=== PATIENT | male | born 1990 | race Two or more races ===

== ENCOUNTER 2019-09-05 02:22 | Observation (INO) | payer OTHER ==
[~2019-09-05] VITALS: Ht 190.5 cm; Wt 101.7 kg
[~2019-09-05 02:22] MED LIST: DILT180C29 PO; FLEC100T PO; RIVA20TA2 PO
[2019-09-05 02:43] LABS: BASO % 1 % (0-3); EOS # 0.2 x10^3/uL (0.0-0.7); EOS % 3 % (0-3); HEMOGLOBIN 15.7 g/dL (13.0-17.5); LYMPH # 3.3 x10^3/uL (1.0-4.8); LYMPH % 48 % (24-48); MEAN CORPUSCULAR HEMOGLOBIN 30 pg (25-35); MEAN CORPUSCULAR HGB CONC 34 g/dL (31-37); MEAN CORPUSCULAR VOLUME 88 fL (79-100); MONO # 0.7 x10^3/uL (0.0-1.1); MONO % 10 % (0-9); NEUT # 2.7 x10^3/uL (1.8-7.7); NEUT % 39 % (31-73); PLATELET COUNT 228 x10^3/uL (140-400); RED BLOOD COUNT 5.25 x10^6/uL (4.30-5.70); RED CELL DISTRIBUTION WIDTH 13.6 % (11.5-14.5)
[2019-09-05] MEDS: NITROGLYCERIN SUBLINGUAL 0.4 MG BOTTLE OF 25. SL PRN ×2 (02:51→03:08)
[2019-09-05 02:53] LABS: CALCIUM 8.9 mg/dL (8.5-10.1); CREATININE 1.1 mg/dL (0.7-1.3); GFR 79.1; POTASSIUM 3.7 mmol/L (3.5-5.1)
[2019-09-05 02:58] LABS: ALBUMIN 4.1 g/dL (3.4-5.0); TOTAL PROTEIN 7.5 g/dL (6.4-8.2)
[2019-09-05 02:59] LABS: ALBUMIN/GLOBULIN RATIO 1.2 (1.0-1.7); MAGNESIUM 2.1 mg/dL (1.8-2.4)
[2019-09-05] MEDS ORDERED: ASPIRIN CHEWABLE 81 MG TABLET. PO ONE (03:00)
--- NOTE | 2019-09-05 03:01 | RAD ---
EXAM: CHEST 1 VIEW History: Chest pain COMPARISON: 08/09/2019 TECHNIQUE: Single portable radiograph of the chest FINDINGS: The cardiac silhouette is unremarkable. The lungs are clear bilaterally. The costophrenic sulci are clear and well demarcated. . IMPRESSION: No radiographic evidence of an acute cardiopulmonary process. Electronically signed by: Bayron Vyas MD (09/05/2019 2:58 AM) [id number]
[2019-09-05 03:03] LABS: AMPHETAMINE/METHAMPHETAMINE NEG (NEG); BARBITURATES NEG (NEG); BENZODIAZEPINES NEG (NEG); CANNABINOIDS NEG (NEG); COCAINE NEG (NEG); METHADONE NEG (NEG); OPIATES NEG (NEG); PHENCYCLIDINE NEG (NEG)
--- NOTE | 2019-09-05 03:05 | PHYS DOC ---
Past Medical History Past Medical History: A-Fib, High Cholesterol, Hepatitis, Other Additional Past Medical Histor: HEP C, CHRONIC BACK PAIN Past Surgical History: Other Additional Past Surgical Histo: UNKNOWN SURGICAL HISTORY Alcohol Use: None Drug Use: None The HEART Score for CP Pts HEART Score for Chest Pain: HEART Score for Chest Pain Response (Comments) Value History Slighlty/Non-Suspicious 0 ECG Nonspecific Repolarizatio 1 Age < 45 0 Risk Factors 1 or 2 Risk Factors 1 Troponin < Normal Limit 0 Total 2 Risk Factors: Risk Factors: DM, Current or recent (<one month) smoker, HTN, HLP, family history of CAD, obesity. Risk Scores: Score 0 - 3: 2.5% MACE over next 6 weeks - Discharge Home Score 4 - 6: 20.3% MACE over next 6 weeks - Admit for Clinical Observation Score 7 - 10: 72.7% MACE over next 6 weeks - Early Invasive Strategies Attending Signature I have participated in the care of this patient and I have reviewed and agree with all pertinent clinical information above including history, exam, and recommendations. Adult General Chief Complaint Chief Complaint: CHEST PAIN HPI HPI 28-year-old male with underlying history of atrial fib/atrial flutter presents to the emergency Department complaints of left-sided chest pain radiation of his left arm into his neck. He describes a squeezing sensation, states is pretty constant. Pain started around midnight. He does describe nausea. Patient is well describes history of syncope most recent days ago. He has underlying history of atrial fibrillation, hyperlipidemia and hepatitis. Nothing makes his symptoms worse, nothing makes his symptoms better. Review of Systems Review of Systems Constitutional: Denies fever or chills [] Respiratory: Denies cough or shortness of breath [] Cardiovascular: No additional information not addressed in HPI [] GI: Denies abdominal pain, + nausea, no vomiting, bloody stools or diarrhea [] Musculoskeletal: Denies back pain or joint pain [] Neurologic: Denies headache, focal weakness or sensory changes [] All other systems were reviewed and found to be within normal limits, except as documented in this note. Current Medications Current Medications Current Medications Medications (Trade) Dose Ordered Sig/Kwaku Start Time Stop Time Status Last Admin Dose Admin Aspirin (Children'S Aspirin) 324 mg 1X ONCE 09/05/19 03:00 09/05/19 03:01 DC 09/05/19 02:50 324 MG Morphine Sulfate (Morphine Sulfate) 2 mg 1X ONCE 09/05/19 03:15 09/05/19 03:16 DC 09/05/19 03:34 2 MG Nitroglycerin (Nitrostat) 0.4 mg PRN Q5MIN PRN 09/05/19 02:45 09/05/19 03:29 DC 09/05/19 03:08 0.4 MG Ondansetron HCl (Zofran) 4 mg 1X ONCE 09/05/19 03:15 09/05/19 03:16 DC 09/05/19 03:34 4 MG Allergies Allergies Allergies Coded Allergies Type Severity Reaction Last Updated Verified No Known Drug Allergies 08/09/19 No Physical Exam Physical Exam Constitutional: Well developed, well nourished, no acute distress, non-toxic appearance. [] HENT: Normocephalic, atraumatic, bilateral external ears normal, oropharynx moist, no oral exudates, nose normal. [] Eyes: PERRLA, EOMI, conjunctiva normal, no discharge. [] Neck: Normal range of motion, no tenderness, supple, no stridor. [] Cardiovascular:Heart rate regular rhythm, no murmur [] Lungs & Thorax: Bilateral breath sounds clear to auscultation [] Abdomen: Bowel sounds normal, soft, no tenderness, no masses, no pulsatile masses. [] Skin: Warm, dry, no erythema, no rash. [] Extremities: No tenderness, no edema. [] Neurologic: Alert and oriented X 3, no focal deficits noted. [] Psychologic: Affect normal, judgement normal, mood normal. [] Current Patient Data Vital Signs Vital Signs Date Time Temp Pulse Resp B/P (MAP) Pulse Ox O2 Delivery O2 Flow Rate FiO2 09/05/19 03:12 55 16 114/72 (86) 97 Room Air 09/05/19 02:32 98.2 98.2 Lab Values Laboratory Tests Test 09/05/19 02:36 09/05/19 02:51 White Blood Count 7.0 x10^3/uL (4.0-11.0) Red Blood Count 5.25 x10^6/uL (4.30-5.70) Hemoglobin 15.7 g/dL (13.0-17.5) Hematocrit 46.0 % (39.0-53.0) Mean Corpuscular Volume 88 fL (79-100) Mean Corpuscular Hemoglobin 30 pg (25-35) Mean Corpuscular Hemoglobin Concent 34 g/dL (31-37) Red Cell Distribution Width 13.6 % (11.5-14.5) Platelet Count 228 x10^3/uL (140-400) Neutrophils (%) (Auto) 39 % (31-73) Lymphocytes (%) (Auto) 48 % (24-48) Monocytes (%) (Auto) 10 % (0-9) H Eosinophils (%) (Auto) 3 % (0-3) Basophils (%) (Auto) 1 % (0-3) Neutrophils # (Auto) 2.7 x10^3/uL (1.8-7.7) Lymphocytes # (Auto) 3.3 x10^3/uL (1.0-4.8) Monocytes # (Auto) 0.7 x10^3/uL (0.0-1.1) Eosinophils # (Auto) 0.2 x10^3/uL (0.0-0.7) Basophils # (Auto) 0.0 x10^3/uL (0.0-0.2) Sodium Level 140 mmol/L (136-145) Potassium Level 3.7 mmol/L (3.5-5.1) Chloride Level 104 mmol/L (98-107) Carbon Dioxide Level 29 mmol/L (21-32) Anion Gap 7 (6-14) Blood Urea Nitrogen 13 mg/dL (8-26) Creatinine 1.1 mg/dL (0.7-1.3) Estimated GFR (Cockcroft-Gault) 79.1 BUN/Creatinine Ratio 12 (6-20) Glucose Level 88 mg/dL (70-99) Calcium Level 8.9 mg/dL (8.5-10.1) Magnesium Level 2.1 mg/dL (1.8-2.4) Total Bilirubin 1.0 mg/dL (0.2-1.0) Aspartate Amino Transferase (AST) 42 U/L (15-37) H Alanine Aminotransferase (ALT) 75 U/L (16-63) H Alkaline Phosphatase 62 U/L (46-116) Troponin I Quantitative < 0.017 ng/mL (0.000-0.055) LD-San-S-Type Natriuretic Peptide 18 pg/mL (0-124) Total Protein 7.5 g/dL (6.4-8.2) Albumin 4.1 g/dL (3.4-5.0) Albumin/Globulin Ratio 1.2 (1.0-1.7) Urine Opiates Screen Neg (NEG) Urine Methadone Screen Neg (NEG) Urine Barbiturates Neg (NEG) Urine Phencyclidine Screen Neg (NEG) Urine Amphetamine/Methamphetamine Neg (NEG) Urine Benzodiazepines Screen Neg (NEG) Urine Cocaine Screen Neg (NEG) Urine Cannabinoids Screen Neg (NEG) Urine Ethyl Alcohol Neg (NEG) Laboratory Tests 09/05/19 02:36 Laboratory Tests 09/05/19 02:36 EKG EKG EKG reviewed, normal sinus rhythm, heart rate 54, no evidence of ST elevation IA, interpretation time 0233, normal axis[] Radiology/Procedures Radiology/Procedures [] Course & Med Decision Making Course & Med Decision Making Pertinent Labs and Imaging studies reviewed. (See chart for details) []28-year-old male with underlying history of atrial fib/atrial flutter presents to the emergency Department complaints of left-sided chest pain radiation of his left arm into his neck. He describes a squeezing sensation, states is pretty constant. Pain started around midnight. He does describe nausea. Patient is w ell describes history of syncope most recent days ago. He has underlying history of atrial fibrillation, hyperlipidemia and hepatitis. Nothing makes his symptoms worse, nothing makes his symptoms better. Dragon Disclaimer Dragon Disclaimer This electronic medical record was generated, in whole or in part, using a voice recognition dictation system. Departure Departure Referrals: UNKNOWN PCP NAME (PCP) NATHANAEL ORTIZ MD Sep 05, 2019 03:05
[2019-09-05] MEDS ORDERED: MORPHINE SULFATE 2 MG/ML VIAL. IV ONE (03:15)
[2019-09-05] MEDS ORDERED: ONDANSETRON PF 4 MG/2 ML VIAL. IV ONE (03:15)
[2019-09-05] MEDS ORDERED: NITROGLYCERIN SUBLINGUAL 0.4 MG BOTTLE OF 25. SL PRN (03:30)
[2019-09-05] MEDS ORDERED: ONDANSETRON PF 4 MG/2 ML VIAL. IV PRN (03:30)
[2019-09-05] MEDS ORDERED: ACETAMINOPHEN 325 MG TABLET. PO PRN (03:30)
[2019-09-05 04:56] VITALS: BP 119/77
[2019-09-05] MEDS: MORPHINE SULFATE 2 MG/ML VIAL. IV PRN ×3 (06:06→20:49)
[2019-09-05 07:00] VITALS: BP 127/75
[2019-09-05] MEDS ORDERED: FLU VAX QS 2019-20 (36MOS+)/PF 0.5 ML SYRINGE. VAX IM ONE (09:00)
--- NOTE | 2019-09-05 09:10 | PDOC1 ---
History and Physical Date of Admission Date of Admission DATE: 09/05/19 TIME: 09:10 Identification/Chief Complaint Chief Complaint Chest pain Source Source: Patient History of Present Illness History of Present Illness Mr Mcclelland is a 28yo M incarcerated currently with PMHx A-Fib, High Cholesterol, Hepatitis C (active) who p/w left-sided chest pain radiation of his left arm into his neck and syncopal episodes. He describes a squeezing sensation, states is pretty constant. Pain started around midnight. He does describe nausea. Patient is well describes history of syncope most recent days ago. He has underlying history of atrial fibrillation, hyperlipidemia and hepatitis. Nothing makes his symptoms worse, nothing makes his symptoms better. He has been keeping a journal of his syncopal episodes and he also notes he has not been eating lately, claims it is due to 2nd floor, top bunk placement. EKG is NSR and troponin x2 negative. AST, ALT mildly elevated. CXR clear. He was successfully cardioverted previously, continues on xarelto. Past Medical History Cardiovascular: AFIB, HTN, Hyperlipidemia Pulmonary: No pertinent hx CENTRAL NERVOUS SYSTEM: Migraine Heme/Onc: Other Hepatobiliary: Hep A/B/C Psych: Anxiety, Other Renal/: Acute renal failure Endocrine: No pertinent hx Past Surgical History Past Surgical History: Other Family History Family History: Other Social History Smoke: No ALCOHOL: none Drugs: Cocaine Current Problem List Problem List Problems Medical Problems: (1) Chest pain Status: Acute Current Medications Current Medications Current Medications Aspirin (Children'S Aspirin) 324 mg 1X ONCE PO Last administered on 09/05/19at 02:50; Start 09/05/19 at 03:00; Stop 09/05/19 at 03:01; Status DC Nitroglycerin (Nitrostat) 0.4 mg PRN Q5MIN PRN SL CP RATING > 1/10 Last administered on 09/05/19at 03:08; Start 09/05/19 at 02:45; Stop 09/05/19 at 03:29; Status DC Morphine Sulfate (Morphine Sulfate) 2 mg 1X ONCE IV Last administered on 09/05/19at 03:34; Start 09/05/19 at 03:15; Stop 09/05/19 at 03:16; Status DC Ondansetron HCl (Zofran) 4 mg 1X ONCE IV Last administered on 09/05/19at 03:34; Start 09/05/19 at 03:15; Stop 09/05/19 at 03:16; Status DC Ondansetron HCl (Zofran) 4 mg PRN Q8HRS PRN IV NAUSEA/VOMITING; Start 09/05/19 at 03:30; Stop 09/06/19 at 03:29 Morphine Sulfate (Morphine Sulfate) 2 mg PRN Q2HR PRN IV PAIN Last administered on 09/05/19at 06:06; Start 09/05/19 at 03:30; Stop 09/06/19 at 03:29 Acetaminophen (Tylenol) 650 mg PRN Q4HRS PRN PO FEVER; Start 09/05/19 at 03:30; Stop 09/06/19 at 03:29 Nitroglycerin (Nitrostat) 0.4 mg PRN Q5MIN PRN SL CHEST PAIN Last administered on 09/05/19at 06:00; Start 09/05/19 at 03:30; Stop 09/06/19 at 03:29 Influenza Virus Vaccine Quadrival (Afluria Quad 2019-20 (3yr Up) Syringe) 0.5 ml ONCE ONCE VAX IM ; Start 09/05/19 at 09:00; Stop 09/05/19 at 09:01; Status DC Active Scripts Active Reported Flecainide Acetate 100 Mg Tablet 50 Mg PO BID Xarelto (Rivaroxaban) 20 Mg Tablet 20 Mg PO DAILY Allergies Allergies: Coded Allergies: No Known Drug Allergies (Unverified , 08/09/19) ROS General: YES: Fatigue, Malaise, Appetite; No: Chills, Night Sweats, Other PSYCHOLOGICAL ROS: No: Anxiety, Behavioral Disorder, Concentration difficultie, Decreased libido, Depression, Disorientation, Hallucinations, Hostility, Irritablity, Memory difficulties, Mood Swings, Obsessive thoughts, Physical abuse, Sexual abuse, Sleep disturbances, Suicidal ideation, Other Eyes: No Blurry vision, No Decreased vision, No Double vision, No Dry eyes, No Excessive tearing, No Eye Pain, No Itchy Eyes, No Loss of vision, No Photopho sunitha, No Scotomata, No Uses contacts, No Uses glasses, No Other HEENT: No: Heacaches, Visual Changes, Hearing change, Nasal congestion, Nasal discharge, Oral lesions, Sinus pain, Sore Throat, Epistaxis, Sneezing, Snoring, Tinnitus, Vertigo, Vocal changes, Other ALLERGY AND IMMUNOLOGY: No: Hives, Insect Bite Sensitivity, Itchy/Watery Eyes, Nasal Congestion, Post Nasal Drip, Seasonal Allergies, Other Hematological and Lymphatic: No: Bleeding Problems, Blood Clots, Blood Transfusions, Brusing, Night Sweats, Pallor, Swollen Lymph Nodes, Other ENDOCRINE: No: Breast Changes, Galactorrhea, Hair Pattern Changes, Hot Flashes, Malaise/lethargy, Mood Swings, Palpitations, Polydipsia/polyuria, Skin Changes, Temperature Intolerance, Unexpected Weight Changes, Other Breast: No New/Changing Breast Lumps, No Nipple changes, No Nipple discharge, No Other Respiratory: No: Cough, Hemoptysis, Orthopnea, Pleuritic Pain, Shortness of breath, SOB with excertion, Sputum Changes, Stridor, Tachypnea, Wheezing, Other Cardiovascular: yes Chest Pain; No Palpitations, No Orthopnea, No Paroxysmal Noc. Dyspnea, No Edema, No Lt Headedness, No Other Gastrointestinal: No Nausea, No Vomiting, No Abdominal Pain, No Diarrhea, No Constipation, No Melena, No Hematochezia, No Other Genitourinary: No Dysuria, No Frequency, No Incontinence, No Hematuria, No Retention, No Discharge, No Urgency, No Pain, No Flank Pain, No Other, No , No , No , No , No , No , No Musculoskeletal: No Gait Disturbance, No Joint Pain, No Joint Stiffness, No Joint Swelling, No Muscle Pain, No Muscular Weakness, No Pain In:, No Swelling In:, No Other Neurological: No Behavorial Changes, No Bowel/Bladder ControlChng, No Confusion, No Dizziness, No Gait Disturbance, No Headaches, No Impaired Coord/balance, No Memory Loss, No Numbness/Tingling, No Seizures, No Speech Problems, No Tremors, No Visual Changes, No Weakness, No Other Skin: No Dry Skin, No Eczema, No Hair Changes, No Lumps, No Mole Changes, No Mottling, No Nail Changes, No Pruritus, No Rash, No Skin Lesion Changes, No Other, No Acne Physical Exam General: Alert, Oriented X3, Cooperative, No acute distress HEENT: Atraumatic, PERRLA, EOMI, Mucous membr. moist/pink Lungs: Clear to auscultation, Normal air movement Heart: S1S2, RRR, no thrills, no rubs, no gallops, no murmurs Rectal Exam: not examined Extremities: No clubbing, No cyanosis, No edema, Normal pulses, No tenderness/swelling Skin: No rashes, No breakdown, No significant lesion Neuro: Normal gait, Normal speech, Strength at 5/5 X4 ext, Normal tone, Sensation intact, Cranial nerves 3-12 NL, Reflexes 2+ Psych/Mental Status: Mental status NL, Mood NL Vitals Vitals Vital Signs Date Time Temp Pulse Resp B/P (MAP) Pulse Ox O2 Delivery O2 Flow Rate FiO2 09/05/19 07:00 97.9 45 16 127/75 (92) 98 Room Air 97.9 Labs Labs Laboratory Tests Test 09/05/19 02:36 09/05/19 02:51 09/05/19 06:55 White Blood Count 7.0 x10^3/uL (4.0-11.0) Red Blood Count 5.25 x10^6/uL (4.30-5.70) Hemoglobin 15.7 g/dL (13.0-17.5) Hematocrit 46.0 % (39.0-53.0) Mean Corpuscular Volume 88 fL (79-100) Mean Corpuscular Hemoglobin 30 pg (25-35) Mean Corpuscular Hemoglobin Concent 34 g/dL (31-37) Red Cell Distribution Width 13.6 % (11.5-14.5) Platelet Count 228 x10^3/uL (140-400) Neutrophils (%) (Auto) 39 % (31-73) Lymphocytes (%) (Auto) 48 % (24-48) Monocytes (%) (Auto) 10 % (0-9) Eosinophils (%) (Auto) 3 % (0-3) Basophils (%) (Auto) 1 % (0-3) Neutrophils # (Auto) 2.7 x10^3/uL (1.8-7.7) Lymphocytes # (Auto) 3.3 x10^3/uL (1.0-4.8) Monocytes # (Auto) 0.7 x10^3/uL (0.0-1.1) Eosinophils # (Auto) 0.2 x10^3/uL (0.0-0.7) Basophils # (Auto) 0.0 x10^3/uL (0.0-0.2) Sodium Level 140 mmol/L (136-145) Potassium Level 3.7 mmol/L (3.5-5.1) Chloride Level 104 mmol/L (98-107) Carbon Dioxide Level 29 mmol/L (21-32) Anion Gap 7 (6-14) Blood Urea Nitrogen 13 mg/dL (8-26) Creatinine 1.1 mg/dL (0.7-1.3) Estimated GFR (Cockcroft-Gault) 79.1 BUN/Creatinine Ratio 12 (6-20) Glucose Level 88 mg/dL (70-99) Calcium Level 8.9 mg/dL (8.5-10.1) Magnesium Level 2.1 mg/dL (1.8-2.4) Total Bilirubin 1.0 mg/dL (0.2-1.0) Aspartate Amino Transf (AST/SGOT) 42 U/L (15-37) Alanine Aminotransferase (ALT/SGPT) 75 U/L (16-63) Alkaline Phosphatase 62 U/L (46-116) Troponin I Quantitative < 0.017 ng/mL (0.000-0.055) < 0.017 ng/mL (0.000-0.055) ZB-Ifb-P-Type Natriuretic Peptide 18 pg/mL (0-124) Total Protein 7.5 g/dL (6.4-8.2) Albumin 4.1 g/dL (3.4-5.0) Albumin/Globulin Ratio 1.2 (1.0-1.7) Urine Opiates Screen Neg (NEG) Urine Methadone Screen Neg (NEG) Urine Barbiturates Neg (NEG) Urine Phencyclidine Screen Neg (NEG) Urine Amphetamine/Methamphetamine Neg (NEG) Urine Benzodiazepines Screen Neg (NEG) Urine Cocaine Screen Neg (NEG) Urine Cannabinoids Screen Neg (NEG) Urine Ethyl Alcohol Neg (NEG) Laboratory Tests Test 09/05/19 02:36 09/05/19 02:51 09/05/19 06:55 White Blood Count 7.0 x10^3/uL (4.0-11.0) Red Blood Count 5.25 x10^6/uL (4.30-5.70) Hemoglobin 15.7 g/dL (13.0-17.5) Hematocrit 46.0 % (39.0-53.0) Mean Corpuscular Volume 88 fL (79-100) Mean Corpuscular Hemoglobin 30 pg (25-35) Mean Corpuscular Hemoglobin Concent 34 g/dL (31-37) Red Cell Distribution Width 13.6 % (11.5-14.5) Platelet Count 228 x10^3/uL (140-400) Neutrophils (%) (Auto) 39 % (31-73) Lymphocytes (%) (Auto) 48 % (24-48) Monocytes (%) (Auto) 10 % (0-9) Eosinophils (%) (Auto) 3 % (0-3) Basophils (%) (Auto) 1 % (0-3) Neutrophils # (Auto) 2.7 x10^3/uL (1.8-7.7) Lymphocytes # (Auto) 3.3 x10^3/uL (1.0-4.8) Monocytes # (Auto) 0.7 x10^3/uL (0.0-1.1) Eosinophils # (Auto) 0.2 x10^3/uL (0.0-0.7) Basophils # (Auto) 0.0 x10^3/uL (0.0-0.2) Sodium Level 140 mmol/L (136-145) Potassium Level 3.7 mmol/L (3.5-5.1) Chloride Level 104 mmol/L (98-107) Carbon Dioxide Level 29 mmol/L (21-32) Anion Gap 7 (6-14) Blood Urea Nitrogen 13 mg/dL (8-26) Creatinine 1.1 mg/dL (0.7-1.3) Estimated GFR (Cockcroft-Gault) 79.1 BUN/Creatinine Ratio 12 (6-20) Glucose Level 88 mg/dL (70-99) Calcium Level 8.9 mg/dL (8.5-10.1) Magnesium Level 2.1 mg/dL (1.8-2.4) Total Bilirubin 1.0 mg/dL (0.2-1.0) Aspartate Amino Transf (AST/SGOT) 42 U/L (15-37) Alanine Aminotransferase (ALT/SGPT) 75 U/L (16-63) Alkaline Phosphatase 62 U/L (46-116) Troponin I Quantitative < 0.017 ng/mL (0.000-0.055) < 0.017 ng/mL (0.000-0.055) JR-Oev-T-Type Natriuretic Peptide 18 pg/mL (0-124) Total Protein 7.5 g/dL (6.4-8.2) Albumin 4.1 g/dL (3.4-5.0) Albumin/Globulin Ratio 1.2 (1.0-1.7) Urine Opiates Screen Neg (NEG) Urine Methadone Screen Neg (NEG) Urine Barbiturates Neg (NEG) Urine Phencyclidine Screen Neg (NEG) Urine Amphetamine/Methamphetamine Neg (NEG) Urine Benzodiazepines Screen Neg (NEG) Urine Cocaine Screen Neg (NEG) Urine Cannabinoids Screen Neg (NEG) Urine Ethyl Alcohol Neg (NEG) Images Images CXR - The cardiac silhouette is unremarkable. The lungs are clear bilaterally. The costophrenic sulci are clear and well demarcated. . IMPRESSION: No radiographic evidence of an acute cardiopulmonary process. VTE Prophylaxis Ordered VTE Prophylaxis Devices: Yes VTE Pharmacological Prophylaxi: Yes Assessment/Plan Assessment/Plan A/P: Syncopal episode - sinus rhythm, will obtain repeat echo, was seen by neurology with EEG and MRI previously negative Chest pain - atypical. AMI ruled out, but awaiting echo PAFIB s/p CV x2. Most recent 2 months ago. On Xarerlto for stroke prevention- CT head negative for acute stroke. On flecainide for rhythm maintenance. Hypertension; controlled Hyperlipidemia Sinus bradycardia; lowest 38. No pauses noted. H/o drug abuse Hep C FEN - Cardiac PPX - Xarelto FULL CODE Dispo - inpatient for syncope/acs r/o MAGEN DELEON MD Sep 05, 2019 09:10
--- NOTE | 2019-09-05 10:12 | EKG ---
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
[2019-09-05 11:17] VITALS: BP 103/60
--- NOTE | 2019-09-05 11:33 | PDOC2 ---
CONSULT Date of Consult Date of Consult DATE: 09/05/19 TIME: 11:29 Reason for Consult Reason for Consult: Chest pain Referring Physician Referring Physician: Dr. Capps Identification/Chief Complaint Chief Complaint Chest pain Source Source: Chart review, Patient History of Present Illness Reason for Visit: The patient is a 28-year-old male who reports an day of episodes of chest pressure. Patient came to the emergency room and evaluation there showed a sinus rhythm on his EKG. Troponin has been normal 2. Chest x-ray shows no acute changes. Patient has a history of hypertension, paroxysmal atrial fibrillation and hepatitis C. He reports some episodes of near syncope as well over the last several days. Overnight the patient's rhythm has been stable. Today he continues to report some chest discomfort. Past Medical History Cardiovascular: AFIB, HTN, Hyperlipidemia Pulmonary: No pertinent hx CENTRAL NERVOUS SYSTEM: Migraine Heme/Onc: Other Hepatobiliary: Hep A/B/C Psych: Anxiety, Other Endocrine: No pertinent hx Past Surgical History Past Surgical History: Other, No pertinent history Family History Family History: Hypertension, Other Social History ALCOHOL: none Drugs: Cocaine Lives: Roommate Current Problem List Problem List Problems Medical Problems: (1) Chest pain Status: Acute Current Medications Current Medications Current Medications Aspirin (Children'S Aspirin) 324 mg 1X ONCE PO Last administered on 09/05/19at 02:50; Start 09/05/19 at 03:00; Stop 09/05/19 at 03:01; Status DC Nitroglycerin (Nitrostat) 0.4 mg PRN Q5MIN PRN SL CP RATING > 1/10 Last administered on 09/05/19at 03:08; Start 09/05/19 at 02:45; Stop 09/05/19 at 03:29; Status DC Morphine Sulfate (Morphine Sulfate) 2 mg 1X ONCE IV Last administered on 09/05/19at 03:34; Start 09/05/19 at 03:15; Stop 09/05/19 at 03:16; Status DC Ondansetron HCl (Zofran) 4 mg 1X ONCE IV Last administered on 09/05/19at 03:34; Start 09/05/19 at 03:15; Stop 09/05/19 at 03:16; Status DC Ondansetron HCl (Zofran) 4 mg PRN Q8HRS PRN IV NAUSEA/VOMITING; Start 09/05/19 at 03:30; Stop 09/06/19 at 03:29 Morphine Sulfate (Morphine Sulfate) 2 mg PRN Q2HR PRN IV PAIN Last administered on 09/05/19at 06:06; Start 09/05/19 at 03:30; Stop 09/06/19 at 03:29 Acetaminophen (Tylenol) 650 mg PRN Q4HRS PRN PO FEVER; Start 09/05/19 at 03:30; Stop 09/06/19 at 03:29 Nitroglycerin (Nitrostat) 0.4 mg PRN Q5MIN PRN SL CHEST PAIN Last administered on 09/05/19at 06:00; Start 09/05/19 at 03:30; Stop 09/06/19 at 03:29 Influenza Virus Vaccine Quadrival (Afluria Quad 2019-20 (3yr Up) Syringe) 0.5 ml ONCE ONCE VAX IM ; Start 09/05/19 at 09:00; Stop 09/05/19 at 09:01; Status DC Active Scripts Active Reported Flecainide Acetate 100 Mg Tablet 50 Mg PO BID Xarelto (Rivaroxaban) 20 Mg Tablet 20 Mg PO DAILY Allergies Allergies: Coded Allergies: No Known Drug Allergies (Unverified , 08/09/19) ROS Cardiovascular: yes Chest Pain Neurological: Yes Dizziness Physical Exam General: mild distress HEENT: Atraumatic Lungs: Clear to auscultation Heart: Regular rate Abdomen: Normal bowel sounds Vitals VITALS Vital Signs Date Time Temp Pulse Resp B/P (MAP) Pulse Ox O2 Delivery O2 Flow Rate FiO2 09/05/19 11:17 97.8 50 16 103/60 (74) 98 Room Air 97.8 Labs Labs Laboratory Tests Test 09/05/19 02:36 09/05/19 02:51 09/05/19 06:55 09/05/19 09:25 White Blood Count 7.0 x10^3/uL (4.0-11.0) Red Blood Count 5.25 x10^6/uL (4.30-5.70) Hemoglobin 15.7 g/dL (13.0-17.5) Hematocrit 46.0 % (39.0-53.0) Mean Corpuscular Volume 88 fL (79-100) Mean Corpuscular Hemoglobin 30 pg (25-35) Mean Corpuscular Hemoglobin Concent 34 g/dL (31-37) Red Cell Distribution Width 13.6 % (11.5-14.5) Platelet Count 228 x10^3/uL (140-400) Neutrophils (%) (Auto) 39 % (31-73) Lymphocytes (%) (Auto) 48 % (24-48) Monocytes (%) (Auto) 10 % (0-9) Eosinophils (%) (Auto) 3 % (0-3) Basophils (%) (Auto) 1 % (0-3) Neutrophils # (Auto) 2.7 x10^3/uL (1.8-7.7) Lymphocytes # (Auto) 3.3 x10^3/uL (1.0-4.8) Monocytes # (Auto) 0.7 x10^3/uL (0.0-1.1) Eosinophils # (Auto) 0.2 x10^3/uL (0.0-0.7) Basophils # (Auto) 0.0 x10^3/uL (0.0-0.2) Sodium Level 140 mmol/L (136-145) Potassium Level 3.7 mmol/L (3.5-5.1) Chloride Level 104 mmol/L (98-107) Carbon Dioxide Level 29 mmol/L (21-32) Anion Gap 7 (6-14) Blood Urea Nitrogen 13 mg/dL (8-26) Creatinine 1.1 mg/dL (0.7-1.3) Estimated GFR (Cockcroft-Gault) 79.1 BUN/Creatinine Ratio 12 (6-20) Glucose Level 88 mg/dL (70-99) Calcium Level 8.9 mg/dL (8.5-10.1) Magnesium Level 2.1 mg/dL (1.8-2.4) Total Bilirubin 1.0 mg/dL (0.2-1.0) Aspartate Amino Transf (AST/SGOT) 42 U/L (15-37) Alanine Aminotransferase (ALT/SGPT) 75 U/L (16-63) Alkaline Phosphatase 62 U/L (46-116) Troponin I Quantitative < 0.017 ng/mL (0.000-0.055) < 0.017 ng/mL (0.000-0.055) < 0.017 ng/mL (0.000-0.055) VK-Rmx-B-Type Natriuretic Peptide 18 pg/mL (0-124) Total Protein 7.5 g/dL (6.4-8.2) Albumin 4.1 g/dL (3.4-5.0) Albumin/Globulin Ratio 1.2 (1.0-1.7) Urine Opiates Screen Neg (NEG) Urine Methadone Screen Neg (NEG) Urine Barbiturates Neg (NEG) Urine Phencyclidine Screen Neg (NEG) Urine Amphetamine/Methamphetamine Neg (NEG) Urine Benzodiazepines Screen Neg (NEG) Urine Cocaine Screen Neg (NEG) Urine Cannabinoids Screen Neg (NEG) Urine Ethyl Alcohol Neg (NEG) Laboratory Tests Test 09/05/19 02:36 09/05/19 02:51 09/05/19 06:55 09/05/19 09:25 White Blood Count 7.0 x10^3/uL (4.0-11.0) Red Blood Count 5.25 x10^6/uL (4.30-5.70) Hemoglobin 15.7 g/dL (13.0-17.5) Hematocrit 46.0 % (39.0-53.0) Mean Corpuscular Volume 88 fL (79-100) Mean Corpuscular Hemoglobin 30 pg (25-35) Mean Corpuscular Hemoglobin Concent 34 g/dL (31-37) Red Cell Distribution Width 13.6 % (11.5-14.5) Platelet Count 228 x10^3/uL (140-400) Neutrophils (%) (Auto) 39 % (31-73) Lymphocytes (%) (Auto) 48 % (24-48) Monocytes (%) (Auto) 10 % (0-9) Eosinophils (%) (Auto) 3 % (0-3) Basophils (%) (Auto) 1 % (0-3) Neutrophils # (Auto) 2.7 x10^3/uL (1.8-7.7) Lymphocytes # (Auto) 3.3 x10^3/uL (1.0-4.8) Monocytes # (Auto) 0.7 x10^3/uL (0.0-1.1) Eosinophils # (Auto) 0.2 x10^3/uL (0.0-0.7) Basophils # (Auto) 0.0 x10^3/uL (0.0-0.2) Sodium Level 140 mmol/L (136-145) Potassium Level 3.7 mmol/L (3.5-5.1) Chloride Level 104 mmol/L (98-107) Carbon Dioxide Level 29 mmol/L (21-32) Anion Gap 7 (6-14) Blood Urea Nitrogen 13 mg/dL (8-26) Creatinine 1.1 mg/dL (0.7-1.3) Estimated GFR (Cockcroft-Gault) 79.1 BUN/Creatinine Ratio 12 (6-20) Glucose Level 88 mg/dL (70-99) Calcium Level 8.9 mg/dL (8.5-10.1) Magnesium Level 2.1 mg/dL (1.8-2.4) Total Bilirubin 1.0 mg/dL (0.2-1.0) Aspartate Amino Transf (AST/SGOT) 42 U/L (15-37) Alanine Aminotransferase (ALT/SGPT) 75 U/L (16-63) Alkaline Phosphatase 62 U/L (46-116) Troponin I Quantitative < 0.017 ng/mL (0.000-0.055) < 0.017 ng/mL (0.000-0.055) < 0.017 ng/mL (0.000-0.055) VI-Ern-H-Type Natriuretic Peptide 18 pg/mL (0-124) Total Protein 7.5 g/dL (6.4-8.2) Albumin 4.1 g/dL (3.4-5.0) Albumin/Globulin Ratio 1.2 (1.0-1.7) Urine Opiates Screen Neg (NEG) Urine Methadone Screen Neg (NEG) Urine Barbiturates Neg (NEG) Urine Phencyclidine Screen Neg (NEG) Urine Amphetamine/Methamphetamine Neg (NEG) Urine Benzodiazepines Screen Neg (NEG) Urine Cocaine Screen Neg (NEG) Urine Cannabinoids Screen Neg (NEG) Urine Ethyl Alcohol Neg (NEG) Images Images Chest x-ray shows no acute process. Assessment/Plan Assessment/Plan 1. Chest pain. Initial 2 troponins are normal. EKG shows no ischemic changes. Pain has persisted. We'll complete rule out protocol. We'll check echocardiogram. 2. Reported history of paroxysmal atrial fibrillation. Patient remains in a sinus rhythm. We'll continue on monitoring. He may require outpatient m onitoring. 3. History of dizziness and near syncope. Rhythm again appears normal. Continue to monitor. 4. History of hepatitis C. Thank you for allowing us to participate in the care of your patient. ELSY AGUILAR MD Sep 05, 2019 11:33
[2019-09-05] MEDS: FLECAINIDE ACETATE 50 MG TABLET. PO SCH ×2 (13:00→23:30)
[2019-09-05] MEDS: ANTI-COAG MONITOR BY PHARMACY. MC PRN (14:42)
[2019-09-05 14:45] VITALS: BP 131/66
[2019-09-05] MEDS: RIVAROXABAN 10 MG TABLET. PO SCH (17:25)
[2019-09-05 19:00] VITALS: BP 139/79
[2019-09-05] MEDS ORDERED: ZOLPIDEM 5 MG TABLET. PO PRN (19:45)
[2019-09-05] MEDS ORDERED: PROCHLORPERAZINE 10 MG/2 ML VIAL. IV PRN (22:45)
[2019-09-05 23:00] VITALS: BP 121/72
[2019-09-06 03:00] VITALS: BP 107/64
[2019-09-06 05:26] LABS: BASO # 0.1 x10^3/uL (0.0-0.2); BASO % 1 % (0-3); EOS # 0.2 x10^3/uL (0.0-0.7); EOS % 3 % (0-3); HEMATOCRIT 44.4 % (39.0-53.0); HEMOGLOBIN 15.2 g/dL (13.0-17.5); LYMPH # 2.3 x10^3/uL (1.0-4.8); LYMPH % 33 % (24-48); MEAN CORPUSCULAR HEMOGLOBIN 30 pg (25-35); MEAN CORPUSCULAR HGB CONC 34 g/dL (31-37); MEAN CORPUSCULAR VOLUME 87 fL (79-100); MONO # 0.8 x10^3/uL (0.0-1.1); MONO % 12 % (0-9); NEUT # 3.7 x10^3/uL (1.8-7.7); NEUT % 52 % (31-73); PLATELET COUNT 216 x10^3/uL (140-400); RED BLOOD COUNT 5.08 x10^6/uL (4.30-5.70); RED CELL DISTRIBUTION WIDTH 13.4 % (11.5-14.5); WHITE BLOOD COUNT 7.2 x10^3/uL (4.0-11.0)
[2019-09-06 05:51] LABS: ALBUMIN 3.7 g/dL (3.4-5.0); ALBUMIN/GLOBULIN RATIO 1.1 (1.0-1.7); CALCIUM 8.3 mg/dL (8.5-10.1); CREATININE 1.2 mg/dL (0.7-1.3); GFR 71.6; POTASSIUM 3.9 mmol/L (3.5-5.1); TOTAL BILIRUBIN 0.9 mg/dL (0.2-1.0); TOTAL PROTEIN 7.2 g/dL (6.4-8.2)
[2019-09-06 07:23] VITALS: BP 120/51
[2019-09-06] MEDS: FLECAINIDE ACETATE 50 MG TABLET. PO SCH (08:28)
[2019-09-06] MEDS: ANTI-COAG MONITOR BY PHARMACY. MC PRN (08:34)
--- NOTE | 2019-09-06 10:21 | PDOC ---
PROGRESS NOTES Chief Complaint Chief Complaint A/P: Syncopal episode - sinus rhythm, will obtain repeat echo, was seen by neurology with EEG and MRI previously negative Chest pain - atypical. AMI ruled out, but awaiting echo PAFIB s/p CV x2. Most recent 2 months ago. On Xarerlto for stroke prevention- CT head negative for acute stroke. On flecainide for rhythm maintenance. Hypertension; controlled Hyperlipidemia Sinus bradycardia; lowest 38. No pauses noted. H/o drug abuse Hep C FEN - Cardiac PPX - Xarelto FULL CODE Dispo - inpatient for syncope/acs r/o History of Present Illness History of Present Illness Mr Mcclelland is a 28yo M incarcerated currently with PMHx A-Fib, High Cholesterol, Hepatitis C (active) who p/w left-sided chest pain radiation of his left arm into his neck and syncopal episodes. He describes a squeezing sensation, states is pretty constant. Pain started around midnight. He does describe nausea. Patient is well describes history of syncope most recent days ago. He has underlying history of atrial fibrillation, hyperlipidemia and hepatitis. Nothing makes his symptoms worse, nothing makes his symptoms better. He has been keeping a journal of his syncopal episodes and he also notes he has not been eating lately, claims it is due to 2nd floor, top bunk placement. EKG is NSR and troponin x2 negative. AST, ALT mildly elevated. CXR clear. He was successfully cardioverted previously, continues on xarelto. He says he still has nausea, worse last night. He states he is trying to get medical leave from care home. I have informed him he has had successful cardioversion, does not seem that he has any other active medical problems than his hepatitis. Plan: Echo today, plan d/c if normal Vitals Vitals Vital Signs Date Time Temp Pulse Resp B/P (MAP) Pulse Ox O2 Delivery O2 Flow Rate FiO2 09/06/19 08:28 61 120/51 09/06/19 08:00 Room Air 09/06/19 07:23 97.8 16 99 97.8 Physical Exam General: Alert, Oriented X3, Cooperative, No acute distress Heart: Regular rate Lungs: Clear Abdomen: Normal bowel sounds Extremities: No clubbing, No cyanosis, No edema, Normal pulses, No tenderness/swelling Skin: No rashes, No breakdown, No significant lesion Labs LABS Laboratory Tests Test 09/06/19 04:00 White Blood Count 7.2 x10^3/uL (4.0-11.0) Red Blood Count 5.08 x10^6/uL (4.30-5.70) Hemoglobin 15.2 g/dL (13.0-17.5) Hematocrit 44.4 % (39.0-53.0) Mean Corpuscular Volume 87 fL (79-100) Mean Corpuscular Hemoglobin 30 pg (25-35) Mean Corpuscular Hemoglobin Concent 34 g/dL (31-37) Red Cell Distribution Width 13.4 % (11.5-14.5) Platelet Count 216 x10^3/uL (140-400) Neutrophils (%) (Auto) 52 % (31-73) Lymphocytes (%) (Auto) 33 % (24-48) Monocytes (%) (Auto) 12 % (0-9) Eosinophils (%) (Auto) 3 % (0-3) Basophils (%) (Auto) 1 % (0-3) Neutrophils # (Auto) 3.7 x10^3/uL (1.8-7.7) Lymphocytes # (Auto) 2.3 x10^3/uL (1.0-4.8) Monocytes # (Auto) 0.8 x10^3/uL (0.0-1.1) Eosinophils # (Auto) 0.2 x10^3/uL (0.0-0.7) Basophils # (Auto) 0.1 x10^3/uL (0.0-0.2) Sodium Level 141 mmol/L (136-145) Potassium Level 3.9 mmol/L (3.5-5.1) Chloride Level 103 mmol/L (98-107) Carbon Dioxide Level 31 mmol/L (21-32) Anion Gap 7 (6-14) Blood Urea Nitrogen 14 mg/dL (8-26) Creatinine 1.2 mg/dL (0.7-1.3) Estimated GFR (Cockcroft-Gault) 71.6 BUN/Creatinine Ratio 12 (6-20) Glucose Level 88 mg/dL (70-99) Calcium Level 8.3 mg/dL (8.5-10.1) Total Bilirubin 0.9 mg/dL (0.2-1.0) Aspartate Amino Transf (AST/SGOT) 31 U/L (15-37) Alanine Aminotransferase (ALT/SGPT) 66 U/L (16-63) Alkaline Phosphatase 57 U/L (46-116) Total Protein 7.2 g/dL (6.4-8.2) Albumin 3.7 g/dL (3.4-5.0) Albumin/Globulin Ratio 1.1 (1.0-1.7) Assessment and Plan Assessmemt and Plan Problems Medical Problems: (1) Chest pain Status: Acute Comment Review of Relevant I have reviewed the following items derick (where applicable) has been applied. Labs Laboratory Tests Test 09/05/19 02:36 09/05/19 02:51 09/05/19 06:55 09/05/19 09:25 White Blood Count 7.0 x10^3/uL (4.0-11.0) Red Blood Count 5.25 x10^6/uL (4.30-5.70) Hemoglobin 15.7 g/dL (13.0-17.5) Hematocrit 46.0 % (39.0-53.0) Mean Corpuscular Volume 88 fL (79-100) Mean Corpuscular Hemoglobin 30 pg (25-35) Mean Corpuscular Hemoglobin Concent 34 g/dL (31-37) Red Cell Distribution Width 13.6 % (11.5-14.5) Platelet Count 228 x10^3/uL (140-400) Neutrophils (%) (Auto) 39 % (31-73) Lymphocytes (%) (Auto) 48 % (24-48) Monocytes (%) (Auto) 10 % (0-9) Eosinophils (%) (Auto) 3 % (0-3) Basophils (%) (Auto) 1 % (0-3) Neutrophils # (Auto) 2.7 x10^3/uL (1.8-7.7) Lymphocytes # (Auto) 3.3 x10^3/uL (1.0-4.8) Monocytes # (Auto) 0.7 x10^3/uL (0.0-1.1) Eosinophils # (Auto) 0.2 x10^3/uL (0.0-0.7) Basophils # (Auto) 0.0 x10^3/uL (0.0-0.2) Sodium Level 140 mmol/L (136-145) Potassium Level 3.7 mmol/L (3.5-5.1) Chloride Level 104 mmol/L (98-107) Carbon Dioxide Level 29 mmol/L (21-32) Anion Gap 7 (6-14) Blood Urea Nitrogen 13 mg/dL (8-26) Creatinine 1.1 mg/dL (0.7-1.3) Estimated GFR (Cockcroft-Gault) 79.1 BUN/Creatinine Ratio 12 (6-20) Glucose Level 88 mg/dL (70-99) Calcium Level 8.9 mg/dL (8.5-10.1) Magnesium Level 2.1 mg/dL (1.8-2.4) Total Bilirubin 1.0 mg/dL (0.2-1.0) Aspartate Amino Transf (AST/SGOT) 42 U/L (15-37) Alanine Aminotransferase (ALT/SGPT) 75 U/L (16-63) Alkaline Phosphatase 62 U/L (46-116) Troponin I Quantitative < 0.017 ng/mL (0.000-0.055) < 0.017 ng/mL (0.000-0.055) < 0.017 ng/mL (0.000-0.055) AK-Ubw-X-Type Natriuretic Peptide 18 pg/mL (0-124) Total Protein 7.5 g/dL (6.4-8.2) Albumin 4.1 g/dL (3.4-5.0) Albumin/Globulin Ratio 1.2 (1.0-1.7) Urine Opiates Screen Neg (NEG) Urine Methadone Screen Neg (NEG) Urine Barbiturates Neg (NEG) Urine Phencyclidine Screen Neg (NEG) Urine Amphetamine/Methamphetamine Neg (NEG) Urine Benzodiazepines Screen Neg (NEG) Urine Cocaine Screen Neg (NEG) Urine Cannabinoids Screen Neg (NEG) Urine Ethyl Alcohol Neg (NEG) Test 09/06/19 04:00 White Blood Count 7.2 x10^3/uL (4.0-11.0) Red Blood Count 5.08 x10^6/uL (4.30-5.70) Hemoglobin 15.2 g/dL (13.0-17.5) Hematocrit 44.4 % (39.0-53.0) Mean Corpuscular Volume 87 fL (79-100) Mean Corpuscular Hemoglobin 30 pg (25-35) Mean Corpuscular Hemoglobin Concent 34 g/dL (31-37) Red Cell Distribution Width 13.4 % (11.5-14.5) Platelet Count 216 x10^3/uL (140-400) Neutrophils (%) (Auto) 52 % (31-73) Lymphocytes (%) (Auto) 33 % (24-48) Monocytes (%) (Auto) 12 % (0-9) Eosinophils (%) (Auto) 3 % (0-3) Basophils (%) (Auto) 1 % (0-3) Neutrophils # (Auto) 3.7 x10^3/uL (1.8-7.7) Lymphocytes # (Auto) 2.3 x10^3/uL (1.0-4.8) Monocytes # (Auto) 0.8 x10^3/uL (0.0-1.1) Eosinophils # (Auto) 0.2 x10^3/uL (0.0-0.7) Basophils # (Auto) 0.1 x10^3/uL (0.0-0.2) Sodium Level 141 mmol/L (136-145) Potassium Level 3.9 mmol/L (3.5-5.1) Chloride Level 103 mmol/L (98-107) Carbon Dioxide Level 31 mmol/L (21-32) Anion Gap 7 (6-14) Blood Urea Nitrogen 14 mg/dL (8-26) Creatinine 1.2 mg/dL (0.7-1.3) Estimated GFR (Cockcroft-Gault) 71.6 BUN/Creatinine Ratio 12 (6-20) Glucose Level 88 mg/dL (70-99) Calcium Level 8.3 mg/dL (8.5-10.1) Total Bilirubin 0.9 mg/dL (0.2-1.0) Aspartate Amino Transf (AST/SGOT) 31 U/L (15-37) Alanine Aminotransferase (ALT/SGPT) 66 U/L (16-63) Alkaline Phosphatase 57 U/L (46-116) Total Protein 7.2 g/dL (6.4-8.2) Albumin 3.7 g/dL (3.4-5.0) Albumin/Globulin Ratio 1.1 (1.0-1.7) Laboratory Tests Test 09/06/19 04:00 White Blood Count 7.2 x10^3/uL (4.0-11.0) Red Blood Count 5.08 x10^6/uL (4.30-5.70) Hemoglobin 15.2 g/dL (13.0-17.5) Hematocrit 44.4 % (39.0-53.0) Mean Corpuscular Volume 87 fL (79-100) Mean Corpuscular Hemoglobin 30 pg (25-35) Mean Corpuscular Hemoglobin Concent 34 g/dL (31-37) Red Cell Distribution Width 13.4 % (11.5-14.5) Platelet Count 216 x10^3/uL (140-400) Neutrophils (%) (Auto) 52 % (31-73) Lymphocytes (%) (Auto) 33 % (24-48) Monocytes (%) (Auto) 12 % (0-9) Eosinophils (%) (Auto) 3 % (0-3) Basophils (%) (Auto) 1 % (0-3) Neutrophils # (Auto) 3.7 x10^3/uL (1.8-7.7) Lymphocytes # (Auto) 2.3 x10^3/uL (1.0-4.8) Monocytes # (Auto) 0.8 x10^3/uL (0.0-1.1) Eosinophils # (Auto) 0.2 x10^3/uL (0.0-0.7) Basophils # (Auto) 0.1 x10^3/uL (0.0-0.2) Sodium Level 141 mmol/L (136-145) Potassium Level 3.9 mmol/L (3.5-5.1) Chloride Level 103 mmol/L (98-107) Carbon Dioxide Level 31 mmol/L (21-32) Anion Gap 7 (6-14) Blood Urea Nitrogen 14 mg/dL (8-26) Creatinine 1.2 mg/dL (0.7-1.3) Estimated GFR (Cockcroft-Gault) 71.6 BUN/Creatinine Ratio 12 (6-20) Glucose Level 88 mg/dL (70-99) Calcium Level 8.3 mg/dL (8.5-10.1) Total Bilirubin 0.9 mg/dL (0.2-1.0) Aspartate Amino Transf (AST/SGOT) 31 U/L (15-37) Alanine Aminotransferase (ALT/SGPT) 66 U/L (16-63) Alkaline Phosphatase 57 U/L (46-116) Total Protein 7.2 g/dL (6.4-8.2) Albumin 3.7 g/dL (3.4-5.0) Albumin/Globulin Ratio 1.1 (1.0-1.7) Medications Current Medications Aspirin (Children'S Aspirin) 324 mg 1X ONCE PO Last administered on 09/05/19at 02:50; Start 09/05/19 at 03:00; Stop 09/05/19 at 03:01; Status DC Nitroglycerin (Nitrostat) 0.4 mg PRN Q5MIN PRN SL CP RATING > 1/10 Last administered on 09/05/19at 03:08; Start 09/05/19 at 02:45; Stop 09/05/19 at 03:29; Status DC Morphine Sulfate (Morphine Sulfate) 2 mg 1X ONCE IV Last administered on 09/05/19at 03:34; Start 09/05/19 at 03:15; Stop 09/05/19 at 03:16; Status DC Ondansetron HCl (Zofran) 4 mg 1X ONCE IV Last administered on 09/05/19at 03:34; Start 09/05/19 at 03:15; Stop 09/05/19 at 03:16; Status DC Ondansetron HCl (Zofran) 4 mg PRN Q8HRS PRN IV NAUSEA/VOMITING Last administered on 09/05/19at 20:49; Start 09/05/19 at 03:30; Stop 09/06/19 at 03:29; Status DC Morphine Sulfate (Morphine Sulfate) 2 mg PRN Q2HR PRN IV PAIN Last administered on 09/05/19at 20:49; Start 09/05/19 at 03:30; Stop 09/06/19 at 03:29; Status DC Acetaminophen (Tylenol) 650 mg PRN Q4HRS PRN PO FEVER; Start 09/05/19 at 03:30; Stop 09/06/19 at 03:29; Status DC Nitroglycerin (Nitrostat) 0.4 mg PRN Q5MIN PRN SL CHEST PAIN Last administered on 09/05/19at 06:00; Start 09/05/19 at 03:30; Stop 09/06/19 at 03:29; Status DC Influenza Virus Vaccine Quadrival (Afluria Quad 2019-20 (3yr Up) Syringe) 0.5 ml ONCE ONCE VAX IM Last administered on 09/05/19 13:08; Start 09/05/19 at 09:00; Stop 09/05/19 at 09:01; Status DC Flecainide Acetate (Tambocor) 50 mg Q12HR PO Last administered on 09/06/19 08:28; Start 09/05/19 at 13:00 Rivaroxaban (Xarelto) 20 mg DAILYWSUP PO Last administered on 09/05/19 17:25; Start 09/05/19 at 17:00 Info (Anti-Coagulation Monitoring By Pharmacy) 1 each PRN DAILY PRN MC SEE COMMENTS Last administered on 09/06/19 08:34; Start 09/05/19 at 13:00 Zolpidem Tartrate (Ambien) 5 mg PRN QHS PRN PO INSOMNIA, MAY REPEAT IN 1HR Last administered on 09/05/19 23:28; Start 09/05/19 at 19:45 Prochlorperazine Edisylate (Compazine) 5 mg PRN Q6HRS PRN IV NAUSEA/VOMITING Last administered on 09/06/19 08:31; Start 09/05/19 at 22:45 Active Scripts Active Reported Flecainide Acetate 100 Mg Tablet 100 Mg PO BID Xarelto (Rivaroxaban) 20 Mg Tablet 20 Mg PO DAILY Vitals/I & O Vital Sign - Last 24 Hours 09/05/19 09/05/19 09/05/19 09/05/19 11:17 14:45 16:00 16:30 Temp 97.8 99.0 97.8 99.0 Pulse 50 60 Resp 16 18 B/P (MAP) 103/60 (74) 131/66 (87) Pulse Ox 98 97 O2 Delivery Room Air Room Air Room Air Room Air 09/05/19 09/05/19 09/05/19 09/05/19 19:00 20:00 20:49 23:00 Temp 98.6 98.5 98.6 98.5 Pulse 56 64 Resp 20 16 20 B/P (MAP) 139/79 (99) 121/72 (88) Pulse Ox 99 97 99 O2 Delivery Room Air Room Air Room Air Room Air 09/05/19 09/06/19 09/06/19 09/06/19 23:30 03:00 07:23 08:00 Temp 98.2 97.8 98.2 97.8 Pulse 51 52 52 Resp 16 16 B/P (MAP) 118/55 107/64 (78) 120/51 (74) Pulse Ox 100 99 O2 Delivery Room Air Room Air Room Air 09/06/19 08:28 Pulse 61 B/P (MAP) 120/51 Intake and Output 09/05/19 09/05/19 09/06/19 15:00 23:00 07:00 Intake Total 180 ml 580 ml Output Total 300 ml Balance 180 ml 580 ml -300 ml MAGEN DELEON MD Sep 06, 2019 10:21
[2019-09-06 11:00] VITALS: BP 117/64
[2019-09-06] MEDS ORDERED: LIDOCAINE (700MG/PATCH) PATCH. TD SCH (12:00)
[2019-09-06] MEDS ORDERED: ACETAMINOPHEN 500 MG TABLET PO PRN (12:00)
--- NOTE | 2019-09-06 14:25 | PDOC ---
PROGRESS NOTES Subjective Subjective Patient seen and examined Objective Objective Vital Signs Date Time Temp Pulse Resp B/P (MAP) Pulse Ox O2 Delivery O2 Flow Rate FiO2 09/06/19 11:00 98.4 56 117/64 (81) 98 Room Air 98.4 09/06/19 07:23 16 Intake and Output 09/06/19 07:00 Intake Total 760 ml Output Total 300 ml Balance 460 ml Intake Oral 760 ml Output Urine Total 300 ml # Voids 4 Physical Exam Abdomen: Normal bowel sounds Heart: Regular rate General: mild distress Lungs: Clear to auscultation Assessment Assessment Problems Medical Problems: (1) Chest pain Status: Acute 1. Chest pain. The patient feels better today. EKG shows no ischemic changes. Abdomen negative 3. Overall improved. Continue medical treatment. Echo pending. 2. Reported history of paroxysmal atrial fibrillation. Patient remains in a sinus rhythm. We'll continue on monitoring. Continue anticoagulation and antiarrhythmics. 3. History of dizziness and near syncope. Rhythm again appears normal. 4. History of hepatitis C. Comment Review of Relevant I have reviewed the following items derick (where applicable) has been applied. Labs Laboratory Tests Test 09/05/19 02:36 09/05/19 02:51 09/05/19 06:55 09/05/19 09:25 White Blood Count 7.0 x10^3/uL (4.0-11.0) Red Blood Count 5.25 x10^6/uL (4.30-5.70) Hemoglobin 15.7 g/dL (13.0-17.5) Hematocrit 46.0 % (39.0-53.0) Mean Corpuscular Volume 88 fL (79-100) Mean Corpuscular Hemoglobin 30 pg (25-35) Mean Corpuscular Hemoglobin Concent 34 g/dL (31-37) Red Cell Distribution Width 13.6 % (11.5-14.5) Platelet Count 228 x10^3/uL (140-400) Neutrophils (%) (Auto) 39 % (31-73) Lymphocytes (%) (Auto) 48 % (24-48) Monocytes (%) (Auto) 10 % (0-9) Eosinophils (%) (Auto) 3 % (0-3) Basophils (%) (Auto) 1 % (0-3) Neutrophils # (Auto) 2.7 x10^3/uL (1.8-7.7) Lymphocytes # (Auto) 3.3 x10^3/uL (1.0-4.8) Monocytes # (Auto) 0.7 x10^3/uL (0.0-1.1) Eosinophils # (Auto) 0.2 x10^3/uL (0.0-0.7) Basophils # (Auto) 0.0 x10^3/uL (0.0-0.2) Sodium Level 140 mmol/L (136-145) Potassium Level 3.7 mmol/L (3.5-5.1) Chloride Level 104 mmol/L (98-107) Carbon Dioxide Level 29 mmol/L (21-32) Anion Gap 7 (6-14) Blood Urea Nitrogen 13 mg/dL (8-26) Creatinine 1.1 mg/dL (0.7-1.3) Estimated GFR (Cockcroft-Gault) 79.1 BUN/Creatinine Ratio 12 (6-20) Glucose Level 88 mg/dL (70-99) Calcium Level 8.9 mg/dL (8.5-10.1) Magnesium Level 2.1 mg/dL (1.8-2.4) Total Bilirubin 1.0 mg/dL (0.2-1.0) Aspartate Amino Transf (AST/SGOT) 42 U/L (15-37) Alanine Aminotransferase (ALT/SGPT) 75 U/L (16-63) Alkaline Phosphatase 62 U/L (46-116) Troponin I Quantitative < 0.017 ng/mL (0.000-0.055) < 0.017 ng/mL (0.000-0.055) < 0.017 ng/mL (0.000-0.055) YF-Asf-A-Type Natriuretic Peptide 18 pg/mL (0-124) Total Protein 7.5 g/dL (6.4-8.2) Albumin 4.1 g/dL (3.4-5.0) Albumin/Globulin Ratio 1.2 (1.0-1.7) Urine Opiates Screen Neg (NEG) Urine Methadone Screen Neg (NEG) Urine Barbiturates Neg (NEG) Urine Phencyclidine Screen Neg (NEG) Urine Amphetamine/Methamphetamine Neg (NEG) Urine Benzodiazepines Screen Neg (NEG) Urine Cocaine Screen Neg (NEG) Urine Cannabinoids Screen Neg (NEG) Urine Ethyl Alcohol Neg (NEG) Test 09/06/19 04:00 White Blood Count 7.2 x10^3/uL (4.0-11.0) Red Blood Count 5.08 x10^6/uL (4.30-5.70) Hemoglobin 15.2 g/dL (13.0-17.5) Hematocrit 44.4 % (39.0-53.0) Mean Corpuscular Volume 87 fL (79-100) Mean Corpuscular Hemoglobin 30 pg (25-35) Mean Corpuscular Hemoglobin Concent 34 g/dL (31-37) Red Cell Distribution Width 13.4 % (11.5-14.5) Platelet Count 216 x10^3/uL (140-400) Neutrophils (%) (Auto) 52 % (31-73) Lymphocytes (%) (Auto) 33 % (24-48) Monocytes (%) (Auto) 12 % (0-9) Eosinophils (%) (Auto) 3 % (0-3) Basophils (%) (Auto) 1 % (0-3) Neutrophils # (Auto) 3.7 x10^3/uL (1.8-7.7) Lymphocytes # (Auto) 2.3 x10^3/uL (1.0-4.8) Monocytes # (Auto) 0.8 x10^3/uL (0.0-1.1) Eosinophils # (Auto) 0.2 x10^3/uL (0.0-0.7) Basophils # (Auto) 0.1 x10^3/uL (0.0-0.2) Sodium Level 141 mmol/L (136-145) Potassium Level 3.9 mmol/L (3.5-5.1) Chloride Level 103 mmol/L (98-107) Carbon Dioxide Level 31 mmol/L (21-32) Anion Gap 7 (6-14) Blood Urea Nitrogen 14 mg/dL (8-26) Creatinine 1.2 mg/dL (0.7-1.3) Estimated GFR (Cockcroft-Gault) 71.6 BUN/Creatinine Ratio 12 (6-20) Glucose Level 88 mg/dL (70-99) Calcium Level 8.3 mg/dL (8.5-10.1) Total Bilirubin 0.9 mg/dL (0.2-1.0) Aspartate Amino Transf (AST/SGOT) 31 U/L (15-37) Alanine Aminotransferase (ALT/SGPT) 66 U/L (16-63) Alkaline Phosphatase 57 U/L (46-116) Total Protein 7.2 g/dL (6.4-8.2) Albumin 3.7 g/dL (3.4-5.0) Albumin/Globulin Ratio 1.1 (1.0-1.7) Laboratory Tests Test 09/06/19 04:00 White Blood Count 7.2 x10^3/uL (4.0-11.0) Red Blood Count 5.08 x10^6/uL (4.30-5.70) Hemoglobin 15.2 g/dL (13.0-17.5) Hematocrit 44.4 % (39.0-53.0) Mean Corpuscular Volume 87 fL (79-100) Mean Corpuscular Hemoglobin 30 pg (25-35) Mean Corpuscular Hemoglobin Concent 34 g/dL (31-37) Red Cell Distribution Width 13.4 % (11.5-14.5) Platelet Count 216 x10^3/uL (140-400) Neutrophils (%) (Auto) 52 % (31-73) Lymphocytes (%) (Auto) 33 % (24-48) Monocytes (%) (Auto) 12 % (0-9) Eosinophils (%) (Auto) 3 % (0-3) Basophils (%) (Auto) 1 % (0-3) Neutrophils # (Auto) 3.7 x10^3/uL (1.8-7.7) Lymphocytes # (Auto) 2.3 x10^3/uL (1.0-4.8) Monocytes # (Auto) 0.8 x10^3/uL (0.0-1.1) Eosinophils # (Auto) 0.2 x10^3/uL (0.0-0.7) Basophils # (Auto) 0.1 x10^3/uL (0.0-0.2) Sodium Level 141 mmol/L (136-145) Potassium Level 3.9 mmol/L (3.5-5.1) Chloride Level 103 mmol/L (98-107) Carbon Dioxide Level 31 mmol/L (21-32) Anion Gap 7 (6-14) Blood Urea Nitrogen 14 mg/dL (8-26) Creatinine 1.2 mg/dL (0.7-1.3) Estimated GFR (Cockcroft-Gault) 71.6 BUN/Creatinine Ratio 12 (6-20) Glucose Level 88 mg/dL (70-99) Calcium Level 8.3 mg/dL (8.5-10.1) Total Bilirubin 0.9 mg/dL (0.2-1.0) Aspartate Amino Transf (AST/SGOT) 31 U/L (15-37) Alanine Aminotransferase (ALT/SGPT) 66 U/L (16-63) Alkaline Phosphatase 57 U/L (46-116) Total Protein 7.2 g/dL (6.4-8.2) Albumin 3.7 g/dL (3.4-5.0) Albumin/Globulin Ratio 1.1 (1.0-1.7) Medications Current Medications Aspirin (Children'S Aspirin) 324 mg 1X ONCE PO Last administered on 09/05/19at 02:50; Start 09/05/19 at 03:00; Stop 09/05/19 at 03:01; Status DC Nitroglycerin (Nitrostat) 0.4 mg PRN Q5MIN PRN SL CP RATING > 1/10 Last administered on 09/05/19at 03:08; Start 09/05/19 at 02:45; Stop 09/05/19 at 03:29; Status DC Morphine Sulfate (Morphine Sulfate) 2 mg 1X ONCE IV Last administered on 09/05/19 03:34; Start 09/05/19 at 03:15; Stop 09/05/19 at 03:16; Status DC Ondansetron HCl (Zofran) 4 mg 1X ONCE IV Last administered on 09/05/19at 03:34; Start 09/05/19 at 03:15; Stop 09/05/19 at 03:16; Status DC Ondansetron HCl (Zofran) 4 mg PRN Q8HRS PRN IV NAUSEA/VOMITING Last adminis tered on 09/05/19 20:49; Start 09/05/19 at 03:30; Stop 09/06/19 at 03:29; Status DC Morphine Sulfate (Morphine Sulfate) 2 mg PRN Q2HR PRN IV PAIN Last administered on 12/14/19at 20:49; Start 09/05/19 at 03:30; Stop 09/06/19 at 03:29; Status DC Acetaminophen (Tylenol) 650 mg PRN Q4HRS PRN PO FEVER; Start 09/05/19 at 03:30; Stop 09/06/19 at 03:29; Status DC Nitroglycerin (Nitrostat) 0.4 mg PRN Q5MIN PRN SL CHEST PAIN Last administered on 09/05/19 06:00; Start 09/05/19 at 03:30; Stop 09/06/19 at 03:29; Status DC Influenza Virus Vaccine Quadrival (Afluria Quad 2019-20 (3yr Up) Syringe) 0.5 ml ONCE ONCE VAX IM Last administered on 09/05/19 13:08; Start 09/05/19 at 09:00; Stop 09/05/19 at 09:01; Status DC Flecainide Acetate (Tambocor) 50 mg Q12HR PO Last administered on 09/06/19 08:28; Start 09/05/19 at 13:00 Rivaroxaban (Xarelto) 20 mg DAILYWSUP PO Last administered on 09/05/19 17:25; Start 09/05/19 at 17:00 Info (Anti-Coagulation Monitoring By Pharmacy) 1 each PRN DAILY PRN MC SEE COMMENTS Last administered on 09/06/19 08:34; Start 09/05/19 at 13:00 Zolpidem Tartrate (Ambien) 5 mg PRN QHS PRN PO INSOMNIA, MAY REPEAT IN 1HR Last administered on 09/05/19at 23:28; Start 09/05/19 at 19:45 Prochlorperazine Edisylate (Compazine) 5 mg PRN Q6HRS PRN IV NAUSEA/VOMITING Last administered on 09/06/19 08:31; Start 09/05/19 at 22:45 Acetaminophen (Tylenol) 1,000 mg PRN Q6HRS PRN PO PAIN Last administered on 09/06/19at 12:20; Start 09/06/19 at 12:00 Lidocaine (Lidoderm) 1 patch DAILY TD ; Start 09/06/19 at 12:00 Miscellaneous (Lidoderm Patch Removal) 1 ea QHS MC ; Start 09/06/19 at 21:00 Active Scripts Active Reported Flecainide Acetate 100 Mg Tablet 100 Mg PO BID Xarelto (Rivaroxaban) 20 Mg Tablet 20 Mg PO DAILY Vitals/I & O Vital Sign - Last 24 Hours 09/05/19 09/05/19 09/05/19 09/05/19 14:45 16:00 16:30 19:00 Temp 99.0 98.6 99.0 98.6 Pulse 60 56 Resp 18 20 B/P (MAP) 131/66 (87) 139/79 (99) Pulse Ox 97 99 O2 Delivery Room Air Room Air Room Air Room Air 09/05/19 09/05/19 09/05/19 09/05/19 20:00 20:49 23:00 23:30 Temp 98.5 98.5 Pulse 64 51 Resp 16 20 B/P (MAP) 121/72 (88) 118/55 Pulse Ox 97 99 O2 Delivery Room Air Room Air Room Air 09/06/19 09/06/19 09/06/19 09/06/19 03:00 07:23 08:00 08:28 Temp 98.2 97.8 98.2 97.8 Pulse 52 52 61 Resp 16 16 B/P (MAP) 107/64 (78) 120/51 (74) 120/51 Pulse Ox 100 99 O2 Delivery Room Air Room Air Room Air 09/06/19 11:00 Temp 98.4 98.4 Pulse 56 B/P (MAP) 117/64 (81) Pulse Ox 98 O2 Delivery Room Air Intake and Output 09/05/19 09/05/19 09/06/19 15:00 23:00 07:00 Intake Total 180 ml 580 ml Output Total 300 ml Balance 180 ml 580 ml -300 ml ELSY AGUILAR MD Sep 06, 2019 14:25
[2019-09-06 15:00] VITALS: BP 110/72
--- NOTE | 2019-09-06 16:16 | CARD ---
MR#: [id number] Date of Study: 09/06/2019 Ordering Physician: ELSY GONG, Referring Physician: ELSY GONG, Tech: Georgina Guerra EDGAR APPROVED REPORT EXAM: Two-dimensional and M-mode echocardiogram with Doppler and color Doppler. Other Information Quality : GoodHR: 52bpm Rhythm : Bradycardia INDICATION Chest Pain 2D DIMENSIONS IVSd1.0 (0.7-1.1cm)Aortic Root(2D)3.0 (2.0-3.7cm) LVDd5.7 (3.9-5.9cm)LVOT Diameter2.4 (1.8-2.4cm) PWd1.0 (0.7-1.1cm)LA Lguidi50 (18-58mL) LVDs3.9 (2.5-4.0cm)FS (%) 30.9 % SV92.9 mlLVEF(%)57.8 (>50%) Aortic Valve AoV Peak Otoniel.110.6cm/sAoV VTI25.2cm AO Peak GR.4.9mmHgLVOT Peak Otoniel.84.6cm/s AO Mean GR.3mmHgAVA (VMAX)3.51cm2 Mitral Valve MV E Jlerjhgh36.2cm/sMV DECEL HXGA817ys MV A Qgytyngh40.2cm/sE/A Ratio3.7 MV A [id number] TDI Lateral E' P. V19.00cm/sMedial E' P. V12.00cm/s E/Lateral E'3.9E/Medial E'6.2 Tricuspid Valve TR P. Obnckoby426gp/sRAP ELDZEBEY1heIr TR Peak Gr.55abEfAZQA60gaKc Pulmonary Vein S1 Tplcyuem20.2cm/sD2 Otgxjamj43.7cm/s LEFT VENTRICLE The left ventricle is normal size. There is normal left ventricular wall thickness. The left ventricu lar systolic function is normal The ejection fraction is 55-60%. There is normal LV segmental wall mo tion. No left ventricle thrombus noted on this study. There is no ventricular septal defect visualize d. There is no left ventricular aneurysm. There is no mass noted in the left ventricle. RIGHT VENTRICLE The right ventricle is normal size. There is normal right ventricular wall thickness. The right ventr icular systolic function is normal. ATRIA The left atrium size is normal. The right atrium is borderline dilated. The interatrial septum is int act with no evidence for an atrial septal defect or patent foramen ovale as noted on 2-D or Doppler i maging. AORTIC VALVE The aortic valve is normal in structure and function. Doppler and Color Flow revealed no significant aortic regurgitation. There is no significant aortic valvular stenosis. There is no aortic valvular v egetation. MITRAL VALVE The mitral valve is normal in structure and function. There is no evidence of mitral valve prolapse. There is no mitral valve stenosis. Doppler and Color-flow revealed trace mitral regurgitation. TRICUSPID VALVE The tricuspid valve is normal in structure and function. Doppler and Color Flow revealed mild tricusp id regurgitation. Doppler and Color Flow revealed mild tricuspid regurgitation. The PA pressure was e stimated at 31 mmHg. There is no tricuspid valve prolapse or vegetation. There is no tricuspid valve stenosis. PULMONIC VALVE The pulmonary valve is normal in structure and function. Doppler and Color Flow revealed mild pulmoni c valvular regurgitation. There is no pulmonic valvular stenosis. GREAT VESSELS The aortic root is normal in size. The ascending aorta is normal in size. Abnormal pulmonary veins. T he IVC is normal in size and collapses >50% with inspiration. PERICARDIAL EFFUSION There is no pleural effusion. There is no evidence of significant pericardial effusion. Critical Notification Critical Value: No <Conclusion> The left ventricle is normal size. The left ventricular systolic function is normal The ejection fraction is 55-60%. There is no significant aortic valvular stenosis. Doppler and Color-flow revealed trace mitral regurgitation. Doppler and Color Flow revealed mild tricuspid regurgitation. Doppler and Color Flow revealed mild tricuspid regurgitation. The PA pressure was estimated at 31 mmHg. Signed by : Elsy Gong MD Electronically Approved : 09/06/2019 16:15:54
--- NOTE | 2019-09-06 16:50 | PDOC3 ---
Discharge Summary Visit Information Date of Admission: Sep 05, 2019 Date of Discharge: Sep 06, 2019 Admitting Diagnosis: Chest pain Final Diagnosis Problems Medical Problems: (1) Chest pain Status: Acute Brief Hospital Course Allergies Allergies Coded Allergies Type Severity Reaction Last Updated Verified No Known Drug Allergies 08/09/19 No Vital Signs Vital Signs Date Time Temp Pulse Resp B/P (MAP) Pulse Ox O2 Delivery O2 Flow Rate FiO2 09/06/19 15:00 97.9 41 110/72 (85) 98 Room Air 97.9 09/06/19 07:23 16 Lab Results Laboratory Tests Test 09/05/19 02:36 09/05/19 02:51 09/05/19 06:55 09/05/19 09:25 White Blood Count 7.0 x10^3/uL (4.0-11.0) Red Blood Count 5.25 x10^6/uL (4.30-5.70) Hemoglobin 15.7 g/dL (13.0-17.5) Hematocrit 46.0 % (39.0-53.0) Mean Corpuscular Volume 88 fL (79-100) Mean Corpuscular Hemoglobin 30 pg (25-35) Mean Corpuscular Hemoglobin Concent 34 g/dL (31-37) Red Cell Distribution Width 13.6 % (11.5-14.5) Platelet Count 228 x10^3/uL (140-400) Neutrophils (%) (Auto) 39 % (31-73) Lymphocytes (%) (Auto) 48 % (24-48) Monocytes (%) (Auto) 10 % (0-9) Eosinophils (%) (Auto) 3 % (0-3) Basophils (%) (Auto) 1 % (0-3) Neutrophils # (Auto) 2.7 x10^3/uL (1.8-7.7) Lymphocytes # (Auto) 3.3 x10^3/uL (1.0-4.8) Monocytes # (Auto) 0.7 x10^3/uL (0.0-1.1) Eosinophils # (Auto) 0.2 x10^3/uL (0.0-0.7) Basophils # (Auto) 0.0 x10^3/uL (0.0-0.2) Sodium Level 140 mmol/L (136-145) Potassium Level 3.7 mmol/L (3.5-5.1) Chloride Level 104 mmol/L (98-107) Carbon Dioxide Level 29 mmol/L (21-32) Anion Gap 7 (6-14) Blood Urea Nitrogen 13 mg/dL (8-26) Creatinine 1.1 mg/dL (0.7-1.3) Estimated GFR (Cockcroft-Gault) 79.1 BUN/Creatinine Ratio 12 (6-20) Glucose Level 88 mg/dL (70-99) Calcium Level 8.9 mg/dL (8.5-10.1) Magnesium Level 2.1 mg/dL (1.8-2.4) Total Bilirubin 1.0 mg/dL (0.2-1.0) Aspartate Amino Transf (AST/SGOT) 42 U/L (15-37) Alanine Aminotransferase (ALT/SGPT) 75 U/L (16-63) Alkaline Phosphatase 62 U/L (46-116) Troponin I Quantitative < 0.017 ng/mL (0.000-0.055) < 0.017 ng/mL (0.000-0.055) < 0.017 ng/mL (0.000-0.055) GO-Qmg-R-Type Natriuretic Peptide 18 pg/mL (0-124) Total Protein 7.5 g/dL (6.4-8.2) Albumin 4.1 g/dL (3.4-5.0) Albumin/Globulin Ratio 1.2 (1.0-1.7) Urine Opiates Screen Neg (NEG) Urine Methadone Screen Neg (NEG) Urine Barbiturates Neg (NEG) Urine Phencyclidine Screen Neg (NEG) Urine Amphetamine/Methamphetamine Neg (NEG) Urine Benzodiazepines Screen Neg (NEG) Urine Cocaine Screen Neg (NEG) Urine Cannabinoids Screen Neg (NEG) Urine Ethyl Alcohol Neg (NEG) Test 09/06/19 04:00 White Blood Count 7.2 x10^3/uL (4.0-11.0) Red Blood Count 5.08 x10^6/uL (4.30-5.70) Hemoglobin 15.2 g/dL (13.0-17.5) Hematocrit 44.4 % (39.0-53.0) Mean Corpuscular Volume 87 fL (79-100) Mean Corpuscular Hemoglobin 30 pg (25-35) Mean Corpuscular Hemoglobin Concent 34 g/dL (31-37) Red Cell Distribution Width 13.4 % (11.5-14.5) Platelet Count 216 x10^3/uL (140-400) Neutrophils (%) (Auto) 52 % (31-73) Lymphocytes (%) (Auto) 33 % (24-48) Monocytes (%) (Auto) 12 % (0-9) Eosinophils (%) (Auto) 3 % (0-3) Basophils (%) (Auto) 1 % (0-3) Neutrophils # (Auto) 3.7 x10^3/uL (1.8-7.7) Lymphocytes # (Auto) 2.3 x10^3/uL (1.0-4.8) Monocytes # (Auto) 0.8 x10^3/uL (0.0-1.1) Eosinophils # (Auto) 0.2 x10^3/uL (0.0-0.7) Basophils # (Auto) 0.1 x10^3/uL (0.0-0.2) Sodium Level 141 mmol/L (136-145) Potassium Level 3.9 mmol/L (3.5-5.1) Chloride Level 103 mmol/L (98-107) Carbon Dioxide Level 31 mmol/L (21-32) Anion Gap 7 (6-14) Blood Urea Nitrogen 14 mg/dL (8-26) Creatinine 1.2 mg/dL (0.7-1.3) Estimated GFR (Cockcroft-Gault) 71.6 BUN/Creatinine Ratio 12 (6-20) Glucose Level 88 mg/dL (70-99) Calcium Level 8.3 mg/dL (8.5-10.1) Total Bilirubin 0.9 mg/dL (0.2-1.0) Aspartate Amino Transf (AST/SGOT) 31 U/L (15-37) Alanine Aminotransferase (ALT/SGPT) 66 U/L (16-63) Alkaline Phosphatase 57 U/L (46-116) Total Protein 7.2 g/dL (6.4-8.2) Albumin 3.7 g/dL (3.4-5.0) Albumin/Globulin Ratio 1.1 (1.0-1.7) Laboratory Tests Test 09/06/19 04:00 White Blood Count 7.2 x10^3/uL (4.0-11.0) Red Blood Count 5.08 x10^6/uL (4.30-5.70) Hemoglobin 15.2 g/dL (13.0-17.5) Hematocrit 44.4 % (39.0-53.0) Mean Corpuscular Volume 87 fL (79-100) Mean Corpuscular Hemoglobin 30 pg (25-35) Mean Corpuscular Hemoglobin Concent 34 g/dL (31-37) Red Cell Distribution Width 13.4 % (11.5-14.5) Platelet Count 216 x10^3/uL (140-400) Neutrophils (%) (Auto) 52 % (31-73) Lymphocytes (%) (Auto) 33 % (24-48) Monocytes (%) (Auto) 12 % (0-9) Eosinophils (%) (Auto) 3 % (0-3) Basophils (%) (Auto) 1 % (0-3) Neutrophils # (Auto) 3.7 x10^3/uL (1.8-7.7) Lymphocytes # (Auto) 2.3 x10^3/uL (1.0-4.8) Monocytes # (Auto) 0.8 x10^3/uL (0.0-1.1) Eosinophils # (Auto) 0.2 x10^3/uL (0.0-0.7) Basophils # (Auto) 0.1 x10^3/uL (0.0-0.2) Sodium Level 141 mmol/L (136-145) Potassium Level 3.9 mmol/L (3.5-5.1) Chloride Level 103 mmol/L (98-107) Carbon Dioxide Level 31 mmol/L (21-32) Anion Gap 7 (6-14) Blood Urea Nitrogen 14 mg/dL (8-26) Creatinine 1.2 mg/dL (0.7-1.3) Estimated GFR (Cockcroft-Gault) 71.6 BUN/Creatinine Ratio 12 (6-20) Glucose Level 88 mg/dL (70-99) Calcium Level 8.3 mg/dL (8.5-10.1) Total Bilirubin 0.9 mg/dL (0.2-1.0) Aspartate Amino Transf (AST/SGOT) 31 U/L (15-37) Alanine Aminotransferase (ALT/SGPT) 66 U/L (16-63) Alkaline Phosphatase 57 U/L (46-116) Total Protein 7.2 g/dL (6.4-8.2) Albumin 3.7 g/dL (3.4-5.0) Albumin/Globulin Ratio 1.1 (1.0-1.7) Brief Hospital Course Mr Mcclelland is a 28yo M incarcerated currently with PMHx A-Fib, High Cholesterol, Hepatitis C (active) who p/w left-sided chest pain radiation of his left arm into his neck and syncopal episodes. He describes a squeezing sensation, states is pretty constant. Pain started around midnight. He does describe nausea. Patient is well describes history of syncope most recent days ago. He has u nderlying history of atrial fibrillation, hyperlipidemia and hepatitis. Nothing makes his symptoms worse, nothing makes his symptoms better. He has been keeping a journal of his syncopal episodes and he also notes he has not been eating lately, claims it is due to 2nd floor, top bunk placement. EKG is NSR and troponin x2 negative. AST, ALT mildly elevated. CXR clear. He was successfully cardioverted previously, continues on xarelto. He says he still has nausea, worse last night. He states he is trying to get medical leave from alf. I have informed him he has had successful cardioversion, does not seem that he has any other active medical problems than his hepatitis. Plan: d/c to incarceration F/u with cardiology Echo The left ventricle is normal size. The left ventricular systolic function is normal The ejection fraction is 55-60%. There is no significant aortic valvular stenosis. Doppler and Color-flow revealed trace mitral regurgitation. Doppler and Color Flow revealed mild tricuspid regurgitation. Doppler and Color Flow revealed mild tricuspid regurgitation. The PA pressure was estimated at 31 mmHg. Problem list: A/P: Syncopal episode - sinus rhythm, will obtain repeat echo, was seen by neurology with EEG and MRI previously negative Chest pain - atypical. AMI ruled out, but awaiting echo PAFIB s/p CV x2. Most recent 2 months ago. On Xarerlto for stroke prevention- CT head negative for acute stroke. On flecainide for rhythm maintenance. Hypertension; controlled Hyperlipidemia Sinus bradycardia; lowest 38. No pauses noted. H/o drug abuse Hep C Greater than 30 minutes spent on d/c Discharge Information Condition at Discharge: Improved Follow Up: Weeks (1) Disposition/Orders: D/C to Another Facility Scheduled Flecainide Acetate (Flecainide Acetate) 100 Mg Tablet, 100 MG PO BID for fib/flutter, (Reported) Entered as Reported by: LAKSHMI TYLER on 08/09/192242 Last Action: Edited on 09/05/19 1317 by RADHA TENORIO Rivaroxaban (Xarelto) 20 Mg Tablet, 20 MG PO DAILY for afib/flutter, (Reported) Entered as Reported by: LAKSHMI TYLER on 08/09/192242 Last Action: Converted on 09/05/19 1241 by MD PANCHO YEUNG,MAGEN Kaye MD Sep 06, 2019 16:50
[2019-09-06] MEDS: RIVAROXABAN 10 MG TABLET. PO SCH (17:26)
--- NOTE | 2019-09-06 18:39 | NUR ---
Discharge Note: ALONDRA LEE Discharge instructions and discharge home medications reviewed with Other facility Namrata Robertson RN and a copy given. All questions have been answered and understanding verbalized. The following instructions and handouts were given: CP and follow up with Cardiology Discontinued lines and drains: Peripheral IV intact. Patient discharged with Law Enforcement via Wheelchair
--- NOTE | 2019-09-06 19:08 | NUR ---
lidocaine patch removed prior to discharge
[2019-09-06] MEDS ORDERED: PATCH REMOVAL. MC SCH (21:00)
== END 2019-09-06 18:53 ==
LOC: EEVIPCON 02:22 → ER 02:22 → 2 NORTH 03:20
PROVIDERS: ADMIT Internal Medicine; ATTEND Internal Medicine
DX: R55 Syncope and collapse (principal); R07.89 Other chest pain; I10 Essential (primary) hypertension; E78.5 Hyperlipidemia, unspecified; R00.1 Bradycardia, unspecified; I48.91 Unspecified atrial fibrillation; Z86.19 Personal history of other infectious and parasitic diseases; Z98.890 Other specified postprocedural states
CPT/HCPCS: 36415; 71045; 80053; 80307; 83735; 83880; 84484; 85025; 90471; 90686; 93005; 93306; 96374; 96375; 96376; 99284; G0378; J0780; J2270; J2405; G0379

== ENCOUNTER 2020-07-19 13:04 | Inpatient (IN) | payer OTHER ==
[~2020-07-19] VITALS: Ht 190.5 cm; Wt 98.1 kg
[2020-07-19] MEDS ORDERED: IV NORMAL SALINE 1000ML BAG 1,000 ML IV SCH (14:10)
[2020-07-19] MEDS ORDERED: fentaNYL PF VIAL 100 MCG/2 ML VIAL IVP ONE (14:15)
[2020-07-19] MEDS ORDERED: ONDANSETRON PF 4 MG/2 ML VIAL. IVP ONE (14:15)
[2020-07-19] MEDS ORDERED: IV NORMAL SALINE 1000ML BAG 1,000 ML IV ONE (14:15)
[2020-07-19] MEDS ORDERED: VANCOMYCIN PER PHARMACY MC ONE (14:15)
[2020-07-19 14:39] LABS: BASO % 0 % (0-3); EOS % 0 % (0-3); HEMATOCRIT 41.4 % (39.0-53.0); HEMOGLOBIN 14.3 g/dL (13.0-17.5); LYMPH % 6 % (24-48); MEAN CORPUSCULAR HEMOGLOBIN 30 pg (25-35); MEAN CORPUSCULAR HGB CONC 35 g/dL (31-37); MEAN CORPUSCULAR VOLUME 86 fL (79-100); MONO # 1.4 x10^3/uL (0.0-1.1); MONO % 9 % (0-9); NEUT # 13.2 x10^3/uL (1.8-7.7); NEUT % 84 % (31-73); PLATELET COUNT 202 x10^3/uL (140-400); RED BLOOD COUNT 4.82 x10^6/uL (4.30-5.70); WHITE BLOOD COUNT 15.6 x10^3/uL (4.0-11.0)
--- NOTE | 2020-07-19 14:43 | PHYS DOC ---
Past Medical History Past Medical History: A-Fib, High Cholesterol, Hepatitis, Other Additional Past Medical Histor: HEP C, CHRONIC BACK PAIN (ANDRES HARE PROFESSIONAL SKATEBOARDER) Past Surgical History: Other Additional Past Surgical Histo: UNKNOWN SURGICAL HISTORY (ANANYAANDRES PROFESSIONAL SKATEBOARDER) Smoking Status: Current Every Day Smoker Alcohol Use: None Drug Use: None (ANANYAANDRES PROFESSIONAL SKATEBOARDER) General Adult EDM: Chief Complaint: ABSCESS HPI: HPI: Patient is a 29 year old male who presents with the last 3 days he has had left arm abscess that is now turned into cellulitis and swelling. He states on his dorsal upper left arm just below the elbow that look like a "infected hair follicle or a pimple". He states he began squeezing on it in the doctor at the [facility] Dr. Burks try to drain it but no purulent fluid only blood came out of it. He states that he was placed on Bactrim of which she is only taking 3 doses of. States he awoke this morning and the arm is very swollen and the redness now extends down to the mid left forearm all the way up to the mid upper forearm. The left arm is 2+ more swollen than the right arm. No drainage is seen. Patient states he has had body aches, nausea and vomiting low mid abdominal pain since last night. He does have a low-grade temperature. He states he took 600 ibuprofen this morning. Patient has a history of hepatitis C, high cholesterol, hepatitis, A. fib, smoker. Rates his pain a 10 out of 10 states a burning aching pain. (ANDRES HARE PROFESSIONAL SKATEBOARDER) Review of Systems: Review of Systems: Constitutional: Denies fever or chills. [] Eyes: Denies change in visual acuity. [] HENT: Denies nasal congestion or sore throat. [] Respiratory: Denies cough or shortness of breath. [] Cardiovascular: Denies chest pain or edema. [] GI: + abdominal pain, +nausea, +vomiting, denies bloody stools or diarrhea. [] : Denies dysuria. [] Musculoskeletal: Denies back pain or joint pain. +Left arm pain. [] Integument: Denies rash. +Left arm cellulitis [] Neurologic: Denies headache, focal weakness or sensory changes. [] Endocrine: Denies polyuria or polydipsia. [] Lymphatic: Denies swollen glands. [] Psychiatric: Denies depression or anxiety. [] (ANDRES HARE APRN) Heart Score: Risk Factors: Risk Factors: DM, Current or recent (<one month) smoker, HTN, HLP, family history of CAD, obesity. Risk Scores: Score 0 - 3: 2.5% MACE over next 6 weeks - Discharge Home Score 4 - 6: 20.3% MACE over next 6 weeks - Admit for Clinical Observation Score 7 - 10: 72.7% MACE over next 6 weeks - Early Invasive Strategies (ANDRES HARE APRN) Current Medications: Current Medications Medications (Trade) Dose Ordered Sig/Kwaku Start Time Stop Time Status Last Admin Dose Admin Fentanyl Citrate (Fentanyl 2ml Vial) 50 mcg 1X ONCE 07/19/20 14:15 07/19/20 14:19 DC Ondansetron HCl (Zofran) 4 mg 1X ONCE 07/19/20 14:15 07/19/20 14:19 DC Sodium Chloride 1,000 ml @ 1,000 mls/hr 1X ONCE 07/19/20 14:15 07/19/20 15:14 Vancomycin HCl (Vanco Per Pharmacy) 1 each 1X ONCE 07/19/20 14:15 07/19/20 14:22 DC Vancomycin HCl 2 gm/Sodium Chloride 500 ml @ 250 mls/hr ONCE ONCE 07/19/20 15:00 07/19/20 16:59 (ANDRES HARE PROFESSIONAL SKATEBOARDER) Allergies: Allergies: Allergies Coded Allergies Type Severity Reaction Last Updated Verified No Known Drug Allergies 08/09/19 No (ANDRES HARE APRN) Physical Exam: PE: Constitutional: Well developed, well nourished, no acute distress, non-toxic appearance. [] HENT: Normocephalic, atraumatic, bilateral external ears normal, oropharynx moist, no oral exudates, nose normal. [] Eyes: PERRLA, EOMI, conjunctiva normal, no discharge. [] Neck: Normal range of motion, no tenderness, supple, no stridor. [] Cardiovascular:Heart rate regular rhythm, no murmur [] Lungs & Thorax: Bilateral breath sounds clear to auscultation [] Abdomen: Bowel sounds normal, soft, no tenderness, no masses, no pulsatile masses. [] Skin: Warm, dry, left upper arm and lower arm erythema cellulitis, no rash. [] Back: No tenderness, no CVA tenderness. [] Extremities: No tenderness, no cyanosis, no clubbing, ROM intact, left arm 2+ edema. [] Neurologic: Alert and oriented X 3, normal motor function, normal sensory function, no focal deficits noted. [] Psychologic: Affect normal, judgement normal, mood normal. [] (ANDRES HARE APRN) EKG: EKG: [] (ANDRES HARE APRN) Radiology/Procedures: Radiology/Procedures: [] Impression: [facility] [address] [place] [address] IMAGING REPORT Signed PATIENT: DINESH LEE ACCOUNT: [id number] : 1990 LOCATION: ER AGE: 29 SEX: M EXAM STATUS: REG ER ORD. PHYSICIAN: ANDRES HARE APRN REASON: CELLULITIS, EVAL FOR ABSCESS, LEFT UPPER EXTREMITY PROCEDURE: EXT NON VASC LEFT Ultrasound left upper extremity soft tissue nonvascular HISTORY: Cellulitis near elbow. Sonographic examination of the abnormal area in the left elbow was performed and multiple static images were obtained. Study was performed in order to exclude a possible abscess. FINDINGS: There is moderate soft tissue edema. There is no focal fluid collection. IMPRESSION: Soft tissue edema could be secondary to cellulitis. No abscess. Electronically signed by: Chika Razo III, MD (07/19/2020 4:21 PM) [facility] DICTATED and SIGNED BY: CHIKA RAZO III, MD DATE: 07/19/201620 (ANDRES HARE APRN) Course & Med Decision Making: Course & Med Decision Making Pertinent Labs and Imaging studies reviewed. (See chart for details) See HPI. Alert and oriented x4. Ambulatory with steady gait. Speaks in full complete sentences. Radial pulses strong present. Denies any numbness or tingling. Cap refills less than 2 seconds. Patient denies headache, dizziness, back pain, dysuria symptoms, diarrhea, chest pain, shortness of air, cough, focal weakness. Abdomen soft and nontender. Patient has full function of the extremity with no weaknesses. There is no severe joint tenderness. Make a full fist and wiggle all of his fingers. Patient is given 2 L of normal saline and vancomycin through his IV. Lactic acid is 1.9. He is running a fever of 102. He is given Tylenol. Patient admitted to the hospital for cellulitis. [] (AILYN HAREA M PROFESSIONAL SKATEBOARDER) Dragon Disclaimer: Dragjose rafael Disclaimer: This electronic medical record was generated, in whole or in part, using a voice recognition dictation system. (AILYN HAREA M PROFESSIONAL SKATEBOARDER) Date and Time of Reassessment Date: Jul 19, 2020 Time: 15:26 (AILYN HAREA M PROFESSIONAL SKATEBOARDER) Fluid Challenge Is the fluid challenge complet: No IBW Target Volume Used: No BMI > 30: No (MIKKI HARENNA M PROFESSIONAL SKATEBOARDER) Vital Signs Vital Signs: Vital Signs Date Time Temp Pulse Resp B/P (MAP) Pulse Ox O2 Delivery O2 Flow Rate FiO2 07/19/20 15:04 20 100 Room Air 07/19/20 14:33 99.1 96 141/75 (97) 99.1 Temperature Source: Oral (AILYN HAREA M PROFESSIONAL SKATEBOARDER) Temperature Source: Oral (MARY ANNBRIGIDO R DO) Respirations Respiratory Effort: Normal Respiratory Pattern: Normal (DEBRAUS,ANDRES M PROFESSIONAL SKATEBOARDER) Cardiovascular Pulse Rhythm: Regular Heart: Nml rate, reg. rhythm (ANANYAANDRES M PROFESSIONAL SKATEBOARDER) Lung Sounds Breath Sounds: Clear (BAFMIKKI CASHNNA M PROFESSIONAL SKATEBOARDER) Capillary Refil Capillary Refill: Rt Hand > 3 seconds (BAFUSANDRES M PROFESSIONAL SKATEBOARDER) Peripheral Pulse Pulse Location: Radial Pulse Strength: Normal (2+) Pulse Assessment Method: Monitor (ANANYAANDRES M PROFESSIONAL SKATEBOARDER) Pulse Assessment Method: Monitor (REESE,BRIGIDO R DO) Integumentary Skin: Warm Skin Moisture: Dry Skin Turgor: Normal Skin Color: warm Fingernail Color: WNL (BAFUS,ANDRES M PROFESSIONAL SKATEBOARDER) Skin Moisture: Dry (REESE,BRIGIDO R DO) Departure Departure Impression: Primary Impression: Cellulitis Qualified Codes: L03.114 - Cellulitis of left upper limb Disposition: ADMITTED INPT THIS HOSP Admitting Physician: KENTRELL SpainANDRES HARE APRN) Condition: STABLE Referrals: NO PCP (PCP) Scripts No Active Prescriptions or Reported Meds Attending Signature Attending Signature I have reviewed the PA/BODY DIE MAKER's note and plan of care. I was available for consultation as needed during the patient's visit in the emergency department. I agree with the clinical impression, plan, and disposition. (BRIGIDO REESE DO) ANDRES HARE APRN Jul 19, 2020 14:43 BRIGIDO REESE DO Jul 19, 2020 18:44
[2020-07-19 14:54] LABS: CALCIUM 8.9 mg/dL (8.5-10.1); CREATININE 1.2 mg/dL (0.7-1.3); GFR 71.1
[2020-07-19 14:59] LABS: % BANDS 3 % (0-9); % BASOS 1 % (0-3); % LYMPHS 9 % (24-48); % MONOS 13 % (0-10); % SEGS 74 % (35-66); PLT ESTIMATE ADEQUATE (ADEQUATE)
[2020-07-19 15:00] LABS: ALBUMIN 3.6 g/dL (3.4-5.0); C-REACTIVE PROTEIN 29.2 mg/L (0-3.3); TOTAL BILIRUBIN 1.2 mg/dL (0.2-1.0); TOTAL PROTEIN 7.1 g/dL (6.4-8.2)
[2020-07-19] MEDS ORDERED: VANCOMYCIN 2 GM in IV NORMAL SALINE 500ML BAG 500 ML IV ONE (15:00)
[2020-07-19] MEDS ORDERED: ACETAMINOPHEN 500 MG TABLET PO ONE (15:15)
[2020-07-19] MEDS ORDERED: ONDANSETRON PF 4 MG/2 ML VIAL. IV PRN (15:30)
[2020-07-19] MEDS ORDERED: ACETAMINOPHEN 325 MG TABLET. PO PRN (15:30)
[2020-07-19] MEDS: IV NORMAL SALINE 1000ML BAG 1,000 ML IV SCH ×2 (15:30→23:12)
[2020-07-19 15:42] LABS: BILIRUBIN,URINE NEGATIVE (NEG); CLARITY,URINE CLEAR; COLOR,URINE YELLOW; NITRITE,URINE NEGATIVE (NEG); PH,URINE 8.5 (<5.0-8.0); PROTEIN,URINE 30 mg/dL (NEG-TRACE)
[2020-07-19 15:52] LABS: BACTERIA,URINE FEW /HPF (0-FEW); RBC,URINE 0 /HPF (0-2); WBC,URINE 0 /HPF (0-4)
[2020-07-19] MEDS ORDERED: PIPERACILLIN/TAZOBACTAM 3.375 GM in IV NORMAL SALINE 50ML 50 ML IV ONE (16:00)
--- NOTE | 2020-07-19 16:24 | RAD ---
Ultrasound left upper extremity soft tissue nonvascular HISTORY: Cellulitis near elbow. Sonographic examination of the abnormal area in the left elbow was performed and multiple static images were obtained. Study was performed in order to exclude a possible abscess. FINDINGS: There is moderate soft tissue edema. There is no focal fluid collection. IMPRESSION: Soft tissue edema could be secondary to cellulitis. No abscess. Electronically signed by: Moises Duvall III, MD (07/19/2020 4:21 PM) [facility]
[2020-07-19] MEDS: fentaNYL PF VIAL 100 MCG/2 ML VIAL IV PRN ×3 (18:23→23:22)
[2020-07-19 23:00] VITALS: BP 123/69
--- NOTE | 2020-07-19 23:08 | NUR ---
The patient, DINESH LEE, 29 y/o, M admitted by ARI WYATT III, DO, was given written information regarding hospital policies, unit procedures and contact persons. Valuables were checked and left with him.
[2020-07-20] MEDS: fentaNYL PF VIAL 100 MCG/2 ML VIAL IV PRN (01:50)
[2020-07-20] MEDS ORDERED: FLEC100T PO (01:57)
[2020-07-20] MEDS ORDERED: DILT120C99 PO (01:57)
[2020-07-20 03:00] VITALS: BP 126/70
[2020-07-20] MEDS: fentaNYL PF VIAL 100 MCG/2 ML VIAL IVP PRN ×9 (03:30→22:50)
[2020-07-20] MEDS: IV NORMAL SALINE 1000ML BAG 1,000 ML IV SCH ×2 (05:35→20:46)
[2020-07-20 07:00] VITALS: BP 119/68
[2020-07-20] MEDS ORDERED: VANCOMYCIN 2 GM in IV NORMAL SALINE 500ML BAG 500 ML IV ONE (09:15)
--- NOTE | 2020-07-20 09:22 | CONS ---
DATE OF CONSULTATION: 07/20/2020 REFERRING PHYSICIAN: Pradip Christiansen DO REASON FOR CONSULTATION: Left upper extremity cellulitis. HISTORY OF PRESENT ILLNESS: A 29-year-old male presented to the ER from [facility] with left upper extremity swelling, redness, pain which started on the forearm and started spreading towards the region going up his elbow up to the axillary area. He began squeezing on it at [place]. Attempts were made to drain it, but no purulent fluid came out. The patient was started on Bactrim, which he only took 3 doses. He woke up yesterday morning with worsening swelling, redness. The patient also had generalized body ache, low-grade fever and chills. Upon presentation, his white count was 15,000. Lactate of 1.9. UA negative. The patient received a dose of vancomycin and Zosyn. Blood cultures are drawn. Ultrasound of the upper extremity showed a moderate soft tissue edema, no focal fluid collection. ID consultation is requested for antibiotic management. Today, the patient states the swelling remains the same. Denies any headache, nausea, vomiting, diarrhea, abdominal pain, symptoms, chest pain. The patient has had previous infection in the right lower extremity a couple of years ago. PAST MEDICAL HISTORY: Hepatitis C, AFib, hyperlipidemia, chronic back pain. SOCIAL HISTORY: Smoker, history of drug abuse in the past, none recently. No alcohol use, currently at [facility]. CURRENT MEDICATIONS: One dose of IV vancomycin and Zosyn. Other medications reviewed in medication list. PHYSICAL EXAMINATION: VITAL SIGNS: Temperature 99.9, pulse 85, respiratory rate 18, blood pressure 119/68 and oxygen saturation 99% on room air. GENERAL: Alert, oriented x 3 male in no acute distress, well-developed, well-nourished. HEENT: Normocephalic, atraumatic. Anicteric. No thrush. NECK: Supple, no JVD. LUNGS: Clear bilaterally. No wheezing. HEART: S1, S2. No gallops or murmurs. ABDOMEN: Soft, nontender, nondistended, no rebound, no guarding. EXTREMITIES: Left upper extremity edema, swelling, redness, warmth going up just beyond the left wrist up to the axillary area. No joint swelling noted at the wrist, elbow or shoulder. There is a small makeda on the posterior aspect of the forearm with purulent drainage. DERMATOLOGIC: Multiple tattoos. NEUROLOGIC: Alert and oriented x 3, grossly nonfocal. PSYCHIATRIC: Cooperative, appropriate mood and affect. BACK: Reveals normal curvature. No CVA tenderness. LABORATORY DATA: WBC 15.6, hemoglobin 14.3, hematocrit 41.4, platelets 202. Sodium 137, potassium 4.0, chloride 100, bicarb 25, BUN 13, creatinine 1.2, lactate 1.2, total bilirubin 1.2. C-reactive protein 29.2. UA negative. IMAGING: Ultrasound of the left upper extremity as above. IMPRESSION: 1. Left upper extremity severe cellulitis, possible abscess. Ultrasound negative for fluid collection. 2. Leukocytosis. 3. Febrile illness. 4. History of chronic hepatitis C. 5. History of smoking. RECOMMENDATIONS: 1. Continue IV vancomycin and Zosyn. 2. Monitor renal functions closely. 3. Vancomycin dose per pharmacy. 4. Follow up blood culture. 5. The patient may need surgical evaluation.Monitor closely 6. Elevate left upper extremity. 7. Continue supportive care. Thank you for allowing me to participate in this patient's care. If you have any questions, do not hesitate to contact me. CATHERINE CALDERON MD DR: LATASHA/tex JOB#: [id number] / [id number] CHLOE
[2020-07-20] MEDS: FLECAINIDE ACETATE 50 MG TABLET. PO SCH ×2 (10:08→20:00)
[2020-07-20 11:00] VITALS: BP 122/70
[2020-07-20] MEDS: VANCOMYCIN PER PHARMACY MC PRN (11:30)
--- NOTE | 2020-07-20 11:34 | NUR ---
Pharmacy Vancomycin Dosing Note S:Consulted to monitor and dose vancomycin started 07/19/20. O:DINESH LEE is a 29 year old M with Cellulitis . Height: 6 feet, 3 inches Weight: 100.1 kg [place] Body Weight: 84.50 Adjusted Body Weight: 90.74 Dosing Weight: Actual Other Antibiotics: ZOSYN LABS: Last BUN: Last Creatinine: 1.2 Creatinine Clearance: 125 mL/min Last WBC: 15.6 Last Procalcitonin: Tmax (past 24 hours): 99.9 Microbiology: I/O: Drug Levels: Last level: on at Last dose given 07/20/20 at 1100 Vancomycin Dosing: Loading Dose: 2000 mg x1 Dosing Weight: Actual Target Trough: 10-20 A: Based on: WEIGHT AND RENAL FUNCTION, VANCOMYCIN 2GM IV BOLUS GIVEN, P: 1. Begin Vancomycin 1250 mg IV q8h 2. Follow up Trough level on 07/21/20 at 1030 3. Pharmacy will continue to monitor, follow and adjust therapy as needed. R[facility], 07/20/20 1231
--- NOTE | 2020-07-20 12:57 | PDOC1 ---
History and Physical Date of Admission Date of Admission DATE: 07/20/20 TIME: 12:52 Identification/Chief Complaint Chief Complaint Left arm pain Source Source: Patient History of Present Illness History of Present Illness Mr Mcclelland is a 29 yo M w/ PMHx Hep C, afib, HLD, chronic pain who is incarcerated at [facility] who was sent to ED with c/o left upper extremity swelling, redness, pain which was initially on his lateral left forearm and spread to his axilla. He did try to express discharge from a punctate wound site on lateral arm, but no purulence was expressed. He was started on trimethoprim/sulfamethoxazole x 3 doses and when he was noted with progression of rash with lymphagitic spread and worsening redness, tenderness and generalized rigors and chills he was sent to ED. Non vascular US revealed soft tissue edema, no abscess. On admit noted with WBC 15, CRP 29.2, Cr 1.2. Started on empiric vancomycin and Zosyn. Afebrile. He tells me the swelling and redness are worse from admission. He has been previously admitted for this and we have discussed this. No SOB or CP. No N/V/D Past Medical History Cardiovascular: AFIB, HTN, Syncope, Hyperlipidemia Pulmonary: No pertinent hx CENTRAL NERVOUS SYSTEM: Migraine Heme/Onc: Other Hepatobiliary: Hep A/B/C Psych: Anxiety, Depression, Other Renal/: Acute renal failure Endocrine: No pertinent hx Past Surgical History Past Surgical History: Hernia Repair Family History Family History: Hypertension, Other Social History Smoke: 1 pack per day ALCOHOL: none Drugs: None Current Problem List Problem List Problems Medical Problems: (1) Cellulitis Status: Acute Current Medications Current Medications Current Medications Vancomycin HCl (Vanco Per Pharmacy) 1 each 1X ONCE MC ; Start 07/19/20 at 14:15; Stop 07/19/20 at 14:22; Status DC Sodium Chloride 1,000 ml @ 1,000 mls/hr Q1H IV Last administered on 07/19/20at 14:10; Start 07/19/20 at 14:10; Stop 07/19/20 at 15:09; Status DC Fentanyl Citrate (Fentanyl 2ml Vial) 50 mcg 1X ONCE IVP Last administered on 07/19/20at 15:04; Start 07/19/20 at 14:15; Stop 07/19/20 at 14:19; Status DC Ondansetron HCl (Zofran) 4 mg 1X ONCE IVP Last administered on 07/19/20at 15:03; Start 07/19/20 at 14:15; Stop 07/19/20 at 14:19; Status DC Sodium Chloride 1,000 ml @ 1,000 mls/hr 1X ONCE IV Last administered on 07/19/20at 14:15; Start 07/19/20 at 14:15; Stop 07/19/20 at 15:14; Status DC Vancomycin HCl 2 gm/Sodium Chloride 500 ml @ 250 mls/hr ONCE ONCE IV Last administered on 07/19/20at 15:04; Start 07/19/20 at 15:00; Stop 07/19/20 at 16:59; Status DC Acetaminophen (Tylenol) 1,000 mg 1X ONCE PO Last administered on 07/19/20at 15:45; Start 07/19/20 at 15:15; Stop 07/19/20 at 15:17; Status DC Ondansetron HCl (Zofran) 4 mg PRN Q8HRS PRN IV NAUSEA/VOMITING; Start 07/19/20 at 15:30; Stop 07/20/20 at 15:29 Fentanyl Citrate (Fentanyl 2ml Vial) 50 mcg PRN Q1HR PRN IV PAIN Last administered on 07/20/20at 01:50; Start 07/19/20 at 15:30; Stop 07/20/20 at 02:48; Status DC Sodium Chloride 1,000 ml @ 125 mls/hr Q8H IV Last administered on 07/20/20at 05:35; Start 07/19/20 at 15:30; Stop 07/20/20 at 15:29 Acetaminophen (Tylenol) 650 mg PRN Q4HRS PRN PO FEVER > 100.3'F; Start 07/19/20 at 15:30; Stop 07/20/20 at 15:29 Piperacillin Sod/ Tazobactam Sod 3.375 gm/Sodium Chloride 50 ml @ 100 mls/hr 1X ONCE IV Last administered on 07/19/20at 16:00; Start 07/19/20 at 16:00; Stop 07/19/20 at 16:29; Status DC Diltiazem HCl (Cardizem 24hr ) 120 mg DAILY PO Last administered on 07/20/20at 10:08; Start 07/20/20 at 09:00 Flecainide Acetate (Tambocor) 100 mg Q12HR PO Last administered on 07/20/20at 10:08; Start 07/20/20 at 09:00 Fentanyl Citrate (Fentanyl 2ml Vial) 100 mcg PRN Q2HR PRN IVP SEVERE PAIN 7-10 Last administered on 07/20/20at 12:25; Start 07/20/20 at 03:00 Vancomycin HCl (Vanco Per Pharmacy) 1 each PRN DAILY PRN MC SEE COMMENTS Last administered on 07/20/20at 11:30; Start 07/20/20 at 09:00 Piperacillin Sod/ Tazobactam Sod 3.375 gm/Sodium Chloride 50 ml @ 100 mls/hr Q6HRS IV ; Start 07/20/20 at 10:00 Vancomycin HCl 2 gm/Sodium Chloride 500 ml @ 250 mls/hr 1X ONCE IV Last administered on 07/20/20at 10:56; Start 07/20/20 at 09:15; Stop 07/20/20 at 11:14; Status DC Vancomycin HCl 1.25 gm/Sodium Chloride 250 ml @ 167 mls/hr Q8H IV ; Start 07/20/20 at 19:00 Vancomycin HCl (Vancomycin Trough Level) 1 each 1X ONCE MC ; Start 07/21/20 at 10:30; Stop 07/21/20 at 10:31 Active Scripts Active Reported Flecainide Acetate 100 Mg Tablet 1 Tab PO BID Diltiazem 24HR Cd (Diltiazem Hcl) 120 Mg Cap.er.24h 1 Cap PO DAILY 30 Days Allergies Allergies: Coded Allergies: No Known Drug Allergies (Unverified , 08/09/19) ROS General: YES: Chills, Night Sweats, Fatigue, Malaise; No: Appetite, Other PSYCHOLOGICAL ROS: No: Anxiety, Behavioral Disorder, Concentration difficultie, Decreased libido, Depression, Disorientation, Hallucinations, Hostility, Irritablity, Memory difficulties, Mood Swings, Obsessive thoughts, Physical abuse, Sexual abuse, Sleep disturbances, Suicidal ideation, Other Eyes: No Blurry vision, No Decreased vision, No Double vision, No Dry eyes, No Excessive tearing, No Eye Pain, No Itchy Eyes, No Loss of vision, No Photophobia, No Scotomata, No Uses contacts, No Uses glasses, No Other HEENT: No: Heacaches, Visual Changes, Hearing change, Nasal congestion, Nasal discharge, Oral lesions, Sinus pain, Sore Throat, Epistaxis, Sneezing, Snoring, Tinnitus, Vertigo, Vocal changes, Other ALLERGY AND IMMUNOLOGY: No: Hives, Insect Bite Sensitivity, Itchy/Watery Eyes, Nasal Congestion, Post Nasal Drip, Seasonal Allergies, Other Hematological and Lymphatic: No: Bleeding Problems, Blood Clots, Blood Transfusions, Brusing, Night Sweats, Pallor, Swollen Lymph Nodes, Other ENDOCRINE: No: Breast Changes, Galactorrhea, Hair Pattern Changes, Hot Flashes, Malaise/lethargy, Mood Swings, Palpitations, Polydipsia/polyuria, Skin Changes, Temperature Intolerance, Unexpected Weight Changes, Other Breast: No New/Changing Breast Lumps, No Nipple changes, No Nipple discharge, No Other Respiratory: No: Cough, Hemoptysis, Orthopnea, Pleuritic Pain, Shortness of breath, SOB with excertion, Sputum Changes, Stridor, Tachypnea, Wheezing, Other Cardiovascular: No Chest Pain, No Palpitations, No Orthopnea, No Paroxysmal Noc. Dyspnea, No Edema, No Lt Headedness, No Other Gastrointestinal: No Nausea, No Vomiting, No Abdominal Pain, No Diarrhea, No Constipation, No Melena, No Hematochezia, No Other Genitourinary: No Dysuria, No Frequency, No Incontinence, No Hematuria, No Retention, No Discharge, No Urgency, No Pain, No Flank Pain, No Other, No , No , No , No , No , No , No Musculoskeletal: No Gait Disturbance, No Joint Pain, No Joint Stiffness, No Joint Swelling, No Muscle Pain, No Muscular Weakness, No Pain In:, No Swelling In:, No Other Neurological: No Behavorial Changes, No Bowel/Bladder ControlChng, No Confusion, No Dizziness, No Gait Disturbance, No Headaches, No Impaired Coord/balance, No Memory Loss, No Numbness/Tingling, No Seizures, No Speech Prob lems, No Tremors, No Visual Changes, No Weakness, No Other Skin: Yes Rash; No Dry Skin, No Eczema, No Hair Changes, No Lumps, No Mole Changes, No Mottling, No Nail Changes, No Pruritus, No Skin Lesion Changes, No Other, No Acne Physical Exam General: Alert, Oriented X3, Cooperative, mild distress HEENT: Atraumatic, PERRLA, EOMI, Mucous membr. moist/pink Lungs: Clear to auscultation, Normal air movement Heart: S1S2, RRR, no thrills, no rubs, no gallops, no murmurs Abdomen: Normal bowel sounds, Soft, No tenderness, No hepatosplenomegaly, No masses Rectal Exam: not examined Extremities: No clubbing, No cyanosis, No edema, Normal pulses Skin: Other (Left upper extremity edema, swelling, redness, warmth going up just beyond the left wrist up to the axillary area. No joint swelling noted at the wrist, elbow or shoulder. There is a small makeda on the posterior aspect of the forearm with purulent drainage. Multiple tattoos.) Neuro: Normal gait, Normal speech, Strength at 5/5 X4 ext, Normal tone, Sensation intact, Cranial nerves 3-12 NL, Reflexes 2+ Psych/Mental Status: Mental status NL, Mood NL Vitals Vitals Vital Signs Date Time Temp Pulse Resp B/P (MAP) Pulse Ox O2 Delivery O2 Flow Rate FiO2 07/20/20 11:00 99.0 82 18 122/70 (87) 100 Room Air 99.0 Labs Labs Laboratory Tests Test 07/19/20 14:18 07/19/20 15:30 White Blood Count 15.6 x10^3/uL (4.0-11.0) Red Blood Count 4.82 x10^6/uL (4.30-5.70) Hemoglobin 14.3 g/dL (13.0-17.5) Hematocrit 41.4 % (39.0-53.0) Mean Corpuscular Volume 86 fL (79-100) Mean Corpuscular Hemoglobin 30 pg (25-35) Mean Corpuscular Hemoglobin Concent 35 g/dL (31-37) Red Cell Distribution Width 13.0 % (11.5-14.5) Platelet Count 202 x10^3/uL (140-400) Neutrophils (%) (Auto) 84 % (31-73) Lymphocytes (%) (Auto) 6 % (24-48) Monocytes (%) (Auto) 9 % (0-9) Eosinophils (%) (Auto) 0 % (0-3) Basophils (%) (Auto) 0 % (0-3) Neutrophils # (Auto) 13.2 x10^3/uL (1.8-7.7) Lymphocytes # (Auto) 1.0 x10^3/uL (1.0-4.8) Monocytes # (Auto) 1.4 x10^3/uL (0.0-1.1) Eosinophils # (Auto) 0.0 x10^3/uL (0.0-0.7) Basophils # (Auto) 0.0 x10^3/uL (0.0-0.2) Segmented Neutrophils % 74 % (35-66) Band Neutrophils % 3 % (0-9) Lymphocytes % 9 % (24-48) Monocytes % 13 % (0-10) Basophils % 1 % (0-3) Platelet Estimate Adequate (ADEQUATE) Sodium Level 137 mmol/L (136-145) Potassium Level 4.0 mmol/L (3.5-5.1) Chloride Level 100 mmol/L (98-107) Carbon Dioxide Level 25 mmol/L (21-32) Anion Gap 12 (6-14) Blood Urea Nitrogen 13 mg/dL (8-26) Creatinine 1.2 mg/dL (0.7-1.3) Estimated GFR (Cockcroft-Gault) 71.1 BUN/Creatinine Ratio 11 (6-20) Glucose Level 103 mg/dL (70-99) Lactic Acid Level 1.9 mmol/L (0.4-2.0) Calcium Level 8.9 mg/dL (8.5-10.1) Total Bilirubin 1.2 mg/dL (0.2-1.0) Aspartate Amino Transf (AST/SGOT) 29 U/L (15-37) Alanine Aminotransferase (ALT/SGPT) 58 U/L (16-63) Alkaline Phosphatase 46 U/L (46-116) C-Reactive Protein, Quantitative 29.2 mg/L (0-3.3) Total Protein 7.1 g/dL (6.4-8.2) Albumin 3.6 g/dL (3.4-5.0) Albumin/Globulin Ratio 1.0 (1.0-1.7) Urine Collection Type Unknown Urine Color Yellow Urine Clarity Clear Urine pH 8.5 (<5.0-8.0) Urine Specific [place] 1.025 (1.000-1.030) Urine Protein 30 mg/dL (NEG-TRACE) Urine Glucose (UA) Negative mg/dL (NEG) Urine Ketones (Stick) >=80 mg/dL (NEG) Urine Blood Negative (NEG) Urine Nitrite Negative (NEG) Urine Bilirubin Negative (NEG) Urine Urobilinogen Dipstick 1.0 mg/dL (0.2 mg/dL) Urine Leukocyte Esterase Negative (NEG) Urine RBC 0 /HPF (0-2) Urine WBC 0 /HPF (0-4) Urine Squamous Epithelial Cells Few /LPF Urine Bacteria Few /HPF (0-FEW) Laboratory Tests Test 07/19/20 14:18 07/19/20 15:30 White Blood Count 15.6 x10^3/uL (4.0-11.0) Red Blood Count 4.82 x10^6/uL (4.30-5.70) Hemoglobin 14.3 g/dL (13.0-17.5) Hematocrit 41.4 % (39.0-53.0) Mean Corpuscular Volume 86 fL (79-100) Mean Corpuscular Hemoglobin 30 pg (25-35) Mean Corpuscular Hemoglobin Concent 35 g/dL (31-37) Red Cell Distribution Width 13.0 % (11.5-14.5) Platelet Count 202 x10^3/uL (140-400) Neutrophils (%) (Auto) 84 % (31-73) Lymphocytes (%) (Auto) 6 % (24-48) Monocytes (%) (Auto) 9 % (0-9) Eosinophils (%) (Auto) 0 % (0-3) Basophils (%) (Auto) 0 % (0-3) Neutrophils # (Auto) 13.2 x10^3/uL (1.8-7.7) Lymphocytes # (Auto) 1.0 x10^3/uL (1.0-4.8) Monocytes # (Auto) 1.4 x10^3/uL (0.0-1.1) Eosinophils # (Auto) 0.0 x10^3/uL (0.0-0.7) Basophils # (Auto) 0.0 x10^3/uL (0.0-0.2) Segmented Neutrophils % 74 % (35-66) Band Neutrophils % 3 % (0-9) Lymphocytes % 9 % (24-48) Monocytes % 13 % (0-10) Basophils % 1 % (0-3) Platelet Estimate Adequate (ADEQUATE) Sodium Level 137 mmol/L (136-145) Potassium Level 4.0 mmol/L (3.5-5.1) Chloride Level 100 mmol/L (98-107) Carbon Dioxide Level 25 mmol/L (21-32) Anion Gap 12 (6-14) Blood Urea Nitrogen 13 mg/dL (8-26) Creatinine 1.2 mg/dL (0.7-1.3) Estimated GFR (Cockcroft-Gault) 71.1 BUN/Creatinine Ratio 11 (6-20) Glucose Level 103 mg/dL (70-99) Lactic Acid Level 1.9 mmol/L (0.4-2.0) Calcium Level 8.9 mg/dL (8.5-10.1) Total Bilirubin 1.2 mg/dL (0.2-1.0) Aspartate Amino Transf (AST/SGOT) 29 U/L (15-37) Alanine Aminotransferase (ALT/SGPT) 58 U/L (16-63) Alkaline Phosphatase 46 U/L (46-116) C-Reactive Protein, Quantitative 29.2 mg/L (0-3.3) Total Protein 7.1 g/dL (6.4-8.2) Albumin 3.6 g/dL (3.4-5.0) Albumin/Globulin Ratio 1.0 (1.0-1.7) Urine Collection Type Unknown Urine Color Yellow Urine Clarity Clear Urine pH 8.5 (<5.0-8.0) Urine Specific [place] 1.025 (1.000-1.030) Urine Protein 30 mg/dL (NEG-TRACE) Urine Glucose (UA) Negative mg/dL (NEG) Urine Ketones (Stick) >=80 mg/dL (NEG) Urine Blood Negative (NEG) Urine Nitrite Negative (NEG) Urine Bilirubin Negative (NEG) Urine Urobilinogen Dipstick 1.0 mg/dL (0.2 mg/dL) Urine Leukocyte Esterase Negative (NEG) Urine RBC 0 /HPF (0-2) Urine WBC 0 /HPF (0-4) Urine Squamous Epithelial Cells Few /LPF Urine Bacteria Few /HPF (0-FEW) Images Images LUE US: Sonographic examination of the abnormal area in the left elbow was performed and multiple static images were obtained. Study was performed in order to exclude a possible abscess. FINDINGS: There is moderate soft tissue edema. There is no focal fluid collection. IMPRESSION: Soft tissue edema could be secondary to cellulitis. No abscess. VTE Prophylaxis Ordered VTE Prophylaxis Devices: No VTE Pharmacological Prophylaxi: Yes Assessment/Plan Assessment/Plan A/P: Left upper extremity cellulitis - with abscess that is already drained a bit. No obvious left elbow involvement. lymphangitic spread to left axilla. Cont antibiotics. ID consulted Sepsis - due to cellulitis, will monitor. No respiratory symptoms. He is regularly tested for COVID at snf, negative most recently Chronic hepatitis C - unknown viral titer Smoker - counseled on cessation H/o substance abuse - he denies using while incarcerated. Accurate history is difficult with corrections officers present Severe anxiety with multiple suicidal attempts - reportedly occurred at [facility] over a year ago Paroxysmal AFIB - sinus. previously taken off xarelto due to suicide attempt. will cont on diltiazem and prn flecainide FEN - General diet PPX - lovenox FULL CODE Dispo - inpatient for above. May need surgical consultation if no improvement. Justifications for Admission Other Justification MAGEN DELEON MD Jul 20, 2020 12:57
[2020-07-20] MEDS: PIPERACILLIN/TAZOBACTAM 3.375 GM in IV NORMAL SALINE 50ML 50 ML IV SCH ×2 (14:44→17:49)
[2020-07-20 15:00] VITALS: BP 129/69
[2020-07-20 19:00] VITALS: BP 119/77
[2020-07-20] MEDS: VANCOMYCIN 1.25 GM in IV NORMAL SALINE 250ML 250 ML IV SCH (19:22)
[2020-07-20] MEDS: LACTOBACILLUS RHAMNOSUS GG 1 CAPSULE. PO SCH (20:00)
[2020-07-20] MEDS ORDERED: ACETAMINOPHEN 325 MG TABLET. PO PRN (20:45)
[2020-07-20] MEDS ORDERED: IV NORMAL SALINE 1000ML BAG 1,000 ML IV ONE (20:45)
[2020-07-20] MEDS: HYDROcodone/APAP 5/325MG 1 TAB TABLET PO PRN (22:17)
[2020-07-20 23:00] VITALS: BP 128/68
[2020-07-21] MEDS: diphenhydrAMINE HCL 25 MG CAPSULE PO PRN ×4 (00:06→21:40)
[2020-07-21] MEDS: PIPERACILLIN/TAZOBACTAM 3.375 GM in IV NORMAL SALINE 50ML 50 ML IV SCH ×5 (00:07→23:55)
[2020-07-21] MEDS ORDERED: diphenhydrAMINE HCL 25 MG CAPSULE PO ONE (00:45)
[2020-07-21] MEDS: VANCOMYCIN 1.25 GM in IV NORMAL SALINE 250ML 250 ML IV SCH (02:41)
[2020-07-21] MEDS: HYDROcodone/APAP 5/325MG 1 TAB TABLET PO PRN ×5 (02:41→23:11)
[2020-07-21 03:00] VITALS: BP 93/60
[2020-07-21 07:00] VITALS: BP 136/73
[2020-07-21] MEDS: IV NORMAL SALINE 1000ML BAG 1,000 ML IV SCH ×2 (07:23→18:07)
[2020-07-21] MEDS: fentaNYL PF VIAL 100 MCG/2 ML VIAL IVP PRN ×6 (08:18→23:56)
[2020-07-21] MEDS: LACTOBACILLUS RHAMNOSUS GG 1 CAPSULE. PO SCH ×2 (08:18→19:55)
[2020-07-21] MEDS: ENOXAPARIN 40 MG/0.4 ML SYRINGE. SQ SCH (08:20)
[2020-07-21] MEDS: FLECAINIDE ACETATE 50 MG TABLET. PO SCH ×2 (08:21→19:56)
--- NOTE | 2020-07-21 09:14 | PDOC ---
[employer] PROGRESS NOTE Date of Service DOS: DATE: 07/21/20 TIME: 09:13 Chief Complaint Chief Complaint A/P: Left upper extremity cellulitis - with abscess that is already drained a bit. No obvious left elbow involvement. lymphangitic spread to left axilla. Cont antibiotics. ID consulted Sepsis - due to cellulitis, will monitor. No respiratory symptoms. He is regularly tested for COVID at care home, negative most recently Chronic hepatitis C - unknown viral titer Smoker - counseled on cessation H/o substance abuse - he denies using while incarcerated. Accurate history is difficult with corrections officers present Severe anxiety with multiple suicidal attempts - reportedly occurred at [facility] over a year ago Paroxysmal AFIB - sinus. previously taken off xarelto due to suicide attempt. will cont on diltiazem and prn flecainide FEN - General diet PPX - lovenox FULL CODE Dispo - inpatient for above. May need surgical consultation if no improvement. History of Present Illness History of Present Illness Mr Mcclelland is a 29 yo M w/ PMHx Hep C, afib, HLD, chronic pain who is incarcerated at [facility] who was sent to ED with c/o left upper ext remity swelling, redness, pain which was initially on his lateral left forearm and spread to his axilla. He did try to express discharge from a punctate wound site on lateral arm, but no purulence was expressed. He was started on trimethoprim/sulfamethoxazole x 3 doses and when he was noted with progression of rash with lymphagitic spread and worsening redness, tenderness and gener alized rigors and chills he was sent to ED. Non vascular US revealed soft tissue edema, no abscess. On admit noted with WBC 15, CRP 29.2, Cr 1.2. Started on empiric vancomycin and Zosyn. 07/20: Afebrile. He tells me the swelling and redness are worse from admission. He has been previously admitted for this and we have discussed this. No SOB or CP. No N/V/D. Febrile to 101.2 F overnight. Swelling and redness same has had some drainage through the punctate area on his left lateral forearm. Orthopedic surgery consulted for further recommendations given swelling around the left elbow joint. No shortness of breath or chest pain no nausea vomiting or diarrhea. Vitals/I&O Vitals/I&O: Vital Signs Date Time Temp Pulse Resp B/P (MAP) Pulse Ox O2 Delivery O2 Flow Rate FiO2 07/21/20 08:21 Room Air 07/21/20 08:21 73 136/73 07/21/20 07:22 20 97 07/21/20 07:00 98.2 98.2 I & O 07/20/20 07/20/20 07/21/20 15:00 23:00 07:00 Intake Total 600 ml 300 ml 600 ml Output Total 600 ml 1300 ml Balance 600 ml -300 ml -700 ml Physical Exam General: Alert, Oriented X3, Cooperative, mild distress Lungs: Clear Abdomen: Normal bowel sounds, Soft, No tenderness, No hepatosplenomegaly, No masses Extremities: No clubbing, No cyanosis, No edema, Normal pulses Skin: Other (Left upper extremity edema, swelling, redness, warmth going up just beyond the left wrist up to the axillary area. No joint swelling noted at the wrist, elbow or shoulder. There is a small makeda on the posterior aspect of the forearm with purulent drainage. Multiple tattoos.) Labs Labs: Laboratory Tests Test 07/20/20 20:40 Lactic Acid Level 0.9 mmol/L (0.4-2.0) Assessment and Plan Assessmemt and Plan Problems Medical Problems: (1) Cellulitis Status: Acute Comment Review of Relevant I have reviewed the following items derick (where applicable) has been applied. Medications: Current Medications Medications (Trade) Dose Ordered Sig/Kwaku Route PRN Reason Start Time Stop Time Status Last Admin Dose Admin Piperacillin Sod/ Tazobactam Sod 3.375 gm/Sodium Chloride 50 ml @ 100 mls/hr Q6HRS IV 07/20/20 10:00 07/21/20 06:21 Vancomycin HCl 2 gm/Sodium Chloride 500 ml @ 250 mls/hr 1X ONCE IV 07/20/20 09:15 07/20/20 11:14 DC 07/20/20 10:56 Vancomycin HCl 1.25 gm/Sodium Chloride 250 ml @ 167 mls/hr Q8H IV 07/20/20 19:00 07/21/20 02:41 Lactobacillus Rhamnosus (Culturelle) 1 cap BID PO 07/20/20 21:00 07/21/20 08:18 Sodium Chloride 1,000 ml @ 1,000 mls/hr 1X ONCE IV 07/20/20 20:45 07/20/20 21:44 DC 07/20/20 20:46 Sodium Chloride 1,000 ml @ 125 mls/hr Q8H IV 07/20/20 20:45 07/21/20 07:23 Acetaminophen/ Hydrocodone Bitart (Lortab 5/325) 1 tab PRN Q4HRS PRN PO PAIN 07/20/20 20:45 07/21/20 07:22 Acetaminophen (Tylenol) 650 mg PRN Q6HRS PRN PO MILD PAIN / TEMP > 100.3'F 07/20/20 20:45 07/20/20 21:00 Fentanyl Citrate (Fentanyl 2ml Vial) 100 mcg PRN Q4HRS PRN IVP SEVERE PAIN 7-10 07/20/20 23:45 07/21/20 08:18 Diphenhydramine HCl (Benadryl) 25 mg PRN QHS PRN PO INSOMNIA 07/20/20 23:45 07/21/20 00:41 Enoxaparin Sodium (Lovenox 40mg Syringe) 40 mg Q24H SQ 07/21/20 09:00 07/21/20 08:20 Justifications for Admission Other Justification MAGEN DELEON MD Jul 21, 2020 09:14
--- NOTE | 2020-07-21 10:00 | PDOC ---
Infectious Disease Note Subjective Subjective c/o left arm pain, swelling and drainage Tmax 101.2 ROS ROS as mentioned above OW neg Vital Sign Vital Signs Vital Signs Date Time Temp Pulse Resp B/P (MAP) Pulse Ox O2 Delivery O2 Flow Rate FiO2 07/21/20 08:21 Room Air 07/21/20 08:21 73 136/73 07/21/20 07:22 20 97 07/21/20 07:00 98.2 98.2 Physical Exam PHYSICAL EXAM GENERAL: Propped up in bed, watching TV, in no distress HEENT: Anicteric. No thrush. NECK: Supple, no JVD. LUNGS: Clear bilaterally. No wheezing. HEART: S1, S2. No gallops or murmurs. ABDOMEN: Soft, nontender, nondistended EXTREMITIES: Left upper extremity edema, swelling, redness, warmth going up just beyond the left wrist up to the axillary area. No joint swelling noted at the wrist, elbow or shoulder. Localized + fluctuance, small abscess with purulent drainage. culture collected DERMATOLOGIC: Multiple tattoos. No signs of rash NEUROLOGIC: Alert and oriented x 3, grossly nonfocal. PSYCHIATRIC: Cooperative, appropriate mood and affect. PIV Labs Lab Laboratory Tests Test 07/20/20 20:40 Lactic Acid Level 0.9 mmol/L (0.4-2.0) Micro Microbiology 07/19/20 Blood Culture - Preliminary, Resulted NO GROWTH AFTER 1 DAY Objective Assessment 1. Left upper extremity severe cellulitis, abscess. - Ultrasound negative for fluid collection. 2. Leukocytosis. 3. Febrile illness. 4. History of chronic hepatitis C. 5. History of smoking. Plan Plan of Care Culture of drainage sent Consult ortho for I and D Continue IV vancomycin and Zosyn. Monitor renal functions closely. Vancomycin dose per pharmacy. Follow up blood culture. Local wound care Pain management per primary Attending Co-Sign The patient was seen and interviewed as well as examined at the bedside. The chart was reviewed. The case was discussed with PATROLLER. Agree with the plan of care. IVANNA OMNTANA APRN Jul 21, 2020 10:00 CATHERINE CALDERON MD Jul 21, 2020 10:30
[2020-07-21 10:55] LABS: BASO % 0 % (0-3); EOS # 0.1 x10^3/uL (0.0-0.7); EOS % 1 % (0-3); HEMOGLOBIN 12.8 g/dL (13.0-17.5); LYMPH # 1.8 x10^3/uL (1.0-4.8); LYMPH % 14 % (24-48); MEAN CORPUSCULAR HEMOGLOBIN 30 pg (25-35); MEAN CORPUSCULAR HGB CONC 35 g/dL (31-37); MEAN CORPUSCULAR VOLUME 86 fL (79-100); MONO # 1.3 x10^3/uL (0.0-1.1); MONO % 10 % (0-9); NEUT # 9.2 x10^3/uL (1.8-7.7); NEUT % 74 % (31-73); PLATELET COUNT 194 x10^3/uL (140-400); RED BLOOD COUNT 4.29 x10^6/uL (4.30-5.70); RED CELL DISTRIBUTION WIDTH 12.8 % (11.5-14.5); WHITE BLOOD COUNT 12.4 x10^3/uL (4.0-11.0)
[2020-07-21 11:00] VITALS: BP 124/68
[2020-07-21 11:08] LABS: CALCIUM 8.1 mg/dL (8.5-10.1); CREATININE 0.9 mg/dL (0.7-1.3); GFR 99.1; POTASSIUM 3.6 mmol/L (3.5-5.1)
[2020-07-21 11:13] LABS: VANC TR 9.1 mcg/mL (10.0-20.0)
[2020-07-21] MEDS: VANCOMYCIN PER PHARMACY MC PRN (12:04)
--- NOTE | 2020-07-21 12:15 | NUR ---
Pharmacy Vancomycin Dosing Note S:Consulted to monitor and dose vancomycin started 07/19/20. O:DINESH LEE is a 29 year old M with Cellulitis . Height: 6 feet, 3 inches Weight: 99.1 kg [place] Body Weight: 84.50 Adjusted Body Weight: 90.34 Dosing Weight: Actual Other Antibiotics: ZOSYN LABS: Last BUN: 10 Last Creatinine: 0.9 Creatinine Clearance: >120 mL/min Last WBC: 12.4 Last Procalcitonin: - Tmax (past 24 hours): 101.2 Microbiology: 07/21 BCX NGTD I/O: 1500/1900 Drug Levels: Last Trough level: 9.1 on 07/21/20 at 1030 Last dose given 07/20/20 at 1100 Vancomycin Dosing: Loading Dose: 2000 mg x1 Dosing Weight: Actual Target Trough: 10-20 A: Based on: SUBTHERAPEUTIC TROUGH, P: 1. INITIATE NEW REGIMEN OF Vancomycin 1500 mg IV q8h 2. Follow up Trough level on 07/22/20 at 1130 3. Pharmacy will continue to monitor, follow and adjust therapy as needed. ATTILA EPSTEIN [facility], 07/21/20 [id number]
[2020-07-21] MEDS: VANCOMYCIN 1.5 GM in IV NORMAL SALINE 500ML BAG 500 ML IV SCH ×2 (12:43→19:55)
--- NOTE | 2020-07-21 13:53 | RAD ---
Examination: CT left upper extremity without contrast HISTORY: History of infection, abscess COMPARISON: None available TECHNIQUE: Axial CT images of the left upper extremity was performed without contrast. Coronal and sagittal reformats are performed Exposure: One or more of the following individualized dose reduction techniques were utilized for this examination: 1. Automated exposure control 2. Adjustment of the mA and/or kV according to patient size 3. Use of iterative reconstruction technique FINDINGS: The alignment of the elbow joint grossly appears unremarkable. There is moderate fat stranding identified in the subcutaneous region of the distal upper arm and proximal forearm likely diffuse cellulitis or edema without focal fluid collection to suggest an abscess on this noncontrasted exam. IMPRESSION: Diffuse fat stranding identified in the subcutaneous region of the distal upper arm and proximal forearm likely diffuse cellulitis or edema. Electronically signed by: Bayron Vyas MD (07/21/2020 1:50 PM) [id number]
[2020-07-21 15:00] VITALS: BP 122/78
[2020-07-21 19:00] VITALS: BP 129/83
--- NOTE | 2020-07-21 19:06 | PDOC2 ---
CONSULT Date of Consult Date of Consult DATE: 07/21/20 TIME: 19:03 Reason for Consult Reason for Consult: LUE swelling Referring Physician Referring Physician: Suman Identification/Chief Complaint Chief Complaint Left arm pain History of Present Illness Reason for Visit: Patient is a pleasant 29 yo male who [facility] and noticed pain redness and swelling develop in his proximal left arm over the past couple days. He was treated with PO abx at the facility, worsened and was sent here. He reports that his arm is feeling a little bit better. He has noticed s houlder pain develop as well. Past Medical History Cardiovascular: AFIB, HTN, Syncope, Hyperlipidemia Pulmonary: No pertinent hx CENTRAL NERVOUS SYSTEM: Migraine Heme/Onc: Other Hepatobiliary: Hep A/B/C Psych: Anxiety, Depression, Other Renal/: Acute renal failure Endocrine: No pertinent hx Past Surgical History Past Surgical History: Hernia Repair Family History Family History: Hypertension, Other Social History 1 pack per day ALCOHOL: none Drugs: None Lives: Alone Current Problem List Problem List Problems Medical Problems: (1) Cellulitis Status: Acute Current Medications Current Medications Current Medications Vancomycin HCl (Vanco Per Pharmacy) 1 each 1X ONCE MC ; Start 07/19/20 at 14:15; Stop 07/19/20 at 14:22; Status DC Sodium Chloride 1,000 ml @ 1,000 mls/hr Q1H IV Last administered on 07/19/20at 14:10; Start 07/19/20 at 14:10; Stop 07/19/20 at 15:09; Status DC Fentanyl Citrate (Fentanyl 2ml Vial) 50 mcg 1X ONCE IVP Last administered on 07/19/20at 15:04; Start 07/19/20 at 14:15; Stop 07/19/20 at 14:19; Status DC Ondansetron HCl (Zofran) 4 mg 1X ONCE IVP Last administered on 07/19/20at 15:03; Start 07/19/20 at 14:15; Stop 07/19/20 at 14:19; Status DC Sodium Chloride 1,000 ml @ 1,000 mls/hr 1X ONCE IV Last administered on 07/19/20at 14:15; Start 07/19/20 at 14:15; Stop 07/19/20 at 15:14; Status DC Vancomycin HCl 2 gm/Sodium Chloride 500 ml @ 250 mls/hr ONCE ONCE IV Last administered on 07/19/20at 15:04; Start 07/19/20 at 15:00; Stop 07/19/20 at 16:59; Status DC Acetaminophen (Tylenol) 1,000 mg 1X ONCE PO Last administered on 07/19/20at 15:45; Start 07/19/20 at 15:15; Stop 07/19/20 at 15:17; Status DC Ondansetron HCl (Zofran) 4 mg PRN Q8HRS PRN IV NAUSEA/VOMITING; Start 07/19/20 at 15:30; Stop 07/20/20 at 15:29; Status DC Fentanyl Citrate (Fentanyl 2ml Vial) 50 mcg PRN Q1HR PRN IV PAIN Last administered on 07/20/20at 01:50; Start 07/19/20 at 15:30; Stop 07/20/20 at 02:48; Status DC Sodium Chloride 1,000 ml @ 125 mls/hr Q8H IV Last administered on 07/20/20at 05:35; Start 07/19/20 at 15:30; Stop 07/20/20 at 15:29; Status DC Acetaminophen (Tylenol) 650 mg PRN Q4HRS PRN PO FEVER > 100.3'F; Start 1 at 15:30; Stop 07/20/20 at 15:29; Status DC Piperacillin Sod/ Tazobactam Sod 3.375 gm/Sodium Chloride 50 ml @ 100 mls/hr 1X ONCE IV Last administered on 07/19/20at 16:00; Start 07/19/20 at 16:00; Stop 07/19/20 at 16:29; Status DC Diltiazem HCl (Cardizem 24hr Cd) 120 mg DAILY PO Last administered on 07/21/20at 08:19; Start 07/20/20 at 09:00 Flecainide Acetate (Tambocor) 100 mg Q12HR PO Last administered on 07/21/20at 08:21; Start 07/20/20 at 09:00 Fentanyl Citrate (Fentanyl 2ml Vial) 100 mcg PRN Q2HR PRN IVP SEVERE PAIN 7-10 Last administered on 07/20/20at 22:50; Start 07/20/20 at 03:00; Stop 07/20/20 at 23:47; Status DC Vancomycin HCl (Vanco Per Pharmacy) 1 each PRN DAILY PRN MC SEE COMMENTS Last administered on 07/21/20at 12:04; Start 07/20/20 at 09:00 Piperacillin Sod/ Tazobactam Sod 3.375 gm/Sodium Chloride 50 ml @ 100 mls/hr Q6HRS IV Last administered on 07/21/20at 18:07; Start 07/20/20 at 10:00 Vancomycin HCl 2 gm/Sodium Chloride 500 ml @ 250 mls/hr 1X ONCE IV Last administered on 07/20/20at 10:56; Start 07/20/20 at 09:15; Stop 07/20/20 at 11:14; Status DC Vancomycin HCl 1.25 gm/Sodium Chloride 250 ml @ 167 mls/hr Q8H IV Last administered on 07/21/20at 02:41; Start 07/20/20 at 19:00; Stop 07/21/20 at 11:47; Status DC Vancomycin HCl (Vancomycin Trough Level) 1 each 1X ONCE MC Last administered on 07/21/20at 10:30; Start 07/21/20 at 10:30; Stop 07/21/20 at 10:31; Status DC Lactobacillus Rhamnosus (Culturelle) 1 cap BID PO Last administered on 07/21/20at 08:18; Start 07/20/20 at 21:00 Sodium Chloride 1,000 ml @ 1,000 mls/hr 1X ONCE IV Last administered on 07/20/20at 20:46; Start 07/20/20 at 20:45; Stop 07/20/20 at 21:44; Status DC Sodium Chloride 1,000 ml @ 125 mls/hr Q8H IV Last administered on 07/21/20at 18:07; Start 07/20/20 at 20:45 Acetaminophen/ Hydrocodone Bitart (Lortab 5/325) 1 tab PRN Q4HRS PRN PO PAIN Last administered on 07/21/20at 16:34; Start 07/20/20 at 20:45 Acetaminophen (Tylenol) 650 mg PRN Q6HRS PRN PO MILD PAIN / TEMP > 100.3'F Last administered on 07/20/20at 21:00; Start 07/20/20 at 20:45 Fentanyl Citrate (Fentanyl 2ml Vial) 100 mcg PRN Q4HRS PRN IVP SEVERE PAIN 7-10 Last administered on 07/21/20at 16:34; Start 07/20/20 at 23:45; Stop 07/21/20 at 17:58; Status DC Diphenhydramine HCl (Benadryl) 25 mg PRN QHS PRN PO INSOMNIA Last administered on 07/21/20at 00:41; Start 07/20/20 at 23:45 Enoxaparin Sodium (Lovenox 40mg Syringe) 40 mg Q24H SQ Last administered on 07/21/20at 08:20; Start 07/21/20 at 09:00 Diphenhydramine HCl (Benadryl) 25 mg 1X ONCE PO ; Start 07/21/20 at 00:45; Stop 07/21/20 at 00:46; Status DC Vancomycin HCl 1.5 gm/Sodium Chloride 500 ml @ 250 mls/hr Q8H IV Last administered on 07/21/20at 12:43; Start 07/21/20 at 12:00 Ondansetron HCl (Zofran) 4 mg PRN Q6HRS PRN IV NAUSEA/VOMITING; Start 07/22/20 at 07:00; Stop 07/23/20 at 06:59 Fentanyl Citrate (Fentanyl 2ml Vial) 25 mcg PRN Q5MIN PRN IV MILD PAIN 1-3; Start 07/22/20 at 07:00; Stop 07/23/20 at 06:59 Fentanyl Citrate (Fentanyl 2ml Vial) 50 mcg PRN Q5MIN PRN IV MODERATE TO SEVERE PAIN; Start 07/22/20 at 07:00; Stop 07/23/20 at 06:59 Morphine Sulfate (Morphine Sulfate) 1 mg PRN Q10MIN PRN IV SEVERE PAIN 7-10; Start 07/22/20 at 07:00; Stop 07/23/20 at 06:59 Ringer's Solution 1,000 ml @ 30 mls/hr Q24H IV ; Start 07/22/20 at 07:00; Stop 07/22/20 at 18:59 Hydromorphone HCl (Dilaudid) 0.5 mg PRN Q10MIN PRN IV SEV PAIN, Second choice; Start 07/22/20 at 07:00; Stop 07/23/20 at 06:59 Prochlorperazine Edisylate (Compazine) 5 mg PACU PRN PRN IV NAUSEA, MRX1; Start 07/22/20 at 07:00; Stop 07/23/20 at 06:59 Fentanyl Citrate (Fentanyl 2ml Vial) 100 mcg PRN Q2HR PRN IVP SEVERE PAIN 7-10 Last administered on 07/21/20at 18:42; Start 07/21/20 at 18:00 Active Scripts Active Reported Flecainide Acetate 100 Mg Tablet 1 Tab PO BID Diltiazem 24HR Cd (Diltiazem Hcl) 120 Mg Cap.er.24h 1 Cap PO DAILY 30 Days Allergies Allergies: Coded Allergies: No Known Drug Allergies (Unverified , 08/09/19) ROS General: YES: Fatigue PSYCHOLOGICAL ROS: No: Anxiety, Behavioral Disorder, Concentration difficultie, Decreased libido, Depression, Disorientation, Hallucinations, Hostility, Irritablity, Memory difficulties, Mood Swings, Obsessive thoughts, Physical abuse, Sexual abuse, Sleep disturbances, Suicidal ideation, Other Eyes: No Blurry vision, No Decreased vision, No Double vision, No Dry eyes, No Excessive tearing, No Eye Pain, No Itchy Eyes, No Loss of vision, No Photophobia, No Scotomata, No Uses contacts, No Uses glasses, No Other HEENT: No: Heacaches, Visual Changes, Hearing change, Nasal congestion, Nasal discharge, Oral lesions, Sinus pain, Sore Throat, Epistaxis, Sneezing, Snoring, Tinnitus, Vertigo, Vocal changes, Other ALLERGY AND IMMUNOLOGY: No: Hives, Insect Bite Sensitivity, Itchy/Watery Eyes, Nasal Congestion, Post Nasal Drip, Seasonal Allergies, Other Hematological and Lymphatic: No: Bleeding Problems, Blood Clots, Blood Transfusions, Brusing, Night Sweats, Pallor, Swollen Lymph Nodes, Other ENDOCRINE: No: Breast Changes, Galactorrhea, Hair Pattern Changes, Hot Flashes, Malaise/lethargy, Mood Swings, Palpitations, Polydipsia/polyuria, Skin Changes, Temperature Intolerance, Unexpected Weight Changes, Other Respiratory: No: Cough, Hemoptysis, Orthopnea, Pleuritic Pain, Shortness of breath, SOB with excertion, Sputum Changes, Stridor, Tachypnea, Wheezing, Other Cardiovascular: No Chest Pain, No Palpitations, No Orthopnea, No Paroxysmal Noc. Dyspnea, No Edema, No Lt Headedness, No Other Gastrointestinal: No Nausea, No Vomiting, No Abdominal Pain, No Diarrhea, No Constipation, No Melena, No Hematochezia, No Other Genitourinary: No Dysuria, No Frequency, No Incontinence, No Hematuria, No Retention, No Discharge, No Urgency, No Pain, No Flank Pain, No Other, No , No , No , No , No , No , No Musculoskeletal: No Gait Disturbance, No Joint Pain, No Joint Stiffness, No Joint Swelling, No Muscle Pain, No Muscular Weakness, No Pain In:, No Swelling In:, No Other Neurological: No Behavorial Changes, No Bowel/Bladder ControlChng, No Confusion, No Dizziness, No Gait Disturbance, No Headaches, No Impaired Coord/balance, No Memory Loss, No Numbness/Tingling, No Seizures, No Speech Problems, No Tremors, No Visual Changes, No Weakness, No Other Skin: Yes Rash Physical Exam General: Alert, Oriented X3 HEENT: Atraumatic, EOMI Lungs: Other (Respirations are unlabored with symmetric chest rise) Heart: Regular rate Abdomen: Soft, No tenderness Extremities: No edema (No edema in right upper extremity, bilateral lower extremities), Normal pulses Skin: Other (Please see musculoskeletal exam) Neuro: Normal speech, Strength at 5/5 X4 ext, Sensation intact Psych/Mental Status: Mental status NL, Mood NL MUSCULOSKELETAL: Other (Examination of his left upper extremity reveals about a dime size superficial open wound at his posterior proximal forearm. He has a lot of edema and cellulitis throughout his proximal forearm and distal arm. No fluctuance appreciable throughout his left upper extremity.) Vitals VITALS Vital Signs Date Time Temp Pulse Resp B/P (MAP) Pulse Ox O2 Delivery O2 Flow Rate FiO2 07/21/20 18:42 Room Air 07/21/20 17:49 99 07/21/20 15:00 98.2 72 18 122/78 (93) 98.2 Labs Labs Laboratory Tests Test 07/20/20 20:40 07/21/20 10:35 Lactic Acid Level 0.9 mmol/L (0.4-2.0) White Blood Count 12.4 x10^3/uL (4.0-11.0) Red Blood Count 4.29 x10^6/uL (4.30-5.70) Hemoglobin 12.8 g/dL (13.0-17.5) Hematocrit 37.0 % (39.0-53.0) Mean Corpuscular Volume 86 fL (79-100) Mean Corpuscular Hemoglobin 30 pg (25-35) Mean Corpuscular Hemoglobin Concent 35 g/dL (31-37) Red Cell Distribution Width 12.8 % (11.5-14.5) Platelet Count 194 x10^3/uL (140-400) Neutrophils (%) (Auto) 74 % (31-73) Lymphocytes (%) (Auto) 14 % (24-48) Monocytes (%) (Auto) 10 % (0-9) Eosinophils (%) (Auto) 1 % (0-3) Basophils (%) (Auto) 0 % (0-3) Neutrophils # (Auto) 9.2 x10^3/uL (1.8-7.7) Lymphocytes # (Auto) 1.8 x10^3/uL (1.0-4.8) Monocytes # (Auto) 1.3 x10^3/uL (0.0-1.1) Eosinophils # (Auto) 0.1 x10^3/uL (0.0-0.7) Basophils # (Auto) 0.0 x10^3/uL (0.0-0.2) Sodium Level 140 mmol/L (136-145) Potassium Level 3.6 mmol/L (3.5-5.1) Chloride Level 104 mmol/L (98-107) Carbon Dioxide Level 28 mmol/L (21-32) Anion Gap 8 (6-14) Blood Urea Nitrogen 10 mg/dL (8-26) Creatinine 0.9 mg/dL (0.7-1.3) Estimated GFR (Cockcroft-Gault) 99.1 Glucose Level 97 mg/dL (70-99) Calcium Level 8.1 mg/dL (8.5-10.1) Vancomycin Level Trough 9.1 mcg/mL (10.0-20.0) Vancomycin Last Dose Date 07/21/20 Vancomycin Last Dose Time 0300 Laboratory Tests Test 07/20/20 20:40 07/21/20 10:35 Lactic Acid Level 0.9 mmol/L (0.4-2.0) White Blood Count 12.4 x10^3/uL (4.0-11.0) Red Blood Count 4.29 x10^6/uL (4.30-5.70) Hemoglobin 12.8 g/dL (13.0-17.5) Hematocrit 37.0 % (39.0-53.0) Mean Corpuscular Volume 86 fL (79-100) Mean Corpuscular Hemoglobin 30 pg (25-35) Mean Corpuscular Hemoglobin Concent 35 g/dL (31-37) Red Cell Distribution Width 12.8 % (11.5-14.5) Platelet Count 194 x10^3/uL (140-400) Neutrophils (%) (Auto) 74 % (31-73) Lymphocytes (%) (Auto) 14 % (24-48) Monocytes (%) (Auto) 10 % (0-9) Eosinophils (%) (Auto) 1 % (0-3) Basophils (%) (Auto) 0 % (0-3) Neutrophils # (Auto) 9.2 x10^3/uL (1.8-7.7) Lymphocytes # (Auto) 1.8 x10^3/uL (1.0-4.8) Monocytes # (Auto) 1.3 x10^3/uL (0.0-1.1) Eosinophils # (Auto) 0.1 x10^3/uL (0.0-0.7) Basophils # (Auto) 0.0 x10^3/uL (0.0-0.2) Sodium Level 140 mmol/L (136-145) Potassium Level 3.6 mmol/L (3.5-5.1) Chloride Level 104 mmol/L (98-107) Carbon Dioxide Level 28 mmol/L (21-32) Anion Gap 8 (6-14) Blood Urea Nitrogen 10 mg/dL (8-26) Creatinine 0.9 mg/dL (0.7-1.3) Estimated GFR (Cockcroft-Gault) 99.1 Glucose Level 97 mg/dL (70-99) Calcium Level 8.1 mg/dL (8.5-10.1) Vancomycin Level Trough 9.1 mcg/mL (10.0-20.0) Vancomycin Last Dose Date 07/21/20 Vancomycin Last Dose Time 0300 Images Images U/S and CT scan reviewed Assessment/Plan Assessment/Plan CT shows no drainable abscess, diffuse soft tissue edema, therefore no plans on surgical intervention at this time. I will follow along and monitor his clinical course. RANDY REECE II, MD Jul 21, 2020 19:06
[2020-07-21 23:00] VITALS: BP 116/79
[2020-07-22] MEDS: fentaNYL PF VIAL 100 MCG/2 ML VIAL IVP PRN ×6 (02:05→20:02)
[2020-07-22 03:00] VITALS: BP 106/68
[2020-07-22] MEDS: VANCOMYCIN 1.5 GM in IV NORMAL SALINE 500ML BAG 500 ML IV SCH ×3 (04:27→20:01)
[2020-07-22] MEDS: HYDROcodone/APAP 5/325MG 1 TAB TABLET PO PRN ×4 (06:29→23:09)
[2020-07-22] MEDS: PIPERACILLIN/TAZOBACTAM 3.375 GM in IV NORMAL SALINE 50ML 50 ML IV SCH ×3 (06:30→18:17)
[2020-07-22 07:00] VITALS: BP 126/79
[2020-07-22] MEDS ORDERED: fentaNYL PF VIAL 100 MCG/2 ML VIAL IV PRN ×2 (07:00)
[2020-07-22] MEDS ORDERED: PROCHLORPERAZINE 10 MG/2 ML VIAL. IV PRN (07:00)
[2020-07-22] MEDS ORDERED: HYDROmorphone 2 MG/ML VIAL IV PRN (07:00)
[2020-07-22] MEDS ORDERED: IV RINGERS,LACTATED 1000ML 1,000 ML IV SCH (07:00)
[2020-07-22] MEDS ORDERED: ONDANSETRON PF 4 MG/2 ML VIAL. IV PRN (07:00)
[2020-07-22] MEDS ORDERED: MORPHINE SULFATE 2 MG/ML VIAL. IV PRN (07:00)
[2020-07-22] MEDS: FLECAINIDE ACETATE 50 MG TABLET. PO SCH ×2 (08:29→20:15)
[2020-07-22] MEDS: LACTOBACILLUS RHAMNOSUS GG 1 CAPSULE. PO SCH ×2 (08:29→20:15)
[2020-07-22] MEDS: ENOXAPARIN 40 MG/0.4 ML SYRINGE. SQ SCH (08:30)
--- NOTE | 2020-07-22 09:11 | PDOC ---
Infectious Disease Note Subjective Subjective c/o left arm pain, swelling and drainage Denies limited ROM of elbow No fever last 24 hours ROS ROS Denies SOA/cough Denies N/V/D Denies rash Vital Sign Vital Signs Vital Signs Date Time Temp Pulse Resp B/P (MAP) Pulse Ox O2 Delivery O2 Flow Rate FiO2 07/22/20 08:29 80 126/79 07/22/20 08:27 18 98 Room Air 07/22/20 07:00 99.0 99.0 Physical Exam PHYSICAL EXAM GENERAL: Propped up in bed, in no distress HEENT: Anicteric. No thrush. NECK: Supple, no JVD. LUNGS: Clear bilaterally. No wheezing. HEART: S1, S2. No gallops or murmurs. ABDOMEN: Soft, nontender, nondistended EXTREMITIES: Left upper extremity swollen, red and warm from the wrist to axilla area. There is less fluctuance and purulent drainage. DERMATOLOGIC: Multiple tattoos. No signs of rash NEUROLOGIC: Alert and oriented x 3, grossly nonfocal. PSYCHIATRIC: Cooperative, appropriate mood and affect. PIV Labs Lab Laboratory Tests Test 07/21/20 10:35 White Blood Count 12.4 x10^3/uL (4.0-11.0) Red Blood Count 4.29 x10^6/uL (4.30-5.70) Hemoglobin 12.8 g/dL (13.0-17.5) Hematocrit 37.0 % (39.0-53.0) Mean Corpuscular Volume 86 fL (79-100) Mean Corpuscular Hemoglobin 30 pg (25-35) Mean Corpuscular Hemoglobin Concent 35 g/dL (31-37) Red Cell Distribution Width 12.8 % (11.5-14.5) Platelet Count 194 x10^3/uL (140-400) Neutrophils (%) (Auto) 74 % (31-73) Lymphocytes (%) (Auto) 14 % (24-48) Monocytes (%) (Auto) 10 % (0-9) Eosinophils (%) (Auto) 1 % (0-3) Basophils (%) (Auto) 0 % (0-3) Neutrophils # (Auto) 9.2 x10^3/uL (1.8-7.7) Lymphocytes # (Auto) 1.8 x10^3/uL (1.0-4.8) Monocytes # (Auto) 1.3 x10^3/uL (0.0-1.1) Eosinophils # (Auto) 0.1 x10^3/uL (0.0-0.7) Basophils # (Auto) 0.0 x10^3/uL (0.0-0.2) Sodium Level 140 mmol/L (136-145) Potassium Level 3.6 mmol/L (3.5-5.1) Chloride Level 104 mmol/L (98-107) Carbon Dioxide Level 28 mmol/L (21-32) Anion Gap 8 (6-14) Blood Urea Nitrogen 10 mg/dL (8-26) Creatinine 0.9 mg/dL (0.7-1.3) Estimated GFR (Cockcroft-Gault) 99.1 Glucose Level 97 mg/dL (70-99) Calcium Level 8.1 mg/dL (8.5-10.1) Vancomycin Level Trough 9.1 mcg/mL (10.0-20.0) Vancomycin Last Dose Date 07/21/20 Vancomycin Last Dose Time 0300 CT Diffuse fat stranding identified in the subcutaneous region of the distal upper arm and proximal forearm likely diffuse cellulitis or edema. Micro Microbiology 07/19/20 Blood Culture - Preliminary, Resulted NO GROWTH AFTER 2 DAY Objective Assessment 1. Left upper extremity severe cellulitis, abscess draining - Ultrasound and CT negative for drainable fluid collection. 2. Leukocytosis - improved some 3. Febrile illness - better 4. History of chronic hepatitis C. 5. History of smoking. Plan Plan of Care f/u cultures Appreciate orthro eval. Continue IV vancomycin and Zosyn. Monitor renal functions closely. Vancomycin dose per pharmacy. Trough 9.1 Local wound care Pain management per primary Attending Co-Sign The patient was seen and examined at the bedside. The chart was reviewed. The case was discussed with WRITING TUTOR. Orthopedic input noted Follow-up cultures Blood cultures remain negative Follow-up staph aureus susceptibility IVANNA MONTANA APRN Jul 22, 2020 09:11 CATHEIRNE CALDERON MD Jul 22, 2020 12:06
[2020-07-22 11:00] VITALS: BP 153/88
--- NOTE | 2020-07-22 12:07 | PDOC ---
[employer] PROGRESS NOTE Date of Service DOS: DATE: 07/22/20 TIME: 12:06 Chief Complaint Chief Complaint A/P: Left upper extremity cellulitis - with abscess that is already drained a bit. No obvious left elbow involvement. lymphangitic spread to left axilla. Cont antibiotics. ID consulted Sepsis - due to cellulitis, will monitor. No respiratory symptoms. He is regularly tested for COVID at assisted, negative most recently Chronic hepatitis C - unknown viral titer Smoker - counseled on cessation H/o substance abuse - he denies using while incarcerated. Accurate history is difficult with corrections officers present Severe anxiety with multiple suicidal attempts - reportedly occurred at [facility] over a year ago Paroxysmal AFIB - sinus. previously taken off xarelto due to suicide attempt. will cont on diltiazem and prn flecainide FEN - General diet PPX - lovenox FULL CODE Dispo - inpatient for above. May need surgical consultation if no improvement. History of Present Illness History of Present Illness Mr Mcclelland is a 29 yo M w/ PMHx Hep C, afib, HLD, chronic pain who is incarcerated at [facility] who was sent to ED with c/o left upper ext remity swelling, redness, pain which was initially on his lateral left forearm and spread to his axilla. He did try to express discharge from a punctate wound site on lateral arm, but no purulence was expressed. He was started on trimethoprim/sulfamethoxazole x 3 doses and when he was noted with progression of rash with lymphagitic spread and worsening redness, tenderness and gener alized rigors and chills he was sent to ED. Non vascular US revealed soft tissue edema, no abscess. On admit noted with WBC 15, CRP 29.2, Cr 1.2. Started on empiric vancomycin and Zosyn. 07/20: Afebrile. He tells me the swelling and redness are worse from admission. He has been previously admitted for this and we have discussed this. No SOB or CP. No N/V/D. 07/21: Febrile to 101.2 F overnight. Swelling and redness same has had some drainage through the punctate area on his left lateral forearm. Orthopedic surgery consulted for further recommendations given swelling around the left elbow joint. CT negative for abscess. Afebrile. No shortness of breath or chest pain no nausea vomiting or diarrhea. Vanc trough low. Still with significant pain. Vitals/I&O Vitals/I&O: Vital Signs Date Time Temp Pulse Resp B/P (MAP) Pulse Ox O2 Delivery O2 Flow Rate FiO2 07/22/20 11:17 20 93 Room Air 07/22/20 11:00 98.9 84 153/88 (109) 98.9 07/22/20 08:00 2.0 I & O 07/21/20 07/21/20 07/22/20 15:00 23:00 07:00 Intake Total 2050 ml 730 ml 240 ml Output Total 700 ml 700 ml 1425 ml Balance 1350 ml 30 ml -1185 ml Physical Exam Physical Exam: GENERAL: Propped up in bed, in no distress HEENT: Anicteric. No thrush. NECK: Supple, no JVD. LUNGS: Clear bilaterally. No wheezing. HEART: S1, S2. No gallops or murmurs. ABDOMEN: Soft, nontender, nondistended EXTREMITIES: Left upper extremity swollen, red and warm from the wrist to axilla area. There is less fluctuance and purulent drainage. DERMATOLOGIC: Multiple tattoos. No signs of rash NEUROLOGIC: Alert and oriented x 3, grossly nonfocal. PSYCHIATRIC: Cooperative, appropriate mood and affect. PIV General: Alert, Oriented X3 Heart: Regular rate Lungs: Clear Abdomen: Soft, No tenderness Extremities: No edema (No edema in right upper extremity, bilateral lower extremities), Normal pulses Skin: Other (Please see musculoskeletal exam) Labs Labs: Laboratory Tests Test 07/21/20 16:38 Coronavirus (PCR) Not detected (Not Detected) Assessment and Plan Assessmemt and Plan Problems Medical Problems: (1) Cellulitis Status: Acute Comment Review of Relevant I have reviewed the following items derick (where applicable) has been applied. Medications: Current Medications Medications (Trade) Dose Ordered Sig/Kwaku Route PRN Reason Start Time Stop Time Status Last Admin Dose Admin Fentanyl Citrate (Fentanyl 2ml Vial) 100 mcg PRN Q2HR PRN IVP SEVERE PAIN 7-10 07/21/20 18:00 07/22/20 11:17 Justifications for Admission Other Justification MAGEN DELEON MD Jul 22, 2020 12:07
[2020-07-22 12:14] LABS: CREATININE 1.1 mg/dL (0.7-1.3); GFR 78.6
[2020-07-22 12:20] LABS: VANC TR 11.9 mcg/mL (10.0-20.0)
[2020-07-22] MEDS: IV NORMAL SALINE 1000ML BAG 1,000 ML IV SCH ×4 (12:45→23:10)
[2020-07-22] MEDS: VANCOMYCIN PER PHARMACY MC PRN (14:55)
--- NOTE | 2020-07-22 14:55 | NUR ---
Pharmacy Vancomycin Dosing Note S: Consulted to monitor and dose vancomycin started 07/19/20. O: DINESH LEE is a 29 year old M with cellulitis. Other Antibiotics: ZOSYN 3.375G IV Q6HRS LABS: Last BUN: 10 Last Creatinine: 1.1 Creatinine Clearance: >120 mL/min Last WBC: 12.4 Last Procalcitonin: - Tmax (past 24 hours): 99 Microbiology: 07/21 BCX NGTD 07/21 ABSCESS CX: STAPH AUREUS I/O: 3020/2825 Drug Levels: Last Trough level: 11.9 on 07/22/20 at 1130 Last dose given 07/22/20 at 0433 Vancomycin Dosing: Dosing Weight: Actual Target Trough: 10-20 A: Patient is receiving vancomycin 1500 mg IV q8hrs. A trough of 11.9 mcg/ml is within goal range. Renal function remains stable. P: 1. Continue Vancomycin 1500 mg IV q8h 2. Follow up trough in 5 - 7 days 3. Pharmacy will continue to monitor, follow and adjust therapy as needed. BONG EMMANUEL, [facility], 07/22/20 [id number]
[2020-07-22 15:00] VITALS: BP 128/79
[2020-07-22] MEDS ORDERED: HYDROcodone/APAP 5/325MG 1 TAB TABLET PO PRN (16:15)
[2020-07-22 19:00] VITALS: BP_SYST 130; BP_DIAS 22; BP_DIAS 72
[2020-07-22 23:00] VITALS: BP 134/80
[2020-07-23] MEDS: fentaNYL PF VIAL 100 MCG/2 ML VIAL IVP PRN ×6 (00:12→22:05)
[2020-07-23] MEDS: PIPERACILLIN/TAZOBACTAM 3.375 GM in IV NORMAL SALINE 50ML 50 ML IV SCH ×2 (00:12→06:38)
[2020-07-23 03:00] VITALS: BP 134/68
[2020-07-23] MEDS: VANCOMYCIN 1.5 GM in IV NORMAL SALINE 500ML BAG 500 ML IV SCH (04:18)
[2020-07-23] MEDS: HYDROcodone/APAP 5/325MG 1 TAB TABLET PO PRN ×3 (06:39→19:13)
[2020-07-23] MEDS: IV NORMAL SALINE 1000ML BAG 1,000 ML IV SCH ×2 (06:42→15:48)
[2020-07-23 07:00] VITALS: BP 147/88
--- NOTE | 2020-07-23 08:27 | PDOC ---
[employer] PROGRESS NOTE Date of Service DOS: DATE: 07/23/20 TIME: 08:26 Chief Complaint Chief Complaint A/P: Left upper extremity cellulitis - with abscess that is already drained a bit. No obvious left elbow involvement. lymphangitic spread to left axilla. Cont antibiotics. ID consulted Sepsis - due to cellulitis, will monitor. No respiratory symptoms. He is regularly tested for COVID at group home, negative most recently Chronic hepatitis C - unknown viral titer Smoker - counseled on cessation H/o substance abuse - he denies using while incarcerated. Accurate history is difficult with corrections officers present Severe anxiety with multiple suicidal attempts - reportedly occurred at [facility] over a year ago Paroxysmal AFIB - sinus. previously taken off xarelto due to suicide attempt. will cont on diltiazem and prn flecainide FEN - General diet PPX - lovenox FULL CODE Dispo - inpatient for above. May need surgical consultation if no improvement. History of Present Illness History of Present Illness Mr Mcclelland is a 29 yo M w/ PMHx Hep C, afib, HLD, chronic pain who is incarcerated at [facility] who was sent to ED with c/o left upper ext remity swelling, redness, pain which was initially on his lateral left forearm and spread to his axilla. He did try to express discharge from a punctate wound site on lateral arm, but no purulence was expressed. He was started on trimethoprim/sulfamethoxazole x 3 doses and when he was noted with progression of rash with lymphagitic spread and worsening redness, tenderness and gener alized rigors and chills he was sent to ED. Non vascular US revealed soft tissue edema, no abscess. On admit noted with WBC 15, CRP 29.2, Cr 1.2. Started on empiric vancomycin and Zosyn. 07/20: Afebrile. He tells me the swelling and redness are worse from admission. He has been previously admitted for this and we have discussed this. No SOB or CP. No N/V/D. 07/21: Febrile to 101.2 F overnight. Swelling and redness same has had some drainage through the punctate area on his left lateral forearm. Orthopedic surgery consulted for further recommendations given swelling around the left elbow joint. CT negative for abscess. 07/22: Afebrile. No shortness of breath or chest pain no nausea vomiting or diarrhea. Vanc trough low. Still with significant pain. Staph on prelim wound culture, MRSA. Afebrile no shortness of breath or chest pain no nausea vomiting or diarrhea. Very diaphoretc during daptomycin infusion. Plan: Transition to zyvox overnight Solumedrol, benadryl, pepcid for possible reaction to daptomycin Vitals/I&O Vitals/I&O: Vital Signs Date Time Temp Pulse Resp B/P (MAP) Pulse Ox O2 Delivery O2 Flow Rate FiO2 07/23/20 07:00 98.5 65 18 147/88 (107) 99 Room Air 98.5 07/22/20 23:09 2.0 I & O 07/22/20 07/22/20 07/23/20 15:00 23:00 07:00 Intake Total 240 ml 300 ml Output Total 650 ml 800 ml 1050 ml Balance -410 ml -500 ml -1050 ml Physical Exam Physical Exam: GENERAL: Propped up in bed, in no distress HEENT: Anicteric. No thrush. NECK: Supple, no JVD. LUNGS: Clear bilaterally. No wheezing. HEART: S1, S2. No gallops or murmurs. ABDOMEN: Soft, nontender, nondistended EXTREMITIES: Left upper extremity swollen, red and warm from the wrist to axilla area. There is less fluctuance and purulent drainage. DERMATOLOGIC: Multiple tattoos. No signs of rash NEUROLOGIC: Alert and oriented x 3, grossly nonfocal. PSYCHIATRIC: Cooperative, appropriate mood and affect. PIV General: Alert, Oriented X3 Heart: Regular rate Lungs: Clear Abdomen: Soft, No tenderness Extremities: No edema (No edema in right upper extremity, bilateral lower extremities), Normal pulses Skin: Other (Please see musculoskeletal exam) Labs Labs: Laboratory Tests Test 07/22/20 11:56 Creatinine 1.1 mg/dL (0.7-1.3) Estimated GFR (Cockcroft-Gault) 78.6 Vancomycin Level Trough 11.9 mcg/mL (10.0-20.0) Vancomycin Last Dose Date 07/22/20 Vancomycin Last Dose Time 0400 Assessment and Plan Assessmemt and Plan Problems Medical Problems: (1) Cellulitis Status: Acute Comment Review of Relevant I have reviewed the following items derick (where applicable) has been applied. Medications: Current Medications Medications (Trade) Dose Ordered Sig/Kwaku Route PRN Reason Start Time Stop Time Status Last Admin Dose Admin Acetaminophen/ Hydrocodone Bitart (Lortab 5/325) 2 tab PRN Q4HRS PRN PO MODERATE PAIN, SEVERE PAIN 07/22/20 16:15 07/23/20 06:39 Justifications for Admission Other Justification MAGEN DELEON MD Jul 23, 2020 08:27
--- NOTE | 2020-07-23 08:39 | PDOC ---
Infectious Disease Note Subjective: Subjective c/o left arm pain, swelling and drainage Denies limited ROM of elbow No fever last 24 hours Vital Signs: Vital Signs Vital Signs Date Time Temp Pulse Resp B/P (MAP) Pulse Ox O2 Delivery O2 Flow Rate FiO2 07/23/20 07:00 98.5 65 18 147/88 (107) 99 Room Air 98.5 07/22/20 23:09 2.0 Physical Exam: PHYSICAL EXAM GENERAL: Propped up in bed, in no distress HEENT: Anicteric. No thrush. NECK: Supple, no JVD. LUNGS: Clear bilaterally. No wheezing. HEART: S1, S2. No gallops or murmurs. ABDOMEN: Soft, nontender, nondistended EXTREMITIES: Left upper extremity swollen, red and warm from the wrist to axilla area. There is less fluctuance and purulent drainage. DERMATOLOGIC: Multiple tattoos. No signs of rash NEUROLOGIC: Alert and oriented x 3, grossly nonfocal. PSYCHIATRIC: Cooperative, appropriate mood and affect. PIV Medications: Inpatient Meds: Current Medications Medications (Trade) Dose Ordered Sig/Kwaku Start Time Stop Time Status Last Admin Dose Admin Acetaminophen (Tylenol) 650 mg PRN Q6HRS PRN 07/20/20 20:45 07/20/20 21:00 650 MG Acetaminophen/ Hydrocodone Bitart (Lortab 5/325) 2 tab PRN Q4HRS PRN 07/22/20 16:15 07/23/20 06:39 2 TAB Diltiazem HCl (Cardizem 24hr Cd) 120 mg DAILY 07/20/20 09:00 07/22/20 08:29 120 MG Diphenhydramine HCl (Benadryl) 25 mg 1X ONCE 07/21/20 00:45 07/21/20 00:46 DC Enoxaparin Sodium (Lovenox 40mg Syringe) 40 mg Q24H 07/21/20 09:00 07/22/20 08:30 40 MG Fentanyl Citrate (Fentanyl 2ml Vial) 100 mcg PRN Q2HR PRN 07/21/20 18:00 07/23/20 02:49 100 MCG Flecainide Acetate (Tambocor) 100 mg Q12HR 07/20/20 09:00 07/22/20 20:15 100 MG Hydromorphone HCl (Dilaudid) 0.5 mg PRN Q10MIN PRN 07/22/20 07:00 07/23/20 07:00 DC Lactobacillus Rhamnosus (Culturelle) 1 cap BID 07/20/20 21:00 07/22/20 20:15 1 CAP Morphine Sulfate (Morphine Sulfate) 1 mg PRN Q10MIN PRN 07/22/20 07:00 07/23/20 07:00 DC Ondansetron HCl (Zofran) 4 mg PRN Q6HRS PRN 07/22/20 07:00 07/23/20 07:00 DC Piperacillin Sod/ Tazobactam Sod 3.375 gm/Sodium Chloride 50 ml @ 100 mls/hr Q6HRS 07/20/20 10:00 07/23/20 06:38 100 MLS/HR Prochlorperazine Edisylate (Compazine) 5 mg PACU PRN PRN 07/22/20 07:00 07/23/20 07:00 DC Ringer's Solution 1,000 ml @ 30 mls/hr Q24H 07/22/20 07:00 07/22/20 18:59 DC Sodium Chloride 1,000 ml @ 125 mls/hr Q8H 07/20/20 20:45 07/23/20 06:42 125 MLS/HR Vancomycin HCl (Vanco Per Pharmacy) 1 each PRN DAILY PRN 07/20/20 09:00 07/22/20 14:55 1 EACH Vancomycin HCl (Vancomycin Trough Level) 1 each 1X ONCE 07/21/20 10:30 07/21/20 10:31 DC 07/21/20 10:30 1 EACH Vancomycin HCl 1.25 gm/Sodium Chloride 250 ml @ 167 mls/hr Q8H 07/20/20 19:00 07/21/20 11:47 DC 07/21/20 02:41 167 MLS/HR Vancomycin HCl 1.5 gm/Sodium Chloride 500 ml @ 250 mls/hr Q8H 07/21/20 12:00 07/23/20 04:18 250 MLS/HR Vancomycin HCl 2 gm/Sodium Chloride 500 ml @ 250 mls/hr 1X ONCE 07/20/20 09:15 07/20/20 11:14 DC 07/20/20 10:56 250 MLS/HR Labs: Lab Laboratory Tests Test 07/22/20 11:56 Creatinine 1.1 mg/dL (0.7-1.3) Estimated GFR (Cockcroft-Gault) 78.6 Vancomycin Level Trough 11.9 mcg/mL (10.0-20.0) Vancomycin Last Dose Date 07/22/20 Vancomycin Last Dose Time 0400 Micro AGE/SX: 29/M ROOM: [facility] RE07/19/[address]: ARI WYATT III, DO : 1990 BED: 1 DIS: STATUS: ADM IN TLOC: -------- ---- SPEC #: [id number] YOON: 07/21/20 STATUS: RES REQ #: [id number] RECD: 07/21/20-[address]: IVANNA MONTANA APRN SOURCE: ABSCESS ENTR: 07/21/[address]: ARI WYATT III, DO SPDESC: JAYY CALDERON MD, TIMOTHY J MD NO PCP ORDERED: ANAER/AEROB/GS COMMENTS: LEFT ARM ABSCESS --------- --- Procedure Result GRAM STAIN Final Final GRAM POSITIVE COCCI:MODERATE SQUAMOUS EPI CELL:NONE SEEN PMN (WBCs):MANY ANAEROBIC-AEROBIC CULTURE Preliminary Preliminary FEW GRAM POSITIVE COCCI on 07/22/20 at 1036 FINAL ID= [STAPHYLOCOCCUS AUREUS (MRSA)] STAPHYLOCOCCUS AUREUS (MRSA) ANTIMICROBIAL SUSCEPTIBILITY Preliminary Comment POS IKER TYPE 38 STAPHYLOCOCCUS AUREUS (MRSA) ANTIBIOTIC RESULT INTERPRETATION AZITHROMYCIN >4 R CLINDAMYCIN <=0.25 S CEFOXITIN SCREEN >4 POS CIPROFLOXACIN >2 R CEFTAROLINE <=0.5 S DAPTOMYCIN <=0.5 S ERYTHROMYCIN >4 R GENTAMICIN <=4 S INDUCIBLE CLINDAMYCIN <=4/0.5 NEG LINEZOLID 2 S LEVOFLOXACIN 4 I OXACILLIN >2 R PENICILLIN >2 R* RIFAMPIN <=1 S TRIMETHOPRIM/SULFAMETHOXAZOLE <=0.5/9.5 S TETRACYCLINE <=4 S VANCOMYCIN 1 S Unless otherwise specified, Testing Performed by: [facility] [address] CONTINUED ON NEXT PAGE RUN DATE: 07/23/20 [facility] LAB *LIVE* PAGE 2 RUN TIME: 1032 Specimen Inquiry SPEC: [id number] PATIENT: DINESH LEE [id number] (Continued) Procedure Result ANTIMICROBIAL SUSCEPTIBILITY Preliminary (continued) [place] [address] For Inquires, the Physician may contact the Microbiology department at [phone] Objective: Assessment: 1. MRSA left upper extremity severe cellulitis, abscess draining - Ultrasound and CT negative for drainable fluid collection. 2. Leukocytosis - improved some 3. Febrile illness - better 4. History of chronic hepatitis C. 5. History of smoking. Plan: Plan of Care DC IV vancomycin as patient is requiring high dose contain adequate vancomycin level Appreciate orthro evaluation Start daptomycin DC Zosyn Elevate right upper extremity Local wound care Pain management per primary Discussed with CATHERINE Rosales MD Jul 23, 2020 08:39
[2020-07-23] MEDS: FLECAINIDE ACETATE 50 MG TABLET. PO SCH ×2 (08:41→20:41)
[2020-07-23] MEDS: LACTOBACILLUS RHAMNOSUS GG 1 CAPSULE. PO SCH ×2 (08:42→20:41)
[2020-07-23] MEDS: ENOXAPARIN 40 MG/0.4 ML SYRINGE. SQ SCH (08:43)
[2020-07-23] MEDS ORDERED: DAPTOmycin (GENERIC) IVPB 550 MG in IV NORMAL SALINE 50ML 50 ML IV SCH (09:00)
[2020-07-23 11:15] VITALS: BP 141/83
[2020-07-23] MEDS ORDERED: diphenhydrAMINE HCL 25 MG CAPSULE PO PRN (12:15)
[2020-07-23] MEDS ORDERED: FAMOTIDINE 20 MG TABLET. PO ONE (12:15)
[2020-07-23] MEDS ORDERED: diphenhydrAMINE 50 MG/ML VIAL IVP ONE (12:15)
[2020-07-23] MEDS ORDERED: methylPREDNISolone SOD SUCC PF 125 MG/2 ML VIAL. IV ONE (12:15)
[2020-07-23 15:03] VITALS: BP 150/78
[2020-07-23 19:00] VITALS: BP 136/64
[2020-07-23] MEDS: diphenhydrAMINE HCL 25 MG CAPSULE PO PRN (20:41)
[2020-07-23 23:23] VITALS: BP 113/70
[2020-07-24] MEDS: IV NORMAL SALINE 1000ML BAG 1,000 ML IV SCH ×3 (00:26→12:45)
[2020-07-24] MEDS: fentaNYL PF VIAL 100 MCG/2 ML VIAL IVP PRN (03:34)
[2020-07-24 03:48] VITALS: BP 124/74
[2020-07-24] MEDS: HYDROcodone/APAP 5/325MG 1 TAB TABLET PO PRN ×3 (04:14→13:52)
[2020-07-24 07:00] VITALS: BP 155/83
--- NOTE | 2020-07-24 08:30 | PDOC ---
Infectious Disease Note Subjective: Subjective Patient overall feels better Left arm pain, swelling and drainage has improved Denies fever, nausea, vomiting, shortness of breath, diarrhea, abdominal pain, rash Otherwise as above Vital Signs: Vital Signs Vital Signs Date Time Temp Pulse Resp B/P (MAP) Pulse Ox O2 Delivery O2 Flow Rate FiO2 07/24/20 07:00 97.6 63 18 155/83 (107) 100 Room Air 97.6 07/23/20 17:40 2.0 Physical Exam: PHYSICAL EXAM GENERAL: Propped up in bed, in no distress HEENT: Anicteric. No thrush. NECK: Supple, no JVD. LUNGS: Clear bilaterally. No wheezing. HEART: S1, S2. No gallops or murmurs. ABDOMEN: Soft, nontender, nondistended EXTREMITIES: Left upper extremity swollen, red and warm from the wrist to axilla area. There is less fluctuance and purulent drainage. DERMATOLOGIC: Multiple tattoos. No signs of rash NEUROLOGIC: Alert and oriented x 3, grossly nonfocal. PSYCHIATRIC: Cooperative, appropriate mood and affect. PIV Medications: Inpatient Meds: Current Medications Medications (Trade) Dose Ordered Sig/Kwaku Start Time Stop Time Status Last Admin Dose Admin Acetaminophen (Tylenol) 650 mg PRN Q6HRS PRN 07/20/20 20:45 07/20/20 21:00 650 MG Acetaminophen/ Hydrocodone Bitart (Lortab 5/325) 2 tab PRN Q4HRS PRN 07/22/20 16:15 07/24/20 04:14 2 TAB Daptomycin 550 mg/ Sodium Chloride 50 ml @ 100 mls/hr Q24H 07/23/20 09:00 07/23/20 18:23 DC 07/23/20 10:00 100 MLS/HR Diltiazem HCl (Cardizem 24hr Cd) 120 mg DAILY 07/20/20 09:00 07/23/20 08:42 120 MG Diphenhydramine HCl (Benadryl) 25 mg PRN Q6HRS PRN 07/23/20 12:15 Enoxaparin Sodium (Lovenox 40mg Syringe) 40 mg Q24H 07/21/20 09:00 07/23/20 08:43 40 MG Famotidine (Pepcid) 20 mg 1X ONCE 07/23/20 12:15 07/23/20 12:16 DC 07/23/20 12:20 20 MG Fentanyl Citrate (Fentanyl 2ml Vial) 100 mcg PRN Q2HR PRN 07/21/20 18:00 07/24/20 03:34 100 MCG Flecainide Acetate (Tambocor) 100 mg Q12HR 07/20/20 09:00 07/23/20 20:41 100 MG Hydromorphone HCl (Dilaudid) 0.5 mg PRN Q10MIN PRN 07/22/20 07:00 07/23/20 07:00 DC Lactobacillus Rhamnosus (Culturelle) 1 cap BID 07/20/20 21:00 07/23/20 20:41 1 CAP Linezolid (Zyvox) 600 mg BID 07/24/20 21:00 Linezolid/Dextrose 300 ml @ 300 mls/hr Q12HR 07/23/20 21:00 07/24/20 09:59 07/23/20 20:41 300 MLS/HR Methylprednisolone Sodium Succinate (SOLU-Medrol 125MG VIAL) 125 mg 1X ONCE 07/23/20 12:15 07/23/20 12:16 DC 07/23/20 12:20 125 MG Morphine Sulfate (Morphine Sulfate) 1 mg PRN Q10MIN PRN 07/22/20 07:00 07/23/20 07:00 DC Ondansetron HCl (Zofran) 4 mg PRN Q6HRS PRN 07/22/20 07:00 07/23/20 07:00 DC Piperacillin Sod/ Tazobactam Sod 3.375 gm/Sodium Chloride 50 ml @ 100 mls/hr Q6HRS 07/20/20 10:00 07/23/20 08:41 DC 07/23/20 06:38 100 MLS/HR Prochlorperazine Edisylate (Compazine) 5 mg PACU PRN PRN 07/22/20 07:00 07/23/20 07:00 DC Ringer's Solution 1,000 ml @ 30 mls/hr Q24H 07/22/20 07:00 07/22/20 18:59 DC Sodium Chloride 1,000 ml @ 125 mls/hr Q8H 07/20/20 20:45 07/24/20 00:26 125 MLS/HR Vancomycin HCl (Vanco Per Pharmacy) 1 each PRN DAILY PRN 07/20/20 09:00 07/23/20 09:42 DC 07/22/20 14:55 1 EACH Vancomycin HCl (Vancomycin Trough Level) 1 each 1X ONCE 07/21/20 10:30 07/21/20 10:31 DC 07/21/20 10:30 1 EACH Vancomycin HCl 1.25 gm/Sodium Chloride 250 ml @ 167 mls/hr Q8H 07/20/20 19:00 07/21/20 11:47 DC 07/21/20 02:41 167 MLS/HR Vancomycin HCl 1.5 gm/Sodium Chloride 500 ml @ 250 mls/hr Q8H 07/21/20 12:00 07/23/20 08:38 DC 07/23/20 04:18 250 MLS/HR Vancomycin HCl 2 gm/Sodium Chloride 500 ml @ 250 mls/hr 1X ONCE 07/20/20 09:15 07/20/20 11:14 DC 07/20/20 10:56 250 MLS/HR Labs: Micro AGE/SX: 29/M ROOM: [facility] RE07/19/[address]: ARI WYATT III DO : 1990 BED: 1 DIS: STATUS: ADM IN TLOC: SPEC #: [id number] YOON: 07/21/20-999 STATUS: RES REQ #: [id number] RECD: 07/21/20-[address]: IVANNA MONTANA APRN SOURCE: ABSCESS ENTR: 07/21/[address]: ARI WYATT III, DO SPDESC: JAYY CALDERON MD,ADELE Hood MD NO PCP ORDERED: ANAER/AEROB/GS COMMENTS: LEFT ARM ABSCESS Procedure Result GRAM STAIN Final Final GRAM POSITIVE COCCI:MODERATE SQUAMOUS EPI CELL:NONE SEEN PMN (WBCs):MANY ANAEROBIC-AEROBIC CULTURE Preliminary Preliminary FEW GRAM POSITIVE COCCI on 07/22/20 at 1036 FINAL ID= [STAPHYLOCOCCUS AUREUS (MRSA)] STAPHYLOCOCCUS AUREUS (MRSA) ANTIMICROBIAL SUSCEPTIBILITY Preliminary Comment POS IKER TYPE 38 STAPHYLOCOCCUS AUREUS (MRSA) ANTIBIOTIC RESULT INTERPRETATION AZITHROMYCIN >4 R CLINDAMYCIN <=0.25 S CEFOXITIN SCREEN >4 POS CIPROFLOXACIN >2 R CEFTAROLINE <=0.5 S DAPTOMYCIN <=0.5 S ERYTHROMYCIN >4 R GENTAMICIN <=4 S INDUCIBLE CLINDAMYCIN <=4/0.5 NEG LINEZOLID 2 S LEVOFLOXACIN 4 I OXACILLIN >2 R PENICILLIN >2 R* RIFAMPIN <=1 S TRIMETHOPRIM/SULFAMETHOXAZOLE <=0.5/9.5 S TETRACYCLINE <=4 S VANCOMYCIN 1 S Unless otherwise specified, Testing Performed by: [facility] [address] CONTINUED ON NEXT PAGE RUN DATE: 07/23/20 [facility] LAB *LIVE* PAGE 2 RUN TIME: 1032 Specimen Inquiry SPEC: [id number] PATIENT: DINESH LEE [id number] (Continued) Procedure Result ANTIMICROBIAL SUSCEPTIBILITY Preliminary (continued) [place] [address] For Inquires, the Physician may contact the Microbiology department at [phone] Objective: Assessment: 1. MRSA left upper extremity severe cellulitis, abscess draining - Ultrasound and CT negative for drainable fluid collection. 2. Leukocytosis - improved some 3. Febrile illness - better 4. History of chronic hepatitis C. 5. History of smoking. Plan: Plan of Care DC IV linezolid P.o. linezolid for 10 days Elevate left upper extremity Continue wound care as directed Patient is okay to discharge from ID standpoint Cussed with nursing staff CATHERINE CALDERON MD Jul 24, 2020 08:30
--- NOTE | 2020-07-24 08:33 | PDOC ---
[employer] PROGRESS NOTE Date of Service DOS: DATE: 07/24/20 TIME: 08:33 Chief Complaint Chief Complaint A/P: Left upper extremity cellulitis - with abscess drained. No obvious left elbow involvement. lymphangitic spread to left axilla. Cont antibiotics. ID consulted and ortho. PO zyvox. Sepsis - due to cellulitis, will monitor. No respiratory symptoms. He is regularly tested for COVID at care home, negative most recently Chronic hepatitis C - unknown viral titer Smoker - counseled on cessation H/o substance abuse - he denies using while incarcerated. Accurate history is difficult with corrections officers present Severe anxiety with multiple suicidal attempts - reportedly occurred at [facility] over a year ago Paroxysmal AFIB - sinus. previously taken off xarelto due to suicide attempt. will cont on diltiazem and prn flecainide FEN - General diet PPX - lovenox FULL CODE Dispo - ok for dc History of Present Illness History of Present Illness Mr Mcclelland is a 29 yo M w/ PMHx Hep C, afib, HLD, chronic pain who is incarcerated at [facility] who was sent to ED with c/o left upper extremity swelling, redness, pain which was initially on his lateral left forearm and spread to his axilla. He did try to express discharge from a punctate wound site on lateral arm, but no purulence was expressed. He was started on trimethoprim/sulfamethoxazole x 3 doses and when he was noted with progression of rash with lymphagitic spread and worsening redness, tenderness and generalized rigors and chills he was sent to ED. Non vascular US revealed soft tissue edema, no abscess. On admit noted with WBC 15, CRP 29.2, Cr 1.2. Started on empiric vancomycin and Zosyn. 07/20: Afebrile. He tells me the swelling and redness are worse from admission. He has been previously admitted for this and we have discussed this. No SOB or CP. No N/V/D. 07/21: Febrile to 101.2 F overnight. Swelling and redness same has had some drainage through the punctate area on his left lateral forearm. Orthopedic surgery consulted for further recommendations given swelling around the left elbow joint. CT negative for abscess. 07/22: Afebrile. No shortness of breath or chest pain no nausea vomiting or diarrhea. Vanc trough low. Still with significant pain. 07/23: Staph on prelim wound culture, MRSA. Afebrile no shortness of breath or chest pain no nausea vomiting or diarrhea. Very diaphoretic during daptomycin infusion. Solumedrol, benadryl, pepcid for possible reaction to daptomycin Afebrile. Transition to zyvox overnight. Wound looks significantly better No CP or SOB. No IV pain meds. D/w ID to discharge to care home. Vitals/I&O Vitals/I&O: Vital Signs Date Time Temp Pulse Resp B/P (MAP) Pulse Ox O2 Delivery O2 Flow Rate FiO2 07/24/20 07:00 97.6 63 18 155/83 (107) 100 Room Air 97.6 07/23/20 17:40 2.0 I & O 07/23/20 07/23/20 07/24/20 15:00 23:00 07:00 Intake Total 550 ml 800 ml 1500 ml Output Total 500 ml 750 ml 600 ml Balance 50 ml 50 ml 900 ml Physical Exam Physical Exam: GENERAL: Propped up in bed, in no distress HEENT: Anicteric. No thrush. NECK: Supple, no JVD. LUNGS: Clear bilaterally. No wheezing. HEART: S1, S2. No gallops or murmurs. ABDOMEN: Soft, nontender, nondistended EXTREMITIES: Left upper extremity swollen, red and warm from the wrist to axilla area. There is less fluctuance and purulent drainage. DERMATOLOGIC: Multiple tattoos. No signs of rash NEUROLOGIC: Alert and oriented x 3, grossly nonfocal. PSYCHIATRIC: Cooperative, appropriate mood and affect. PIV General: Alert, Oriented X3 Heart: Regular rate Lungs: Clear Abdomen: Soft, No tenderness Extremities: No edema (No edema in right upper extremity, bilateral lower extremities), Normal pulses Skin: Other (Please see musculoskeletal exam) Assessment and Plan Assessmemt and Plan Problems Medical Problems: (1) Cellulitis Status: Acute Comment Review of Relevant I have reviewed the following items derick (where applicable) has been applied. Medications: Current Medications Medications (Trade) Dose Ordered Sig/Kwaku Route PRN Reason Start Time Stop Time Status Last Admin Dose Admin Daptomycin 550 mg/ Sodium Chloride 50 ml @ 100 mls/hr Q24H IV 07/23/20 09:00 07/23/20 18:23 DC 07/23/20 10:00 Methylprednisolone Sodium Succinate (SOLU-Medrol 125MG VIAL) 125 mg 1X ONCE IV 07/23/20 12:15 07/23/20 12:16 DC 07/23/20 12:20 Diphenhydramine HCl (Benadryl) 25 mg 1X ONCE IVP 07/23/20 12:15 07/23/20 12:16 DC 07/23/20 12:20 Famotidine (Pepcid) 20 mg 1X ONCE PO 07/23/20 12:15 07/23/20 12:16 DC 07/23/20 12:20 Linezolid/Dextrose 300 ml @ 300 mls/hr Q12HR IV 07/23/20 21:00 07/24/20 08:30 DC 07/23/20 20:41 Justifications for Admission Other Justification MAGEN DELEON MD Jul 24, 2020 08:33
[2020-07-24] MEDS ORDERED: LINEZOLID 600 MG TABLET PO SCH ×2 (09:00→21:00)
[2020-07-24] MEDS: LACTOBACILLUS RHAMNOSUS GG 1 CAPSULE. PO SCH (09:17)
[2020-07-24] MEDS: FLECAINIDE ACETATE 50 MG TABLET. PO SCH (09:17)
[2020-07-24] MEDS: ENOXAPARIN 40 MG/0.4 ML SYRINGE. SQ SCH (09:18)
[2020-07-24 11:00] VITALS: BP 153/69
[2020-07-24] MEDS ORDERED: LINE600T12 PO (12:08)
[2020-07-24] MEDS ORDERED: LACT1CAP19 PO (12:08)
[2020-07-24] MEDS ORDERED: ACET325T9 PO (12:08)
--- NOTE | 2020-07-24 12:09 | SNU/HH DC ---
DISCHARGE ORDERS DISCHARGE INFORMATION: DISCHARGE DATE: Jul 24, 2020 FINAL DIAGNOSIS Problems Medical Problems: (1) Cellulitis Status: Acute CONDITION ON DISCHARGE: Stable CODE STATUS: Code Status: Full POST DISCHARGE ORDERS: ACTIVITY ORDERS: Activity as tolerated WEIGHT BEARING STATUS: As tolerated DIET AFTER DISCHARGE: Cardiac WOUND/INCISION CARE: Keep wound elevated, Change dressing, Reinforce dressing PRN CHECKS AFTER DISCHARGE: CHECKS AFTER DISCHARGE: Check blood press - daily, Check your Temp as needed TREATMENT/EQUIPMENT ORDERS: ADAPTIVE EQUIPMENT NEEDED: Cane DISCHARGE MEDICATIONS: Home Meds Active Scripts Chlorhexidine Gluconate (CHLORHEXIDINE GLUCONATE) 118 Ml Liquid, 1 DEVIN TP DAILY for MRSA decolonization for 2 Days, #237 ML 0 Refills Prov:MAGEN DELEON MD 07/24/20 Mupirocin (MUPIROCIN OINTMENT) 22 Gm Oint...g., 1 DEVIN NS TID for Nasal for 5 Days, #1 TUBE Prov:MAGEN DELEON MD 07/24/20 Acetaminophen (TYLENOL) 325 Mg Tablet, 650 MG PO PRN Q6HRS PRN for MILD PAIN / TEMP > 100.3'F for 30 Days, #120 TAB Prov:MAGEN DELEON MD 07/24/20 Lactobacillus Rhamnosus Gg (CULTURELLE) 1 Each Cap.sprink, 1 CAP PO BID for Cellulitis for 14 Days, #28 CAP Prov:MAGEN DELEON MD 07/24/20 Linezolid (ZYVOX) 600 Mg Tablet, 600 MG PO BID for MRSA Wound for 14 Days, #28 TAB Prov:MAGEN DELEON MD 07/24/20 Reported Medications Flecainide Acetate (FLECAINIDE ACETATE) 100 Mg Tablet, 1 TAB PO BID for abdnormal heart beats, #60 TAB 5 Refills 07/20/20 Diltiazem Hcl (DILTIAZEM 24HR CD) 120 Mg Cap.er.24h, 1 CAP PO DAILY for HTN for 30 Days, #30 CAP 0 Refills 07/20/20 MAGEN DELEON MD Jul 24, 2020 12:09
[2020-07-24] MEDS ORDERED: MUPI22OI2 NS (12:57)
[2020-07-24] MEDS ORDERED: CHLO118L3 TP (12:57)
--- NOTE | 2020-07-24 13:01 | PDOC3 ---
Discharge Summary Visit Information Date of Admission: Jul 19, 2020 Date of Discharge: Jul 24, 2020 Admitting Diagnosis: Left arm cellulitis Final Diagnosis Problems Medical Problems: (1) Cellulitis Status: Acute Brief Hospital Course Allergies Allergies Coded Allergies Type Severity Reaction Last Updated Verified daptomycin Adverse Reaction Intermediate Nausea and Vomiting 07/23/20 Yes Vital Signs Vital Signs Date Time Temp Pulse Resp B/P (MAP) Pulse Ox O2 Delivery O2 Flow Rate FiO2 07/24/20 11:00 98.5 79 18 153/69 (97) 98 Room Air 98.5 07/23/20 17:40 2.0 Lab Results Laboratory Tests Test 07/24/20 11:25 Creatine Kinase 95 U/L (39-308) Laboratory Tests Test 07/24/20 11:25 Creatine Kinase 95 U/L (39-308) Brief Hospital Course Mr Mcclelland is a 29 yo M w/ PMHx Hep C, afib, HLD, chronic pain who is [facility] who was sent to ED with c/o left upper extremity swelling, redness, pain which was initially on his lateral left forearm and spread to his axilla. He did try to express discharge from a pun ctate wound site on lateral arm, but no purulence was expressed. He was started on trimethoprim/sulfamethoxazole x 3 doses and when he was noted with progression of rash with lymphagitic spread and worsening redness, tenderness and generalized rigors and chills he was sent to ED. Non vascular US revealed soft tissue edema, no abscess. On admit noted with WBC 15, CRP 29.2, Cr 1.2. Started on empiric vancomycin and Zosyn. 07/20: Afebrile. He tells me the swelling and redness are worse from admission. He has been previously admitted for this and we have discussed this. No SOB or CP. No N/V/D. 07/21: Febrile to 101.2 F overnight. Swelling and redness same has had some drainage through the punctate area on his left lateral forearm. Orthopedic surgery consulted for further recommendations given swelling around the left elbow joint. CT negative for abscess. 07/22: Afebrile. No shortness of breath or chest pain no nausea vomiting or diarrhea. Vanc trough low. Still with significant pain. 07/23: Staph on prelim wound culture, MRSA. Afebrile no shortness of breath or chest pain no nausea vomiting or diarrhea. Very diaphoretic during daptomycin infusion. Solumedrol, benadryl, pepcid for possible reaction to daptomycin Afebrile. Transition to zyvox overnight. Wound looks significantly better No CP or SOB. No IV pain meds. D/w ID to discharge to custodial. Consults: Ortho, ID Problem list: Left upper extremity cellulitis - with abscess drained. No obvious left elbow involvement. lymphangitic spread to left axilla. Cont antibiotics. ID consulted and ortho. PO zyvox. Sepsis - due to cellulitis, will monitor. No respiratory symptoms. He is regula rly tested for COVID at custodial, negative most recently Chronic hepatitis C - unknown viral titer Smoker - counseled on cessation H/o substance abuse - he denies using while incarcerated. Accurate history is difficult with corrections officers present Severe anxiety with multiple suicidal attempts - reportedly occurred at [facility] over a year ago Paroxysmal AFIB - sinus. previously taken off xarelto due to suicide attempt. will cont on diltiazem and prn flecainide Greater than 30 minutes spent on d/c back to custodial Discharge Information Condition at Discharge: Improved Follow Up: Weeks (1) Disposition/Orders: D/C to Another Facility Scheduled Chlorhexidine Gluconate (Chlorhexidine Gluconate) 118 Ml Liquid, 1 DEVIN TP DAILY for MRSA decolonization for 2 Days, #237 Ref 0 Prescribed by: MAGEN DELEON MD on 07/24/20 1257 Diltiazem Hcl (Diltiazem 24HR Cd) 120 Mg Cap.er.24h, 1 CAP PO DAILY for HTN for 30 Days, #30 Ref 0 (Reported) Entered as Reported by: DOM FAY on 07/20/20156 Last Action: Continued on 07/20/20245 by DOM HER Flecainide Acetate (Flecainide Acetate) 100 Mg Tablet, 1 TAB PO BID for abdnormal heart beats, #60 Ref 5 (Reported) Entered as Reported by: DOM FAY on 07/20/20156 Last Action: Converted on 07/20/20245 by DOM HER Lactobacillus Rhamnosus Gg (Culturelle) 1 Each Cap.sprink, 1 CAP PO BID for Cellulitis for 14 Days, #28 Prescribed by: MAGEN DELEON MD on 07/24/20 1208 Linezolid (Zyvox) 600 Mg Tablet, 600 MG PO BID for MRSA Wound for 14 Days, #28 Prescribed by: MAGEN DELEON MD on 07/24/20 1208 Mupirocin (Mupirocin Ointment) 22 Gm Oint...g., 1 DEVIN NS TID for Nasal for 5 Days, #1 Prescribed by: MAGEN DELEON MD on 07/24/20 1257 Scheduled PRN Acetaminophen (Tylenol) 325 Mg Tablet, 650 MG PO PRN Q6HRS PRN for MILD PAIN / TEMP > 100.3'F for 30 Days, #120 Prescribed by: MAGEN DELEON MD on 07/24/20 1208 Justicifation of Admission Dx: Justifications for Admission: Justification of Admission Dx: Yes Comments: Cellulitis failed outpatient therapy MAGEN DELEON MD Jul 24, 2020 13:01
--- NOTE | 2020-07-24 14:25 | NUR ---
Report called to Jayne COPE at [facility]. Patient to discharge back to facility today.
[2020-07-24 15:00] VITALS: BP 159/65
--- NOTE | 2020-07-24 15:50 | NUR ---
Discharge Note: ARCELIA LEE Discharge instructions and discharge home medications reviewed with Other facility and a copy given. All questions have been answered and understanding verbalized. The following instructions and handouts were given: discharge instructions, copy of chart, and new prescriptions. Discontinued lines and drains: Peripheral IV discontinued intact. Patient discharged to Home or Self Care with Law Enforcement via Wheelchair off unit by [employer].
== END 2020-07-24 15:50 | DRG 872 ==
LOC: EEVIPCON 13:04 → ER 13:04 → ED HOLD 15:29 → 5 NORTH 17:36
PROVIDERS: ADMIT Internal Medicine; ATTEND Internal Medicine
DX: A41.02 Sepsis due to Methicillin resistant Staphylococcus aureus (principal); L03.114 Cellulitis of left upper limb; L02.414 Cutaneous abscess of left upper limb; B18.2 Chronic viral hepatitis C; E78.00 Pure hypercholesterolemia, unspecified; E78.5 Hyperlipidemia, unspecified; F17.210 Nicotine dependence, cigarettes, uncomplicated; I10 Essential (primary) hypertension; I48.0 Paroxysmal atrial fibrillation; Z82.49 Family history of ischemic heart disease and other diseases of the circulatory system; F32.9 Major depressive disorder, single episode, unspecified; F41.9 Anxiety disorder, unspecified; G43.909 Migraine, unspecified, not intractable, without status migrainosus; G89.29 Other chronic pain; Z20.828 Contact with and (suspected) exposure to other viral communicable diseases; Z71.6 Tobacco abuse counseling; Z88.8 Allergy status to other drugs, medicaments and biological substances
CPT/HCPCS: 36415; 73200; 76881; 80048; 80053; 80202; 81001; 82550; 82565; 83605; 85007; 85025; 86140; 87040; 87071; 87075; 96361; 96365; 96367; 96375; J0878; J1200; J1650; J2020; J2405; J2543; J2930; J3010; J3370; J7030; J7040; J7050; U0003; 99285-25; G0378; Q0163